=== PATIENT | female | born 1930 | race Caucasian/White ===

== ENCOUNTER 2017-02-12 07:19 | Inpatient (IN) ==
[2017-02-12] MEDS ORDERED: Pantoprazole 40 MG VIAL IVP ONE (07:25)
[2017-02-12] MEDS ORDERED: Ipratropium/Albuterol Neb 3 ML ONE (07:32)
[2017-02-12] MEDS ORDERED: Ipratropium/Albuterol Neb 3 ML IH ONE (07:37)
--- NOTE | 2017-02-12 07:39 | Emergency Department Note ---
Disposition Clinical Impression: Non-STEMI (non-ST elevated myocardial infarction) Pneumonia Qualifiers: Pneumonia type: due to unspecified organism Laterality: bilateral Lung location : lower lobe of lung Qualified Code(s): J18.9 - Pneumonia, unspecified organism Disposition: Admitted As Inpatient Condition: Fair Referrals: NO,PCP [Non-Partnered Physician] - Forms: ED Satisfaction Letter Time of Disposition: 09:08 GI Bleed HPI - General Chief complaint: ED GI Bleed Stated complaint: Vomiting Blood/EDNA Time Seen by Provider: 02/12/17 07:25 Source: patient, EMS Mode of arrival: EMS Limitations: no limitations Nursing Notes Reviewed: Yes Vital Signs Reviewed: Yes - History of Present Illness HPI Narrative: 86-year-old who lives in a [facility] very difficult historian who comes in as the care provider found some dark blood on the sheet next to her. The patient is awake and does answer questions. She denies pain at this time but states and asked she is nauseated and has some shortness of breath. 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 Severity: moderate Improves with: nothing Worsens with: nothing Context: other (Patient was found with dried blood on her sheet.) Associated symptoms: Reports: nausea - Related Data Home Medications Medication Instructions Recorded Confirmed Budesonide Neb [Pulmicort Neb] 0.5 mg IH BIDR 04/29/16 05/30/16 Calcium Carbonate/Vitamin D3 1 tab PO BID 04/29/16 05/30/16 [Oyster Shell 500-Vit D3 200 Tb] CarBAMazepine [Tegretol] 200 mg PO BID 04/29/16 04/29/16 CarBAMazepine [Tegretol] 400 mg PO HS 04/29/16 04/29/16 Famotidine [Pepcid] 20 mg PO HS 04/29/16 05/30/16 FentaNYL PATCH [Duragesic] 25 mcg TD Q72H 04/29/16 05/30/16 Ferrous Sulfate [Iron Supplement] 325 mg PO BID 04/29/16 05/30/16 HYDROcodone/Acet 5/325 mg [[place] 1 tab PO HS 04/29/16 05/30/16 5-325 mg] Multivit-Min/FA/Lycopen/Lutein 1 each PO DAILY 04/29/16 05/30/16 [Certavite Sr-Antioxidant Tab] OLANZapine [Zyprexa Zydis] 10 mg PO HS 04/29/16 05/30/16 Raloxifene [Evista] 60 mg PO DAILY 04/29/16 05/30/16 Eszopiclone [Lunesta] 3 mg PO HS 04/30/16 05/30/16 Previous Rx's Medication Instructions Recorded Albuterol Neb [Proventil Neb] 2.5 mg IH Q2H PRN #15 inhsol 04/30/16 Montelukast [Singulair] 10 mg PO DAILY 30 Days 04/30/16 PredniSONE 10 mg PO DAILY #50 tablet 04/30/16 Albuterol Neb [Proventil Neb] 2.5 mg IH Q4HR #30 vial.neb 07/03/16 Azithromycin [Zithromax] 250 mg PO DAILY #6 tablet 07/03/16 PredniSONE 10 mg PO DAILY #21 tablet 07/03/16 Allergies Allergy/AdvReac Type Severity Reaction Status Date / Time tb skin test Allergy See Uncoded 05/30/16 08:08 Comments All systems ED: reviewed and negative except as stated. Constitutional: Denies: fever, chills, weakness, weight change Eyes: Denies: eye pain, eye discharge, vision change ENT ED: Denies: ear pain, throat pain, dental pain, hearing loss, epistaxis, congestion, dysphagia Cardiovascular: Denies: chest pain, palpitations, dyspnea on exertion, edema, syncope Respiratory: Reports: cough, dyspnea. Denies: wheezes, hemoptysis, stridor Gastrointestinal: Reports: nausea, other (Dark blood on the sheet.). Denies: abdominal pain, vomiting, diarrhea, constipation, hematemesis, melena, hematochezia Genitourinary: Denies: dysuria, frequency, hematuria, discharge Musculoskeletal: Denies: back pain, neck pain, arthralgia, myalgia Integumentary: Denies: rash, abrasion, lesions Neurological: Denies: headache, weakness, numbness, paresthesias, confusion, abnormal gait, vertigo Psychiatric: Denies: anxiety, depression, suicidal thoughts, homicidal thoughts , auditory hallucinations, visual hallucinations Endocrine: Denies: fatigue Hematological/Lymphatic: Denies: easy bleeding, easy bruising Allergic/Immunologic: Denies: facial swelling, urticaria Past Medical History - Past Medical History Medical history: Reports: asthma, GERD, osteoporosis, other Psychiatric history: Reports: schizophrenia - Social History Smoking Status: Unknown if ever smoked Smokeless Tobacco Status: No Alcohol use: Reports: unknown Drug use: Reports: unknown Physical Exam - General Limitations: no limitations General appearance: alert - Head Head exam: atraumatic, normocephalic, normal inspection - Eye Eye exam: Present: normal appearance, PERRL, EOMI - ENT ENT exam: normal exam, normal oropharynx, mucous membranes moist - Neck Neck exam: Present: normal inspection, full ROM, trachea midline - Chest Chest inspection: Present: normal inspection, symmetric chest wall rise - Respiratory Respiratory exam: Present: wheezes - Cardiovascular Cardiovascular exam: Present: regular rate, normal rhythm, normal heart sounds - Abdominal Exam Abdominal exam: Present: soft, Non-Tender. Absent: tenderness, distention, guarding, rebound, rigidity - Extremities Exam Extremities exam: Present: normal inspection, full ROM. Absent: tenderness, pedal edema - Expanded Lower Extremity Exam Neurovascular/Tendon exam: Absent: motor deficit, sensory deficit, tendon deficit Gait: observed and normal - Back Exam Back exam: Present: normal inspection, full ROM. Absent: tenderness - Neurological Exam Neurological exam: Present: alert, oriented X3 - Psychiatric Psychiatric exam: Present: normal affect, normal mood - Skin Skin exam: Present: warm, dry, intact, normal color Course - Reevaluation(s) Reevaluation #1: Spoke to the patient's guardian Nirmal Keane ATILIO, the patient is a full code. Time: 08:05 Reevaluation #2: 86-year-old female who was found to have some dark material on her pillow beside her head this morning service GI bleed. Also set a cough and some shortness of breath. Workup included a chest x-ray that showed bilateral air space disease. CT of the abdomen shows a dilated colon was not significantly changed from previous. Patient's troponin is positive her EKG is unchanged. Patient will report was GI bleeding. We will not give heparin based on the fact that she had a large amount of brown material on her pillow that the home felt was blood. Time: 09:06 - Consultations Consultation #1: I discussed the case with malinda Gentile. Time: 09:03 Consultation #2: I discussed the CT scan results with the radiologist. He notes new airspace disease consistent with pneumonia which we are treating. 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 Patient's abdominal exam is negative she soft tissues nontender. Rectal exam was negative I didn't feel any masses. Time: 09:03 Vital Signs Temperature 98.2 F 02/12/17 07:30 Pulse Rate 91 02/12/17 07:30 Respiratory Rate 22 02/12/17 07:30 Blood Pressure 118/84 02/12/17 07:30 O2 Sat by Pulse Oximetry 86 02/12/17 07:30 Temperature 98.2 F 02/12/17 07:30 Pulse Rate 92 02/12/17 08:17 Respiratory Rate 18 02/12/17 08:17 Blood Pressure 105/55 02/12/17 08:17 O2 Sat by Pulse Oximetry 92 02/12/17 08:17 Oxygen Delivery Oxygen Delivery Nasal Cannula GI Bleed - Lab Data Lab results reviewed: Yes I reviewed the patient's lab results. Result diagrams: 02/12/17 07:53 02/12/17 07:53 Lab Results 02/12/17 02/12/17 02/12/17 Range/Units 07:50 07:51 07:53 WBC (4.3-11.1) K/mcL RBC (3.82-4.97) M/mcL Hgb (11.5-15.4) g/dL Hct (35.3-44.9) % MCV (83.0-100.0) fL MCH (28.0-33.3) pg MCHC (31.6-35.5) g/dL RDW (11.5-14.5) % Plt Count (140-400) K/mcL MPV (9.4-12.4) fL Seg Neutrophils % % Band Neutrophils % (0-4) % Lymphocytes % % Monocytes % % Neutrophils # (1.6-8.9) K/mcL Lymphocytes # (0.6-4.6) K/mcL Monocytes # (0.0-1.3) K/mcL Platelet Estimate (Normal) Immature Plt Fraction (1.1-6.1) % PT (9.4-12.1) Seconds INR APTT (26.0-36.0) Seconds ABG pH 7.42 (7.32-7.45) pH Units ABG pCO2 46 H (35-45) mmHg ABG pO2 48 L* (85-104) mmHg ABG HCO3 29.8 H (21-27) mEQ/L ABG Total CO2 31.2 H (20-26) mEq/L ABG O2 Saturation 84 L (95-98) % ABG Base Excess 4.7 H (-2.0 to 3.0) mEq/L Blood Gas Modality [place] Inspired O2 28 % Sodium (136-145) mEq/L Potassium (3.5-4.5) mEq/L Chloride (98-109) mEq/L Carbon Dioxide (19-29) mEq/L BUN (7-20) mg/dL Creatinine (0.57-1.11) mg/dL Est GFR ( Amer) (> 60) Est GFR (Non-Af Amer) (> 60) BUN/Creatinine Ratio (6-26) Glucose (70-99) mg/dL Calculated Osmolality (280-300) Lactic Acid 1.5 (0.5-2.2) mmol/L Calcium (8.6-10.8) mg/dL Troponin I (0-0.03) ng/mL Lipase (8-78) Units/L Stool Occult Blood Negative (Negative) Blood Type 02/12/17 02/12/17 02/12/17 Range/Units 07:53 07:53 07:53 WBC 13.3 H (4.3-11.1) K/mcL RBC 3.41 L (3.82-4.97) M/mcL Hgb 10.7 L (11.5-15.4) g/dL Hct 33.2 L (35.3-44.9) % MCV 97.4 (83.0-100.0) fL MCH 31.4 (28.0-33.3) pg MCHC 32.2 (31.6-35.5) g/dL RDW 12.6 (11.5-14.5) % Plt Count 265 (140-400) K/mcL MPV 10.3 (9.4-12.4) fL Seg Neutrophils % 70.0 % Band Neutrophils % 24.0 H (0-4) % Lymphocytes % 4.0 % Monocytes % 2.0 % Neutrophils # 12.5 H (1.6-8.9) K/mcL Lymphocytes # 0.5 L (0.6-4.6) K/mcL Monocytes # 0.3 (0.0-1.3) K/mcL Platelet Estimate Normal (Normal) Immature Plt Fraction 7.4 H (1.1-6.1) % PT 11.4 (9.4-12.1) Seconds INR 1.1 APTT 28.1 (26.0-36.0) Seconds ABG pH (7.32-7.45) pH Units ABG pCO2 (35-45) mmHg ABG pO2 (85-104) mmHg ABG HCO3 (21-27) mEQ/L ABG Total CO2 (20-26) mEq/L ABG O2 Saturation (95-98) % ABG Base Excess (-2.0 to 3.0) mEq/L Blood Gas Modality Inspired O2 % Sodium (136-145) mEq/L Potassium (3.5-4.5) mEq/L Chloride (98-109) mEq/L Carbon Dioxide (19-29) mEq/L BUN (7-20) mg/dL Creatinine (0.57-1.11) mg/dL Est GFR ( Amer) (> 60) Est GFR (Non-Af Amer) (> 60) BUN/Creatinine Ratio (6-26) Glucose (70-99) mg/dL Calculated Osmolality (280-300) Lactic Acid (0.5-2.2) mmol/L Calcium (8.6-10.8) mg/dL Troponin I 0.06 H* (0-0.03) ng/mL Lipase (8-78) Units/L Stool Occult Blood (Negative) Blood Type 02/12/17 02/12/17 Range/Units 07:53 07:53 WBC (4.3-11.1) K/mcL RBC (3.82-4.97) M/mcL Hgb (11.5-15.4) g/dL Hct (35.3-44.9) % MCV (83.0-100.0) fL MCH (28.0-33.3) pg MCHC (31.6-35.5) g/dL RDW (11.5-14.5) % Plt Count (140-400) K/mcL MPV (9.4-12.4) fL Seg Neutrophils % % Band Neutrophils % (0-4) % Lymphocytes % % Monocytes % % Neutrophils # (1.6-8.9) K/mcL Lymphocytes # (0.6-4.6) K/mcL Monocytes # (0.0-1.3) K/mcL Platelet Estimate (Normal) Immature Plt Fraction (1.1-6.1) % PT (9.4-12.1) Seconds INR APTT (26.0-36.0) Seconds ABG pH (7.32-7.45) pH Units ABG pCO2 (35-45) mmHg ABG pO2 (85-104) mmHg ABG HCO3 (21-27) mEQ/L ABG Total CO2 (20-26) mEq/L ABG O2 Saturation (95-98) % ABG Base Excess (-2.0 to 3.0) mEq/L Blood Gas Modality Inspired O2 % Sodium 139 (136-145) mEq/L Potassium 4.3 (3.5-4.5) mEq/L Chloride 103 (98-109) mEq/L Carbon Dioxide 30 H (19-29) mEq/L BUN 28 H (7-20) mg/dL Creatinine 0.79 (0.57-1.11) mg/dL Est GFR ( Amer) > 60 (> 60) Est GFR (Non-Af Amer) > 60 (> 60) BUN/Creatinine Ratio 35 H (6-26) Glucose 103 H (70-99) mg/dL Calculated Osmolality 294 (280-300) Lactic Acid (0.5-2.2) mmol/L Calcium 8.8 (8.6-10.8) mg/dL Troponin I (0-0.03) ng/mL Lipase < 4 L (8-78) Units/L Stool Occult Blood (Negative) Blood Type O POSITIVE - Radiology Data Radiology results reviewed: Yes I reviewed the patient's radiology results. Chest X-Ray 02/12/17 07:25 IMPRESSION: Low lung volumes. Asymmetric elevation of the right hemidiaphragm, stable. Airspace opacities in the right hemithorax, may be related to pulmonary edema versus pneumonia, new since the prior study. Trace right pleural effusion. D/ / Fredis Villareal MD / Fredis Villareal MD Interpreting Provider: Fredis Villareal MD Abdomen/Pelvis CT 02/12/17 07:29 IMPRESSION: Severe chronic colo rectal distention with large amount of stool and fluid throughout the colon increase in severity since prior examination. Findings suggest severe chronic colonic ileus. No definite evidence of a small bowel obstruction. Bibasilar airspace consolidation with bronchiectasis. Findings suggest acute on chronic aspiration pneumonia. Moderate size hiatal hernia not significantly changed since prior examination. Findings were discussed with Jarad Marc at 9:03 am on 02/12/2017. D/ / Nate Avendaño MD / Nate Avendaño MD Interpreting Provider: Nate Avendaño MD - EKG Data EKG attestation: Yes I reviewed and interpreted this EKG. 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 The aggregate critical care time was [30] minutes. This time is in addition to time spent performing reported procedures but includes the following: [x] Data Review and interpretation [x] Patient assessment and monitoring of vital signs [x] Documentation [x] Medication orders and management
[2017-02-12 07:58] LABS: ABG Base Excess 4.7 mEq/L (-2.0 to 3.0); ABG HCO3 29.8 mEQ/L (21-27); ABG Oxygen Saturation 84 % (95-98); ABG PCO2 46 mmHg (35-45); ABG PH 7.42 pH Units (7.32-7.45); ABG TCO2 31.2 mEq/L (20-26)
[2017-02-12 08:01] LABS: ABG PO2 48 mmHg (85-104); Blood Gas FiO2 28 %
[2017-02-12 08:09] LABS: Hematocrit 33.2 % (35.3-44.9); Hemoglobin 10.7 g/dL (11.5-15.4); Immature Platelets 7.4 % (1.1-6.1); Lymphocytes # 0.5 K/mcL (0.6-4.6); Mean Corpuscular HGB Conc 32.2 g/dL (31.6-35.5); Mean Corpuscular Hemoglobin 31.4 pg (28.0-33.3); Mean Corpuscular Volume 97.4 fL (83.0-100.0); Mean Platelet Volume 10.3 fL (9.4-12.4); Platelet Count 265 K/mcL (140-400); Red Blood Count 3.41 M/mcL (3.82-4.97); Red Cell Distribution Width 12.6 % (11.5-14.5)
[2017-02-12 08:13] LABS: INR 1.1; Prothrombin Time 11.4 Seconds (9.4-12.1)
[2017-02-12 08:16] LABS: Activated Partial Thrombo Time 28.1 Seconds (26.0-36.0)
[2017-02-12 08:20] LABS: BUN/Creatinine Ratio 35 (6-26); Calcium 8.8 mg/dL (8.6-10.8); Carbon Dioxide 30 mEq/L (19-29); Chloride 103 mEq/L (98-109); Glucose 103 mg/dL (70-99); Osmolality,Calculated 294 (280-300); Potassium 4.3 mEq/L (3.5-4.5); Sodium 139 mEq/L (136-145); eGFR For African Americans > 60 (> 60); eGFR For Non-African Americans > 60 (> 60)
[2017-02-12 08:21] LABS: Blood Urea Nitrogen 28 mg/dL (7-20)
[2017-02-12] MEDS ORDERED: Piperacillin/Tazobactam 3.375 GM in D5% in Water (Mini-Bag+) 100 ML IVPB ONE (08:33)
[2017-02-12 08:36] LABS: Lipase < 4 Units/L (8-78)
[2017-02-12 08:43] LABS: Monocytes # 0.3 K/mcL (0.0-1.3); Neutrophils # 12.5 K/mcL (1.6-8.9); Platelet Estimate Normal (Normal)
[2017-02-12] MEDS ORDERED: Acetaminophen 325 MG TABLET PO PRN (10:24)
[2017-02-12] MEDS ORDERED: Naloxone 0.4 MG/ML INJ IVP PRN (10:24)
[2017-02-12] MEDS ORDERED: Ondansetron 4 MG/2 ML VIAL IVP PRN (10:24)
--- NOTE | 2017-02-12 10:55 | Internal Med History&Physical ---
<Sergio Corbett - Last Filed: 02/12/17 15:58> Date of Encounter: 02/12/17 Internal Medicine - H&P: HPI History of present illness: Ms. Smith is a 86 year old female Internal Medicine - H&P: Meds Budesonide Neb [Pulmicort Neb] 0.5 mg IH BIDR 04/29/16 [History] Calcium Carbonate/Vitamin D3 [Oyster Shell 500-Vit D3 200 Tb] 1 tab PO BID 04/29 [History] CarBAMazepine [Tegretol] 200 mg PO BID 04/29/16 [History] CarBAMazepine [Tegretol] 400 mg PO HS 04/29/16 [History] Famotidine [Pepcid] 20 mg PO HS 04/29/16 [History] FentaNYL PATCH [Duragesic] 25 mcg TD Q72H 04/29/16 [History] Ferrous Sulfate [Iron Supplement] 325 mg PO BID 04/29/16 [History] Multivit-Min/FA/Lycopen/Lutein [Certavite Sr-Antioxidant Tab] 1 tab PO DAILY 01/10 [History] OLANZapine [Zyprexa Zydis] 10 mg PO HS 04/29/16 [History] Raloxifene [Evista] 60 mg PO DAILY 04/29/16 [History] HYDROcodone/Acet 10/325 mg [[place] 10-325 mg] 1 tab PO DAILY 02/12/17 [History] Mirtazapine [Remeron] 15 mg PO HS 02/12/17 [History] Allergies tb skin test Allergy (Uncoded 05/30/16 08:08) See Comments All Systems PM: A 10-system review of systems was performed and is negative for pertinent findings except as documented above in the HPI. - Constitutional Vitals: Temp Pulse Resp BP Pulse Ox 98.8 F 86 18 113/52 97 02/12/17 15:38 02/12/17 15:38 02/12/17 15:38 02/12/17 15:38 02/12/17 15:38 Internal Med - H&P Results - Labs CBC & Chem 7: 02/12/17 10:48 02/12/17 10:48 Labs: Short CBC 02/12/17 Range/Units 10:48 WBC 13.7 H (4.3-11.1) K/mcL Hgb 10.0 L (11.5-15.4) g/dL Hct 31.4 L (35.3-44.9) % Plt Count 241 (140-400) K/mcL Neutrophils # 8.0 (1.6-8.9) K/mcL BMP 02/12/17 10:48 Sodium 141 Potassium 4.0 Chloride 104 Carbon Dioxide 29 BUN 27 H Creatinine 0.82 Glucose 122 H Calcium 8.5 L Cardiac Enzymes 02/12/17 Range/Units 10:48 Troponin I 0.11 H* (0-0.03) ng/mL Liver Function 02/12/17 Range/Units 10:48 Total Bilirubin 0.6 (0.2-1.2) mg/dL AST 22 (5-34) Units/L ALT 17 (0-55) Units/L Alkaline Phosphatase 82 (38-126) Units/L Albumin 2.9 L (3.5-5.0) g/dL Urine 02/12/17 Range/Units 14:04 Urine Color Yellow (Yellow) Urine Clarity Cloudy A (Clear) Urine pH 6.5 (5.0-8.0) pH Units Ur Specific [place] 1.021 (1.010-1.025) Urine Protein Trace (Neg-Trace) mg/dL Urine Glucose (UA) Normal (Normal) mg/dL - Attending Attestation I examined this patient and my medical decision-making was reviewed with the [employer]/PA/Advanced Practice Nurse/Resident Physician. I agree with the documented findings, disposition and treatment plan as described except to the extent set forth below. I saw and examined this patient independently. Case D/W A AUXILIARY, I agree with his documentation. Patient admitted due to possible upper GI bleeding, radiological evidence of aspiration pneumonia with hypoxemia along with abdomen and CT findings concerning for ileus. We will continue with IV fluids, monitor hemoglobin, monitor troponins. We will avoid the use of medications with potential anticholinergic effect. Will not use heparin in light of possible GI bleeding. IV PPIs. Monitor cardiac biomarkers. Repeat electrolytes. NPO for now. GI eval. Patient is full code. Consider speech and swallow evaluation. <Pola Pennington - Last Filed: 02/12/17 18:25> Date of Encounter: 02/12/17 Time of Encounter: 10:00 Assessment and Plan (1) Sepsis Current visit: Yes Status: Acute Assess: Patient presents with infection related to possible aspiration pneumonia. Patient's white count 13.3 on admission. WBC is now 13.7 on latest blood draw. Patient presenting with bandemia with bands at 24.0 on admission. Plan: Continue Zosyn for infection coverage related to aspiration pneumonia Lactate level ordered Urinalysis ordered for possible UTI [place] catheter placement ordered Continue to monitor vitals Qualifiers: Sepsis type: sepsis due to unspecified organism Qualified Code(s): A41.9 - Sepsis, unspecified organism (2) GI bleed Current visit: Yes Status: Acute Assess: Patient presents to ED from [facility] due to bright blood in mouth and small amount found on sheets. Bleed is from unknown source. On examination, patient has area and roof of mouth which appears to be clotting. This could also be possible source of bleeding. Patient's caregivers report this area as new. Patient also presents as dehydrated. Plan: IV bolus ordered IV fluids ordered Nothing by mouth status Further assessment of area in mouth IV protonix ordered Zofran ordered PRN for nausea GI consult ordered Monitor hemoglobin/possible anemia Qualifiers: Gastritis type: unspecified gastritis Qualified Code(s): K29.71 - Gastritis , unspecified, with bleeding (3) Pneumonia Current visit: Yes Status: Acute Assess: Chest x-ray dated 02/12/17 shows asymmetric elevation of the right hemidiaphragm , stable. Airspace opacities in the right hemothorax. May be related to pulmonary edema versus pneumonia. Trace right pleural effusion. Aspiration pneumonia possible. Plan: Continuation of Zosyn Continuation of Pulmicort neb Continuation of order for O2 via nasal cannula to be titrated if SPO2 is less than 92% Continuous pulse ox monitoring Respiratory therapy consult ordered Qualifiers: Pneumonia type: aspiration pneumonia Aspiration pneumonia type: unspecified Laterality: unspecified laterality Lung location: unspecified part of lung Qualified Code(s): J69.0 - Pneumonitis due to inhalation of food and vomit (4) Ileus Current visit: Yes Status: Acute Assess: Patient presents with nausea and GI upset. Abdominal CT of 02/12/17 shows shows dilated loops of small bowel and fluid-filled small bowel which may be suggestive of ileus, colonic ileus, and a large amount of stool suggestive of fecal impaction. Plan: NPO status GI consult ordered Monitor I & O (5) Hypoxemia Current visit: Yes Status: Acute Assess: Patient's caregivers report periods of shortness of breath. Maybe due to possible aspiration pneumonia or pulmonary edema. Plan: Continuation of Zosyn for possible aspiration pneumonia Continuation of Pulmicort neb Continuation of O2 at 2 L via nasal cannula. O2 to be titrated if SpO2 less than 92% Continuous pulse ox (6) Non-STEMI (non-ST elevated myocardial infarction) Current visit: Yes Status: Acute Assess: Patient presents with history of abnormal EKGs. Plan: Continuous cardiac monitoring ordered Trend troponins 3 EV echocardiogram ordered (7) Abnormal EKG Current visit: Yes Status: Chronic Assess: Patient presents with history of abnormal EKGs. Plan: Continuous cardiac monitoring ordered Repeat EKG is necessary Trend troponins 3 EV echocardiogram ordered (8) Pain Current visit: Yes Status: Acute Assess: Patient's caregivers report history of chronic back pain related to osteoporosis diagnosis. Plan: Continuation of fentanyl patch Acetaminophen ordered for mild pain rated 1-3 Hydrocodone ordered for pain rated 4-6 Monitor patient's pain (9) DVT prophylaxis Current visit: Yes Status: Acute Assess: Patient to be placed on DVT prophylaxis due to bed rest status and history of abnormal EKGs. Plan: Compression hose ordered Patient should not be placed on blood thinners due to current bleeding status of unknown origin Internal Medicine - H&P: HPI Chief complaint: Sepsis, GI bleed, aspiration pneumonia Admitted From: Long-term Nursing Facility Plans for Post Hospital Care: Transfer Alf Care History of present illness: Ms. Smith is a 86 year old female who presents from the ED with chief complaint of possible GI bleed, aspiration pneumonia, and sepsis based on her presentation. Patient is unable to verbalize clearly due to her mental health status, so her two caregivers provided most of the information during assessment and exam. Patient has a history of abnormal EKGs as well. Patient was transported from a LTC facility when caregivers noticed bright blood in her mouth and a small amount on her sheets. Vital signs during exam were: HR - 88 bpm, O2 - 93% on 2L via nasal cannula, RR - 20, BP - 101/49. Patient's caregivers deny recent illness or fever. They also report the patient was not eating as usual yesterday (02/11/17) and only ate a small meal and snack. They report her last BM was yesterday and consisted of diarrhea which they report is her normal stool consistency. They deny fecal occult blood. Patient also presents as dehydrated on exam with dry mucous membranes and furrowed tongue. Upon exam, patient was found to have an area on the roof of her mouth with clotting present which may also account for the bright blood. Caregivers report this area in the mouth as new. CT scan of abdomen dated 02/12/17 shows dilated loops of small bowel and fluid-filled small bowel which may be suggestive of ileus, colonic ileus, and a large amount of stool suggestive of fecal impaction. GI consult was ordered. Caregivers also report periods of SOB. CXR dated 02/12/17 shows airspace opacities in the right hemithorax which may be indicative of pleural edema versus pneumonia. There is trace right pleural effusion. Patient's WBCs 13.3 on admission and 13.7 after second draw. Bands were 24.0 on admission. Troponins to be trended. Lactic acid ordered. U/A ordered. Patient to continue on Zosyn for possible infection coverage. GI consult ordered. EV Echo ordered due to patient's history of abnormal EKGs. Patient placed on NPO status and IV protonix ordered to address GI upset/ nausea. Patient is full code status and has a legal POA designated. Past Med Surg Social Fam HX - Past Medical History Medical history: GERD, osteoporosis, other Psychiatric history: schizophrenia - Past Surgical History Surgical History: colostomy (Ms. Smith's caregivers report she had a colostomy years ago for unknown reason and it was reversed. ) - Social History Smoking Status: Unknown if ever smoked Smokeless Tobacco Status: No Alcohol use: unknown Drug use: unknown - Family History Mother Race: Family Member Ethnicity: Non- Living Status: Age at : 80 Cause of : Unknown Hx Family Medical Disorders: No (No known health issues) Father Race: Family Member Ethnicity: Non- Living Status: Age at : 80 Cause of : Unknown Hx Family Medical Disorders: No (No known health issues) Brother Race: Family Member Ethnicity: Non- Living Status: Still Living Hx Family Medical Disorders: No (No known health issues) Sister Race: Family Member Ethnicity: Non- Living Status: Still Living Hx Family Medical Disorders: No (No known health issues) ROS unobtainable: other (Patient H&P obtained from two caregivers due to patient 's inability to verbalize clearly. Caregivers report this status as her normal baseline ability.) All Systems PM: A 10-system review of systems was performed and is negative for pertinent findings except as documented above in the HPI. - Constitutional Constitutional: as per HPI, anorexia Additional comments: Ms. Smith's caregivers report a loss of appetite yesterday (roughly 1 meal and 1 snack). Patient normally eats meals x3 and snacks throughout the day. - EENT Eyes: no change in vision, no discharge, no pain, no photophobia Ears: no ear discharge, no ear pain, no tinnitus Nose, mouth and throat: dry mouth, other, no dysphagia, no nasal discharge, no neck pain, no sore throat Additional comments: Patient currently presents as dehydrated with furrowing in tongue. Patient also has area on roof of mouth which appears to be clotting. Caregivers report this as new since they swab her mouth daily and have not seen this before. This could account for the small amount of bright blood found in mouth and on sheets. - Breasts Breasts: as per HPI - Cardiovascular Cardiovascular ROS IM: as per HPI, dyspnea Additional comments: Patient's caregivers report periodic SOB in patient. - Respiratory Respiratory: as per HPI, dyspnea Additional comments: Caregivers report occasional SOB in patient. - Gastrointestinal Gastrointestinal: diarrhea Additional comments: Patient's caregivers report she has 2 to 3 BMs per day consisting of diarrhea ( sometimes explosive). They report her last BM was diarrhea yesterday. - Genitourinary Genitourinary: urinary incontinence, no change in urinary stream, no dysuria, no flank pain, no hematuria Additional comments: Ms. Smith's caregivers report she sometimes has urinary incontinence (sporadic), but she will usually alert them when she needs to urinate. Menstruation: post menopausal - Musculoskeletal Musculoskeletal ROS IM: back pain, no numbness, no tingling Additional comments: Patient's caregivers report she has back pain related to osteoporosis which she takes hydrocodone/acetaminophen (5/325 mg 1x daily) and uses a fentanyl patch every 48 hours. - Integumentary Integumentary IM: no rash, no unusual bruising - Neurological Neurological ROS: abnormal speech, confusion, lack of coordination Additional comments: Patient's caregivers report her current status as her baseline (inability to verbalize, mild confusion, and a lack of coordination). - Psychiatric Psychiatric: as per HPI, change in appetite Additional comments: Ms. Smith's caregivers report patient's reduced appetite over the past 24 hours. - Endocrine Endocrine IM: as per HPI - Hematologic/Lymphatic Hematologic/Lymphatic: as per HPI Additional comments: Patient was found in bed at LTC facility with a small amount of bright blood in her mouth and drops of blood on her sheets from unknown source. - Allergic/Immunologic Allergic/Immunologic: as per HPI Additional comments: Patient's caregivers deny any allergies besides TB skin test. - Constitutional Vitals: Temp Pulse Resp BP Pulse Ox 98.2 F 85 18 101/49 94 02/12/17 07:30 02/12/17 09:08 02/12/17 09:55 02/12/17 09:55 02/12/17 10:27 General appearance: Present: A&O X 1, underweight Exam: Ms. Smith is unable to verbalize answers to questions, so her two caregivers provided information during assessment and examination. Ms. Smith is oriented to her name. Patient is underweight with a BMI of 16.3. - Head Head exam: Present: atraumatic, normocephalic - Eye Eye exam: Present: PERRL Pupils: Present: PERRL Additional comments: Patient partially opens her eyes when addressed or examined which her caregivers report as her normal. - ENT ENT exam: Present: mucous membranes dry Additional comments: Ms. Smith appears to be dehydrated. While patient cannot verbalize clearly, she can hear commands and simple explanations. - Neck Neck exam general surgery: Present: supple, trachea midline - Respiratory Respiratory exam: Absent: accessory muscle use, rales, rhonchi, wheezes Additional comments: Patient's RR = 20 with SpO2 = 93% on 2L of O2 via nasal cannula. Patient does not present as SOB or in respiratory distress. - Cardiovascular Cardiovascular exam: Present: RRR, +S1, +S2. Absent: diastolic murmur, gallop, rubs, systolic murmur - GI/Abdominal GI/Abdominal exam: Present: diminished bowel sounds, hypoactive bowel sounds, soft Additional comments: Patient's abdomen is soft and tender on palpation. hypoactive bowel sounds. Patient's last reported BM was yesterday consisting of diarrhea. - Rectal Rectal exam: Present: deferred - Additional comments: exam deferred. - Extremities Exam Extremities exam: Present: normal inspection, radial pulses palpable and symetrical - Back Exam Back exam: Present: normal inspection, vertebral tenderness Additional comments: Patient shows vertebral tenderness on examination, most likely due to osteoporosis. - Neurological Exam Neurological exam: Present: altered, speech deficit Additional comments: Ms. Smith presents with altered status, oriented to name, and inability to verbalize clearly. Her caregivers report this as her normal baseline. - Psychiatric Psychiatric exam: Present: agitated Additional comments: Patient presents with minor agitation during examination, but calms easily when spoken to. - Skin Skin exam: Present: dry, intact Internal Med - H&P Results - Labs CBC & Chem 7: 02/12/17 10:48 02/12/17 10:48 - EKG Data EKG shows normal: sinus rhythm - EKG Data Prior EKG available for review: yes Interpretation IM: other EKG comments: 02/12/17 11:36 EKG dated 02/12/17 shows sinus rhythm with marked left axis deviation and first degree AV block. EKG dated 08/02/16 shows sinus rhythm with marked left axis deviation. - Diagnostic Studies CT scan - pelvis Additional comments: CT Scan dated 02/12/17 shows: 1. Moderate-sized hiatal hernia relatively unchanged since prior examination. 2. Severe chronic colorectal distention with large amount of stool and fluid throughout the colon, suggestive of severe chronic colonic ileus. No definitive evidence of small bowel obstruction. 3. Bibasilar airspace consolidation with bronchiectasis. Findings suggest acute or chronic aspiration pneumonia. 4. Refer to CT results directly for other information. Chest x-ray Additional comments: Chest x-ray dated 02/12/17 shows asymmetric elevation of the right hemidiaphragm , stable. Airspace opacities in the right hemothorax. May be related to pulmonary edema versus pneumonia. Trace right pleural effusion.
[2017-02-12 10:59] LABS: Hematocrit 31.4 % (35.3-44.9); Mean Corpuscular HGB Conc 31.8 g/dL (31.6-35.5); Mean Corpuscular Volume 97.2 fL (83.0-100.0); Mean Platelet Volume 10.1 fL (9.4-12.4); Platelet Count 241 K/mcL (140-400); Red Blood Count 3.23 M/mcL (3.82-4.97); Red Cell Distribution Width 12.6 % (11.5-14.5)
[2017-02-12] MEDS: 0.9 % Sodium Chloride 1,000 ML IVC SCH ×2 (11:02→17:52)
[2017-02-12 11:11] LABS: Alanine Aminotransferase 17 Units/L (0-55); Albumin 2.9 g/dL (3.5-5.0); Albumin/Globulin Ratio 0.9 (1.1-2.2); Alkaline Phosphatase 82 Units/L (38-126); Aspartate Amino Transferase 22 Units/L (5-34); BUN/Creatinine Ratio 33 (6-26); Bilirubin,Total 0.6 mg/dL (0.2-1.2); Blood Urea Nitrogen 27 mg/dL (7-20); Calcium 8.5 mg/dL (8.6-10.8); Carbon Dioxide 29 mEq/L (19-29); Chloride 104 mEq/L (98-109); Globulin 3.2 g/dL (2.4-3.5); Glucose 122 mg/dL (70-99); Osmolality,Calculated 298 (280-300); Sodium 141 mEq/L (136-145); Total Protein 6.1 g/dL (6.0-8.3); eGFR For African Americans > 60 (> 60); eGFR For Non-African Americans > 60 (> 60)
[2017-02-12 11:23] LABS: Platelet Estimate Normal (Normal)
[2017-02-12 12:05] LABS: Lymphocytes # 1.4 K/mcL (0.6-4.6); Monocytes # 0.6 K/mcL (0.0-1.3)
[2017-02-12] MEDS ORDERED: 0.9 % Sodium Chloride 500 ML IVC ONE (13:02)
[2017-02-12 14:11] LABS: Bilirubin,Urine Negative (Negative); Blood,Urine Negative (Negative); Clarity,Urine Cloudy (Clear); Color,Urine Yellow (Yellow); Glucose,Urine (UA) Normal (Normal); Ketones,Urine Negative (Negative); Leukocyte Esterase,Urine Moderate (Negative); Nitrite,Urine Positive (Negative); PH,Urine 6.5 pH Units (5.0-8.0); Protein,Urine Trace mg/dL (Neg-Trace); Specific Gravity,Urine 1.021 (1.010-1.025); Urobilinogen,Urine Normal (Normal)
[2017-02-12 14:16] LABS: Bacteria,Urine Many per hpf (None-Few); Hyaline Casts,Urine None Seen per lpf (None-Few); Squamous Epithelial Cell,Urine Many per lpf (None-Few); WBC,Urine 15-30 per hpf (0-3)
[2017-02-12] MEDS: *HR* HYDROcodone/Acet 5/325 mg TABLET PO PRN (15:10)
[2017-02-12] MEDS: carBAMazepine 200 MG TABLET PO SCH ×2 (15:10→21:17)
[2017-02-12] MEDS ORDERED: 0.9 % Sodium Chloride 1,000 ML IVC ONE (16:07)
[2017-02-12] MEDS: Piperacillin/Tazobactam 3.375 GM in D5% in Water (Mini-Bag+) 100 ML IVPB SCH (16:22)
--- NOTE | 2017-02-12 16:48 | Electrocardiograph Report ---
[address] [address] Test Date: 2017-02-12 Pat Name: Cheyenne Smith Department: 104 Room: 2A37 Gender: F Transmission Tester: MSC : 1930 Requested By: Jarad Marc Order Number: [id number] Reading MD: Bailey Arvizu Measurements Intervals [place] Rate: 90 P: 51 NE: 224 QRS: -35 QRSD: 94 T: 0 QT: 335 QTc: 383 Interpretive Statements SINUS RHYTHM WITH FIRST DEGREE AV BLOCK MARKED LEFT AXIS DEVIATION INCOMPLETE RIGHT BUNDLE BRANCH BLOCK Electronically Signed On 02-12-2017 16:47:04 EDT by Bailey Arvizu
[2017-02-12] MEDS: Pantoprazole 40 MG VIAL IVP SCH (17:58)
[2017-02-12] MEDS ORDERED: Furosemide 20 MG/2 ML VIAL IVP ONE (19:04)
[2017-02-12] MEDS: OLANZapine 10 MG TAB.RAPDIS PO SCH (21:18)
[2017-02-12] MEDS: Budesonide Neb 0.5 MG/2 ML IH SCH (23:00)
[2017-02-13] MEDS: Piperacillin/Tazobactam 3.375 GM in D5% in Water (Mini-Bag+) 100 ML IVPB SCH ×3 (02:02→17:00)
[2017-02-13] MEDS: *HR* HYDROcodone/Acet 5/325 mg TABLET PO PRN ×2 (03:16→09:03)
[2017-02-13] MEDS: Pantoprazole 40 MG VIAL IVP SCH ×2 (05:45→16:59)
[2017-02-13] MEDS: 0.9 % Sodium Chloride 1,000 ML IVC SCH ×2 (06:01→22:47)
[2017-02-13 07:39] LABS: Hematocrit 30.2 % (35.3-44.9); Hemoglobin 9.7 g/dL (11.5-15.4); Mean Corpuscular HGB Conc 32.1 g/dL (31.6-35.5); Mean Corpuscular Hemoglobin 31.8 pg (28.0-33.3); Mean Platelet Volume 11.5 fL (9.4-12.4); Monocytes # 0.8 K/mcL (0.0-1.3); Platelet Count 224 K/mcL (140-400); Red Blood Count 3.05 M/mcL (3.82-4.97); Red Cell Distribution Width 13.2 % (11.5-14.5)
[2017-02-13 08:00] LABS: Lymphocytes # 1.3 K/mcL (0.6-4.6); Neutrophils # 14.4 K/mcL (1.6-8.9); Platelet Estimate Normal (Normal)
[2017-02-13 08:40] LABS: Hemoglobin 10.7 g/dL (11.5-15.4)
[2017-02-13 08:55] LABS: Alanine Aminotransferase 18 Units/L (0-55); Albumin 2.8 g/dL (3.5-5.0); Albumin/Globulin Ratio 0.8 (1.1-2.2); Alkaline Phosphatase 78 Units/L (38-126); Aspartate Amino Transferase 21 Units/L (5-34); BUN/Creatinine Ratio 29 (6-26); Bilirubin,Direct 0.2 mg/dL (0.0-0.5); Bilirubin,Indirect 0.3 mg/dL (0.0-1.2); Bilirubin,Total 0.5 mg/dL (0.2-1.2); Blood Urea Nitrogen 23 mg/dL (7-20); Calcium 8.2 mg/dL (8.6-10.8); Carbon Dioxide 28 mEq/L (19-29); Chloride 109 mEq/L (98-109); Globulin 3.3 g/dL (2.4-3.5); Glucose 80 mg/dL (70-99); Magnesium 1.7 mg/dL (1.6-2.6); Osmolality,Calculated 301 (280-300); Potassium 3.4 mEq/L (3.5-4.5); Sodium 144 mEq/L (136-145); Total Protein 6.1 g/dL (6.0-8.3); eGFR For African Americans > 60 (> 60); eGFR For Non-African Americans > 60 (> 60)
[2017-02-13] MEDS: carBAMazepine 200 MG TABLET PO SCH ×3 (09:03→21:39)
[2017-02-13] MEDS ORDERED: Potassium Chloride 40 MEQ, Lidocaine 1% 2 ML in D5% in Water 500 ML IVPB ONE (09:08)
[2017-02-13] MEDS ORDERED: Magnesium Sulfate 2 GM in D5% in Water 100 ML IVPB ONE (09:08)
[2017-02-13] MEDS: Budesonide Neb 0.5 MG/2 ML IH SCH ×2 (10:17→20:33)
--- NOTE | 2017-02-13 10:34 | ECHO - Doppler Report ---
Echocardiogram Name: Cheyenne Smith Date of Study: 02/12/2017 Date: 1930 Ht: 62.0 in Medical Record#: [id number] Age: 86 Wt: 89.0 lb Gender: Female BSA: 1.35 Order #: [id number] Location: [facility] Room #: 2A37 Reading Physician: Michele Perez DO, FACSharlene, ALIYAH Facetor: Liliana Coffey Ordering Physician: Pola Pennington CNP Primary Physician: Dawit Baez MD Indications: Abnormal EKG Impressions: LVEF 60-65%. Normal LV chamber size, wall thickness and function. Mild left ventricular diastolic dysfunction. Normal right ventricular structure and function. Mild aortic stenosis. Mean gradient 11 mmHg. Mild tricuspid regurgitation. Mild pulmonary hypertension. Estimated RVSP is 43 mmHg. Left Ventricular Wall Motion: Rest Echo Findings All wall segments showed normal motion. Findings: Study Quality * Technically adequate exam. ECG Findings * Normal sinus rhythm. Left Ventricle * LVEF 60-65%. * Normal LV chamber size, wall thickness and function. * Mild left ventricular diastolic dysfunction. Right Ventricle * Normal right ventricular structure and function. Left Atrium * Mildly dilated left atrium. Right Atrium * Normal right atrial size. Interatrial Septum * Interatrial septum not well evaluated. Aortic Valve * Trileaflet aortic valve. * Mildly calcified aortic valve leaflets. * Mild aortic stenosis. * No aortic regurgitation. Mitral Valve * Mild mitral annular calcification * Mildly thickened mitral valve leaflets. * Trace mitral regurgitation. * No mitral stenosis. Tricuspid Valve * Normal tricuspid valve structure. * Mild tricuspid regurgitation. * Mild pulmonary hypertension. * Estimated RVSP is 43 mmHg. * Estimated RA pressure is 5 mmHg. Pulmonic Valve * Normal pulmonic valve structure and function. * No pulmonic regurgitation. Aorta * Normally sized aortic root. Pericardium * The pericardium appears normal. IVC * Normal IVC dimensions and inspiratory collapse. Pulmonary Artery * Normal visualized portions of the main pulmonary artery. History 07/17/2012 a Previous Echo was performed. Measurements: BP: 113/ 52 2D Normal Values RVIDd: 4.00 cm <2.7 cm IVSd: .60 cm 0.6 - 1.0 cm LVIDd: 3.90 cm 3.7 - 5.6 cm LVPWd: .80 cm 0.6 - 1.1 cm LVIDs: 2.70 cm 1.5 - 3.6 cm AO: 2.20 cm < 4.0 cm LA: 3.90 cm 2.0 - 4.0cm %FS: 30.80 cm >25 % LVOT Diam: 1.60 cm LA volume: 35 Mitral Valve Peak E:1.26 m/sec Peak A:1.24 m/sec E/A Ratio:1 LVOT Peak Cecilio:1.27 m/sec Mean Cecilio:.76 m/sec Peak Grad:6.00 mmHg Mean Grad:3.00 mmHg Aortic Valve Peak Cecilio:2.37 m/sec Mean Cecilio:1.57 m/sec Peak Grad:22.00 mmHg Mean Grad:11.00 mmHg Valve Area:1.09 cm2 Tricuspid Valve TV Regurg Peak Grad: 38.00mmHg TV Regurg Peak Cecilio: 3.09m/sec Updated by Michele Perez DO, XAVIER, PITO LY on 02/13/2017 10:25:29 AM electronically signed on 02/13/2017 10:28:08 AM with status of Final Wall Motion Nunez: 1=Normal, 2=Hypokinesis, 3=Akinesis, 4=Dyskinesis, 5=Aneurysmal, 6=Hyperkinetic, X=Not Visualized (Blank)=Missing
--- NOTE | 2017-02-13 11:17 | Gastroenterology Consult Note ---
<NewellNirmal Sharlene - Last Filed: 02/13/17 11:15> Date of Encounter: 02/13/17 Time of Encounter: 10:00 - Assessment and plan (1) GI bleed Current Visit: Yes Status: Acute Assessment and plan: No active bleeding noted. Hgb stable. Continue to monitor for active GI bleeding. Monitor CBC and transfuse PRBC as needed. Qualifiers: Gastritis type: unspecified gastritis Qualified Code(s): K29.71 - Gastritis , unspecified, with bleeding (2) Constipation Current Visit: Yes Status: Acute Assessment and plan: CT A/P dated 02/12/17 shows dilated loops of small bowel and fluid-filled small bowel which may be suggestive of ileus, colonic ileus, and a large amount of stool suggestive of fecal impaction. Start Nulytely 500 ml every 8 hours and 2 tap water enemas. Qualifiers: Constipation type: unspecified constipation type Qualified Code(s): K59.00 - Constipation, unspecified (3) Ileus Current Visit: Yes Status: Acute (4) Pneumonia Current Visit: Yes Status: Acute Assessment and plan: Management per primary team. Qualifiers: Pneumonia type: aspiration pneumonia Aspiration pneumonia type: unspecified Laterality: unspecified laterality Lung location: unspecified part of lung Qualified Code(s): J69.0 - Pneumonitis due to inhalation of food and vomit - Time Spent With Patient Total time spent is greater than 50% in coordination of care (as documented) at patient's floor/unit and/or counseling patient: GI History of Present Illness - Data of Consult Patient: new to practice Consult date: 02/13/17 Requesting Physician: Sergio Corbett - Consult Narrative Reason for consult: Possible fecal impaction History of present illness: Ms. Smith is a 86 year old female with PMHx of GERD who presented with possible GI bleed, aspiration pneumonia, dementia, and sepsis. Patient was transported from a LTC facility when caregivers noticed bright blood in her mouth and a small amount on her sheets. Patient's caregivers deny recent illness or fever. They report her last BM was yesterday and consisted of diarrhea which they report is her normal stool consistency. They deny fecal occult blood. CT A/P dated 02/12/17 shows dilated loops of small bowel and fluid-filled small bowel which may be suggestive of ileus, colonic ileus, and a large amount of stool suggestive of fecal impaction. Hgb on admission 10.7 and this AM Hgb 10.7. Procedures: Colonoscopy 10/16/2012 with colonic foreign body. NSAIDs: None Anticoagulation: None Past Med Surg Social Fam HX - Past Medical History Medical history: GERD, osteoporosis, other Psychiatric history: schizophrenia - Past Surgical History Surgical History: colostomy (Ms. Smith's caregivers report she had a colostomy years ago for unknown reason and it was reversed. ) - Social History Smoking Status: Unknown if ever smoked Smokeless Tobacco Status: No Alcohol use: unknown Drug use: unknown - Family History Mother Race: Family Member Ethnicity: Non- Living Status: Age at : 80 Cause of : Unknown Hx Family Medical Disorders: No (No known health issues) Father Race: Family Member Ethnicity: Non- Living Status: Age at : 80 Cause of : Unknown Hx Family Medical Disorders: No (No known health issues) Brother Race: Family Member Ethnicity: Non- Living Status: Still Living Hx Family Medical Disorders: No (No known health issues) Sister Race: Family Member Ethnicity: Non- Living Status: Still Living Hx Family Medical Disorders: No (No known health issues) ROS unobtainable: due to mental status - Constitutional Vitals: Temp Pulse Resp BP Pulse Ox 98.4 F 82 18 124/60 92 02/13/17 07:37 02/13/17 07:37 02/13/17 10:17 02/13/17 07:37 02/13/17 10:17 General appearance: Present: A&O X 0, cooperative, no acute distress - Head Head exam: Present: atraumatic, normocephalic - Eye Eye exam: Present: normal appearance, sclera anicteric - ENT ENT exam: Present: mucous membranes dry - Neck Neck exam general surgery: Present: normal inspection, trachea midline - Respiratory Respiratory exam: Present: decreased breath sounds, CTAB - Cardiovascular Cardiovascular exam: Present: RRR, +S1, +S2 - GI/Abdominal GI/Abdominal exam: Present: soft, no peritoneal signs. Absent: distended, firm , guarding, tenderness - Rectal Rectal exam: Present: deferred - Extremities Exam Extremities exam: Present: warm - Neurological Exam Neurological exam: Present: no focal deficits - Psychiatric Psychiatric exam: Present: normal affect, normal mood - Skin Skin exam: Present: dry, intact, normal color, warm Results - Labs CBC & Chem 7: 02/13/17 08:00 02/13/17 08:00 Labs: Last Result Calcium 8.2 mg/dL (8.6-10.8) L 02/13/17 08:00 Troponin I 0.13 ng/mL (0-0.03) H* 02/13/17 00:55 Stool Occult Blood Negative (Negative) 02/12/17 07:51 Entire Visit Hgb 10.7 g/dL (11.5-15.4) L 02/13/17 08:00 Hct 33.0 % (35.3-44.9) L 02/13/17 08:00 PT 11.4 Seconds (9.4-12.1) 02/12/17 07:53 Total Bilirubin 0.5 mg/dL (0.2-1.2) 02/13/17 08:00 AST 21 Units/L (5-34) 02/13/17 08:00 ALT 18 Units/L (0-55) 02/13/17 08:00 Lipase < 4 Units/L (8-78) L 02/12/17 07:53 - ABG ABG results: ABG ABG pH 7.42 pH Units (7.32-7.45) 02/12/17 07:50 ABG pCO2 46 mmHg (35-45) H 02/12/17 07:50 ABG pO2 48 mmHg (85-104) L* 02/12/17 07:50 ABG O2 Saturation 84 % (95-98) L 02/12/17 07:50 PT/INR, D-dimer PT 11.4 Seconds (9.4-12.1) 02/12/17 07:53 Consult Discharge Plan - Plan Referrals: Dawit Baez MD [Primary Care Provider] - 02/21/17 1:20 pm (Please follow up as schedule...) <Jabier John - Last Filed: 02/13/17 17:27> Date of Encounter: 02/13/17 Time of Encounter: 14:00 - Time Spent With Patient Total time spent is greater than 50% in coordination of care (as documented) at patient's floor/unit and/or counseling patient: GI History of Present Illness - Data of Consult Requesting Physician: Sergio Corbett - Consult Narrative History of present illness: Ms. Smith is a 86 year old female - Constitutional Vitals: Temp Pulse Resp BP Pulse Ox 98.8 F 80 22 142/70 91 02/13/17 16:24 02/13/17 16:24 02/13/17 16:24 02/13/17 16:24 02/13/17 16:24 Results - Labs CBC & Chem 7: 02/13/17 08:00 02/13/17 08:00 Labs: Last Result Calcium 8.2 mg/dL (8.6-10.8) L 02/13/17 08:00 Troponin I 0.13 ng/mL (0-0.03) H* 02/13/17 00:55 Stool Occult Blood Negative (Negative) 02/12/17 07:51 Entire Visit Hgb 10.7 g/dL (11.5-15.4) L 02/13/17 08:00 Hct 33.0 % (35.3-44.9) L 02/13/17 08:00 PT 11.4 Seconds (9.4-12.1) 02/12/17 07:53 Total Bilirubin 0.5 mg/dL (0.2-1.2) 02/13/17 08:00 AST 21 Units/L (5-34) 02/13/17 08:00 ALT 18 Units/L (0-55) 02/13/17 08:00 Lipase < 4 Units/L (8-78) L 02/12/17 07:53 - ABG ABG results: ABG ABG pH 7.42 pH Units (7.32-7.45) 02/12/17 07:50 ABG pCO2 46 mmHg (35-45) H 02/12/17 07:50 ABG pO2 48 mmHg (85-104) L* 02/12/17 07:50 ABG O2 Saturation 84 % (95-98) L 02/12/17 07:50 PT/INR, D-dimer PT 11.4 Seconds (9.4-12.1) 02/12/17 07:53 - Attending Attestation I examined this patient and my medical decision-making was reviewed with the PILLOWCASE SEWER/PA/Advanced Practice Nurse/Resident Physician. I agree with the documented findings, disposition and treatment plan as described except to the extent set forth below. Abdomen not distended patient with chronic constipation, will treat conservatively and no need for any endoscopy procedure
--- NOTE | 2017-02-13 15:20 | Internal Med Progress Note ---
Date of Encounter: 02/13/17 Time of Encounter: 15:18 - Assessment and plan (1) Sepsis Current Visit: Yes Status: Acute Assessment and plan: Gram negative rods in the urine culture, pneumonia in the CT, leukocytosis, will continue with zosyn for now and adjust based on final results of cultures. Lactic acid WNL upon normal limits. Continue monitoring. Qualifiers: Sepsis type: sepsis due to unspecified organism Qualified Code(s): A41.9 - Sepsis, unspecified organism (2) UTI (urinary tract infection) Current Visit: Yes Status: Acute Assessment and plan: Gram negative rods in urine. Continue iv antibiotics. Qualifiers: Urinary tract infection type: site unspecified Hematuria presence: without hematuria Qualified Code(s): N39.0 - Urinary tract infection, site not specified (3) Pneumonia Current Visit: Yes Status: Acute Assessment and plan: Continue antibiotics, follow cultures. NPO for now except meds. Speech and swallow eval requested. Qualifiers: Pneumonia type: aspiration pneumonia Aspiration pneumonia type: unspecified Laterality: unspecified laterality Lung location: unspecified part of lung Qualified Code(s): J69.0 - Pneumonitis due to inhalation of food and vomit (4) Non-STEMI (non-ST elevated myocardial infarction) Current Visit: Yes Status: Acute Assessment and plan: No heparin. No EKG changes continue, conservative management. (5) GI bleed Current Visit: Yes Status: Acute Assessment and plan: Hb stable. GI input noted. Qualifiers: Gastritis type: unspecified gastritis Qualified Code(s): K29.71 - Gastritis , unspecified, with bleeding (6) DVT prophylaxis Current Visit: Yes Status: Acute - Subjective Interval history: patient seen and examined. Afebrile.Good urine output yesterday. Caregiver from the half-way present during this encounter. Patient denies pain. Responds to verbal stmuli. - Constitutional Vitals: Temp Pulse Resp BP Pulse Ox 98.3 F 72 20 109/49 92 02/13/17 11:28 02/13/17 11:28 02/13/17 11:28 02/13/17 11:28 02/13/17 11:28 General appearance: Present: A&O X 1, underweight - Head Head exam: Present: atraumatic, normocephalic - Eye Eye exam: Present: PERRL, conjuntiva pink, sclera anicteric Pupils: Present: PERRL - Neck Neck exam general surgery: Present: supple, trachea midline. Absent: lymphadenopathy - Respiratory Respiratory exam: Present: decreased breath sounds. Absent: accessory muscle use, rales, rhonchi, wheezes - Cardiovascular Cardiovascular exam: Present: RRR, +S1, +S2. Absent: diastolic murmur, gallop, rubs, systolic murmur - GI/Abdominal GI/Abdominal exam: Present: normal bowel sounds, soft, no peritoneal signs. Absent: distended, tenderness - Extremities Exam Extremities exam: Present: warm, radial pulses palpable and symetrical. Absent : calf tenderness, cyanotic, pedal edema - Neurological Exam Neurological exam: Present: CN II-XII intact, no focal deficits. Absent: pronater drift, facial droop, speech deficit - Skin Skin exam: Present: dry, intact Internal Medicine: Result - Labs CBC & Chem 7: 02/13/17 08:00 02/13/17 08:00 Labs: Short CBC 02/13/17 02/13/17 Range/Units 00:53 08:00 WBC 16.6 H (4.3-11.1) K/mcL Hgb 9.7 L 10.7 L (11.5-15.4) g/dL Hct 30.2 L 33.0 L (35.3-44.9) % Plt Count 224 (140-400) K/mcL Neutrophils # 14.4 H (1.6-8.9) K/mcL BMP 02/13/17 08:00 Sodium 144 Potassium 3.4 L Chloride 109 Carbon Dioxide 28 BUN 23 H Creatinine 0.79 Glucose 80 Calcium 8.2 L Cardiac Enzymes 02/12/17 02/13/17 Range/Units 17:24 00:55 Troponin I 0.14 H* 0.13 H* (0-0.03) ng/mL Liver Function 02/13/17 Range/Units 08:00 Total Bilirubin 0.5 (0.2-1.2) mg/dL Direct Bilirubin 0.2 (0.0-0.5) mg/dL AST 21 (5-34) Units/L ALT 18 (0-55) Units/L Alkaline Phosphatase 78 (38-126) Units/L Albumin 2.8 L (3.5-5.0) g/dL - ABG Interpretation ABG results: ABG ABG pH 7.42 pH Units (7.32-7.45) 02/12/17 07:50 ABG pCO2 46 mmHg (35-45) H 02/12/17 07:50 ABG pO2 48 mmHg (85-104) L* 02/12/17 07:50 ABG O2 Saturation 84 % (95-98) L 02/12/17 07:50 PT/INR, D-dimer PT 11.4 Seconds (9.4-12.1) 02/12/17 07:53 - VTE Documentation of Mechanical Device: Graduated compression elastic hosiery Consult Discharge Plan - Plan Referrals: Dawit Baez MD [Primary Care Provider] - 02/21/17 1:20 pm (Please follow up as schedule...)
[2017-02-13] MEDS: *HR* FentaNYL PATCH 25 MCG PATCH TD SCH (16:59)
[2017-02-13] MEDS ORDERED: SODIUM CHLORIDE/NAHCO3/KCL/PEG 4,000 ML SOLN.RECON PO ONE (17:00)
[2017-02-13] MEDS: *HR* Morphine 2 MG/ML SYRINGE IVP PRN (17:44)
[2017-02-13] MEDS: OLANZapine 10 MG TAB.RAPDIS PO SCH (22:40)
[2017-02-13] MEDS ORDERED: *HR* LORazepam 2 MG/ML VIAL IVP ONE (23:36)
[2017-02-14] MEDS: Piperacillin/Tazobactam 3.375 GM in D5% in Water (Mini-Bag+) 100 ML IVPB SCH (00:29)
[2017-02-14] MEDS: *HR* Morphine 2 MG/ML SYRINGE IVP PRN ×3 (02:41→23:36)
[2017-02-14 05:32] LABS: Basophils % 0.3 %; Eosinophils # 0.1 K/mcL (0.0-0.6); Eosinophils % 0.8 %; Hematocrit 29.2 % (35.3-44.9); Hemoglobin 9.3 g/dL (11.5-15.4); Immature Granulocytes % 0.4 % (0-4); Lymphocytes # 1.5 K/mcL (0.6-4.6); Lymphocytes % 14.6 %; Mean Corpuscular HGB Conc 31.8 g/dL (31.6-35.5); Mean Corpuscular Hemoglobin 31.2 pg (28.0-33.3); Mean Platelet Volume 11.3 fL (9.4-12.4); Monocytes # 0.9 K/mcL (0.0-1.3); Monocytes % 8.3 %; Neutrophils # 7.8 K/mcL (1.6-8.9); Platelet Count 189 K/mcL (140-400); Red Blood Count 2.98 M/mcL (3.82-4.97); Red Cell Distribution Width 13.1 % (11.5-14.5); Segmented Neutrophils % 75.6 %
[2017-02-14 05:54] LABS: BUN/Creatinine Ratio 25 (6-26); Blood Urea Nitrogen 19 mg/dL (7-20); Calcium 7.7 mg/dL (8.6-10.8); Carbon Dioxide 23 mEq/L (19-29); Chloride 111 mEq/L (98-109); Glucose 75 mg/dL (70-99); Osmolality,Calculated 293 (280-300); Potassium 3.7 mEq/L (3.5-4.5); Sodium 141 mEq/L (136-145); eGFR For African Americans > 60 (> 60); eGFR For Non-African Americans > 60 (> 60)
[2017-02-14] MEDS: Pantoprazole 40 MG VIAL IVP SCH ×2 (05:58→17:43)
[2017-02-14] MEDS: carBAMazepine 200 MG TABLET PO SCH ×3 (09:20→21:00)
[2017-02-14] MEDS: D5% in 0.45% NACL 1,000 ML IVC SCH ×2 (09:20→20:58)
[2017-02-14] MEDS: Ampicillin/Sulbactam 3,000 MG in 0.9 % Sodium Chloride Mini Bag 100 ML IVPB SCH ×2 (09:22→21:00)
[2017-02-14] MEDS: Budesonide Neb 0.5 MG/2 ML IH SCH ×2 (10:44→22:29)
--- NOTE | 2017-02-14 16:25 | Internal Med Progress Note ---
Date of Encounter: 02/14/17 Time of Encounter: 16:23 - Assessment and plan (1) Sepsis Current Visit: Yes Status: Acute Assessment and plan: pansensitive e coli isolated in the urine culture, pneumonia in the CT, leukocytosis resolved, will deescalte from zosyn and switch to unasyn for now since is sensitive as per the urine culture and is an option which covers for aspiration pneumonia as well. lactic acid WNL. blood culture shows no growth so far. continue iv fluids, potassium corrected, bun improved, bicarbonate improved. continue monitoring. Qualifiers: Sepsis type: sepsis due to unspecified organism Qualified Code(s): A41.9 - Sepsis, unspecified organism (2) UTI (urinary tract infection) Current Visit: Yes Status: Acute Assessment and plan: e coli in urine. continue iv antibiotics: unasyn as per sensitivity. Qualifiers: Urinary tract infection type: site unspecified Hematuria presence: without hematuria Qualified Code(s): N39.0 - Urinary tract infection, site not specified (3) Pneumonia Current Visit: Yes Status: Acute Assessment and plan: likely aspiration pna, continue antibiotics, follow cultures. speech and swallow eval requested,, diet modified as per recommendations, switched from npo. . Qualifiers: Pneumonia type: aspiration pneumonia Aspiration pneumonia type: unspecified Laterality: unspecified laterality Lung location: unspecified part of lung Qualified Code(s): J69.0 - Pneumonitis due to inhalation of food and vomit (4) Non-STEMI (non-ST elevated myocardial infarction) Current Visit: Yes Status: Acute Assessment and plan: no heparin. no EKG changes continue, conservative management. (5) GI bleed Current Visit: Yes Status: Acute Assessment and plan: Hb stable. GI input noted. no endoscopic studies. Qualifiers: Gastritis type: unspecified gastritis Qualified Code(s): K29.71 - Gastritis , unspecified, with bleeding (6) DVT prophylaxis Current Visit: Yes Status: Acute - Subjective Interval history: patient seen and examined. Afebrile. Good urine output. Patient denies pain. Responds to verbal stmuli. - Constitutional Vitals: Temp Pulse Resp BP Pulse Ox 98.1 F 80 16 127/55 97 02/14/17 15:30 02/14/17 15:30 02/14/17 15:30 02/14/17 15:30 02/14/17 15:30 General appearance: Present: A&O X 1, underweight - Head Head exam: Present: atraumatic, normocephalic - Eye Eye exam: Present: PERRL, conjuntiva pink, sclera anicteric Pupils: Present: PERRL - Neck Neck exam general surgery: Present: supple, trachea midline. Absent: lymphadenopathy - Respiratory Respiratory exam: Present: CTAB. Absent: accessory muscle use, rales, rhonchi, wheezes - Cardiovascular Cardiovascular exam: Present: RRR, +S1, +S2. Absent: diastolic murmur, gallop, rubs, systolic murmur - GI/Abdominal GI/Abdominal exam: Present: normal bowel sounds, soft, no peritoneal signs. Absent: distended, tenderness - Extremities Exam Extremities exam: Present: warm, radial pulses palpable and symetrical. Absent : calf tenderness, cyanotic, pedal edema - Neurological Exam Neurological exam: Present: CN II-XII intact. Absent: pronater drift, facial droop, speech deficit - Skin Skin exam: Present: dry, intact Internal Medicine: Result - Labs CBC & Chem 7: 02/14/17 04:35 02/14/17 04:35 Labs: Short CBC 02/14/17 Range/Units 04:35 WBC 10.3 (4.3-11.1) K/mcL Hgb 9.3 L (11.5-15.4) g/dL Hct 29.2 L (35.3-44.9) % Plt Count 189 (140-400) K/mcL Neutrophils # 7.8 (1.6-8.9) K/mcL BMP 02/14/17 04:35 Sodium 141 Potassium 3.7 Chloride 111 H Carbon Dioxide 23 BUN 19 Creatinine 0.75 Glucose 75 Calcium 7.7 L - ABG Interpretation ABG results: ABG ABG pH 7.42 pH Units (7.32-7.45) 02/12/17 07:50 ABG pCO2 46 mmHg (35-45) H 02/12/17 07:50 ABG pO2 48 mmHg (85-104) L* 02/12/17 07:50 ABG O2 Saturation 84 % (95-98) L 02/12/17 07:50 PT/INR, D-dimer PT 11.4 Seconds (9.4-12.1) 02/12/17 07:53 - Impressions Impressions Videofluoroscopic Swallow 02/14/17 00:01 IMPRESSION: No evidence of laryngeal penetration or golden aspiration. Please see separate speech pathology report for full discussion of findings and recommendations. D/ / Fredis Villareal MD / Fredis Villareal MD Interpreting Provider: Fredis Villareal MD - VTE Documentation of Mechanical Device: Graduated compression elastic hosiery Consult Discharge Plan - Plan Referrals: Dawit Baez MD [Primary Care Provider] - 02/21/17 1:20 pm (Please follow up as schedule...)
[2017-02-14] MEDS: *HR* HYDROcodone/Acet 5/325 mg TABLET PO PRN (17:43)
[2017-02-14] MEDS: OLANZapine 10 MG TAB.RAPDIS PO SCH (21:00)
[2017-02-15] MEDS: Pantoprazole 40 MG VIAL IVP SCH (05:44)
[2017-02-15 05:50] LABS: Basophils % 0.3 %; Eosinophils # 0.3 K/mcL (0.0-0.6); Eosinophils % 2.9 %; Hematocrit 29.9 % (35.3-44.9); Hemoglobin 9.6 g/dL (11.5-15.4); Immature Granulocytes % 0.6 % (0-4); Lymphocytes # 1.3 K/mcL (0.6-4.6); Lymphocytes % 14.2 %; Mean Corpuscular HGB Conc 32.1 g/dL (31.6-35.5); Mean Corpuscular Volume 96.5 fL (83.0-100.0); Mean Platelet Volume 10.8 fL (9.4-12.4); Monocytes # 0.7 K/mcL (0.0-1.3); Monocytes % 7.2 %; Neutrophils # 6.7 K/mcL (1.6-8.9); Platelet Count 204 K/mcL (140-400); Red Cell Distribution Width 12.8 % (11.5-14.5); Segmented Neutrophils % 74.8 %
[2017-02-15 06:09] LABS: BUN/Creatinine Ratio 25 (6-26); Blood Urea Nitrogen 16 mg/dL (7-20); Calcium 7.7 mg/dL (8.6-10.8); Carbon Dioxide 25 mEq/L (19-29); Chloride 109 mEq/L (98-109); Glucose 133 mg/dL (70-99); Magnesium 1.7 mg/dL (1.6-2.6); Osmolality,Calculated 289 (280-300); Potassium 3.7 mEq/L (3.5-4.5); Sodium 138 mEq/L (136-145); eGFR For African Americans > 60 (> 60); eGFR For Non-African Americans > 60 (> 60)
[2017-02-15] MEDS: carBAMazepine 200 MG TABLET PO SCH ×3 (07:56→21:12)
[2017-02-15] MEDS: *HR* Morphine 2 MG/ML SYRINGE IVP PRN ×2 (07:59→21:13)
[2017-02-15] MEDS: Ampicillin/Sulbactam 3,000 MG in 0.9 % Sodium Chloride Mini Bag 100 ML IVPB SCH ×2 (08:26→21:12)
[2017-02-15] MEDS: Budesonide Neb 0.5 MG/2 ML IH SCH ×2 (10:38→22:19)
[2017-02-15] MEDS: D5% in 0.45% NACL 1,000 ML IVC SCH (11:17)
[2017-02-15] MEDS ORDERED: Magnesium Sulfate 2 GM in D5% in Water 100 ML IVPB ONE (15:22)
--- NOTE | 2017-02-15 15:26 | Internal Med Progress Note ---
Date of Encounter: 02/15/17 Time of Encounter: 15:23 - Assessment and plan (1) Sepsis Current Visit: Yes Status: Acute Assessment and plan: pansensitive e coli isolated in the urine culture, pneumonia in the CT, leukocytosis resolved, will continue with unasyn for now since is sensitive as per the urine culture and is an option which covers for aspiration pneumonia as well. lactic acid WNL. blood culture shows no growth so far. continue iv fluids, potassium corrected, bun improved, bicarbonate improved. continue monitoring. patient is very debilitated, however stable, plan is t discharge her back to longterm. for now still on iv fluids, might d/c fluids tomorrow, she is able to swallow and need assistance with feeding, will start d/c planning, if orl intake improves might discharge her back to longterm on po augmentin to cover both uti and pna. Qualifiers: Sepsis type: sepsis due to unspecified organism Qualified Code(s): A41.9 - Sepsis, unspecified organism (2) UTI (urinary tract infection) Current Visit: Yes Status: Acute Qualifiers: Urinary tract infection type: site unspecified Hematuria presence: without hematuria Qualified Code(s): N39.0 - Urinary tract infection, site not specified (3) Pneumonia Current Visit: Yes Status: Acute Qualifiers: Pneumonia type: aspiration pneumonia Aspiration pneumonia type: unspecified Laterality: unspecified laterality Lung location: unspecified part of lung Qualified Code(s): J69.0 - Pneumonitis due to inhalation of food and vomit (4) Non-STEMI (non-ST elevated myocardial infarction) Current Visit: Yes Status: Acute (5) GI bleed Current Visit: Yes Status: Acute Qualifiers: Gastritis type: unspecified gastritis Qualified Code(s): K29.71 - Gastritis , unspecified, with bleeding (6) DVT prophylaxis Current Visit: Yes Status: Acute - Subjective Interval history: patient seen and examined. Afebrile. Good urine output. Patient denies pain. Responds to verbal stmuli. No visitors seen today. - Constitutional Vitals: Temp Pulse Resp BP Pulse Ox 97.2 F L 69 20 128/69 93 02/15/17 08:00 02/15/17 08:00 02/15/17 10:38 02/15/17 08:00 02/15/17 10:38 General appearance: Present: A&O X 1, underweight - Head Head exam: Present: atraumatic, normocephalic - Eye Eye exam: Present: PERRL, conjuntiva pink, sclera anicteric Pupils: Present: PERRL - Neck Neck exam general surgery: Present: supple, trachea midline. Absent: lymphadenopathy - Respiratory Respiratory exam: Present: CTAB. Absent: accessory muscle use, rales, rhonchi, wheezes - Cardiovascular Cardiovascular exam: Present: RRR, +S1, +S2. Absent: diastolic murmur, gallop, rubs, systolic murmur - GI/Abdominal GI/Abdominal exam: Present: normal bowel sounds, soft, no peritoneal signs. Absent: distended, tenderness - Extremities Exam Extremities exam: Present: warm, radial pulses palpable and symetrical. Absent : calf tenderness, cyanotic, pedal edema - Neurological Exam Neurological exam: Present: CN II-XII intact, oriented X3, no focal deficits. Absent: pronater drift, facial droop, speech deficit - Skin Skin exam: Present: dry, intact Internal Medicine: Result - Labs CBC & Chem 7: 02/15/17 04:48 02/15/17 04:48 Labs: Short CBC 02/15/17 Range/Units 04:48 WBC 9.0 (4.3-11.1) K/mcL Hgb 9.6 L (11.5-15.4) g/dL Hct 29.9 L (35.3-44.9) % Plt Count 204 (140-400) K/mcL Neutrophils # 6.7 (1.6-8.9) K/mcL BMP 02/15/17 04:48 Sodium 138 Potassium 3.7 Chloride 109 Carbon Dioxide 25 BUN 16 Creatinine 0.64 Glucose 133 H Calcium 7.7 L - ABG Interpretation ABG results: ABG ABG pH 7.42 pH Units (7.32-7.45) 02/12/17 07:50 ABG pCO2 46 mmHg (35-45) H 02/12/17 07:50 ABG pO2 48 mmHg (85-104) L* 02/12/17 07:50 ABG O2 Saturation 84 % (95-98) L 02/12/17 07:50 PT/INR, D-dimer PT 11.4 Seconds (9.4-12.1) 02/12/17 07:53 - VTE Documentation of Mechanical Device: Graduated compression elastic hosiery Consult Discharge Plan - Plan Referrals: Dawit Baez MD [Primary Care Provider] - 02/21/17 1:20 pm (Please follow up as schedule...)
[2017-02-15] MEDS: OLANZapine 10 MG TAB.RAPDIS PO SCH (21:12)
[2017-02-16] MEDS: D5% in 0.45% NACL 1,000 ML IVC SCH ×2 (00:19→19:41)
[2017-02-16 04:54] LABS: Basophils % 0.3 %; Eosinophils # 0.2 K/mcL (0.0-0.6); Eosinophils % 2.6 %; Hematocrit 31.3 % (35.3-44.9); Hemoglobin 10.1 g/dL (11.5-15.4); Immature Granulocytes % 0.6 % (0-4); Lymphocytes # 1.5 K/mcL (0.6-4.6); Lymphocytes % 20.3 %; Mean Corpuscular HGB Conc 32.3 g/dL (31.6-35.5); Mean Corpuscular Hemoglobin 31.2 pg (28.0-33.3); Mean Corpuscular Volume 96.6 fL (83.0-100.0); Mean Platelet Volume 11.1 fL (9.4-12.4); Monocytes # 0.8 K/mcL (0.0-1.3); Monocytes % 10.6 %; Neutrophils # 4.7 K/mcL (1.6-8.9); Platelet Count 217 K/mcL (140-400); Red Blood Count 3.24 M/mcL (3.82-4.97); Red Cell Distribution Width 12.7 % (11.5-14.5); Segmented Neutrophils % 65.6 %
[2017-02-16] MEDS: *HR* Morphine 2 MG/ML SYRINGE IVP PRN ×2 (05:00→19:38)
[2017-02-16 05:08] LABS: BUN/Creatinine Ratio 17 (6-26); Blood Urea Nitrogen 11 mg/dL (7-20); Calcium 7.8 mg/dL (8.6-10.8); Carbon Dioxide 25 mEq/L (19-29); Chloride 110 mEq/L (98-109); Glucose 122 mg/dL (70-99); Osmolality,Calculated 295 (280-300); Potassium 3.7 mEq/L (3.5-4.5); Sodium 142 mEq/L (136-145); eGFR For African Americans > 60 (> 60); eGFR For Non-African Americans > 60 (> 60)
[2017-02-16] MEDS: carBAMazepine 200 MG TABLET PO SCH ×3 (09:55→20:36)
[2017-02-16] MEDS: Ampicillin/Sulbactam 3,000 MG in 0.9 % Sodium Chloride Mini Bag 100 ML IVPB SCH ×2 (09:55→20:36)
[2017-02-16] MEDS: Budesonide Neb 0.5 MG/2 ML IH SCH ×2 (10:17→21:34)
--- NOTE | 2017-02-16 14:39 | Internal Med Progress Note ---
Date of Encounter: 02/16/17 Time of Encounter: 14:39 - Assessment and plan (1) Pneumonia Current Visit: Yes Status: Acute Assessment and plan: likely aspiration pna, continue antibiotics, follow cultures. speech and swallow eval requested,, diet modified as per recommendations . Qualifiers: Pneumonia type: aspiration pneumonia Aspiration pneumonia type: unspecified Laterality: unspecified laterality Lung location: unspecified part of lung Qualified Code(s): J69.0 - Pneumonitis due to inhalation of food and vomit (2) Non-STEMI (non-ST elevated myocardial infarction) Current Visit: Yes Status: Acute Assessment and plan: no heparin. no EKG changes continue, conservative management. (3) GI bleed Current Visit: Yes Status: Acute Assessment and plan: Hb stable. GI input noted. no endoscopic studies. Qualifiers: Gastritis type: unspecified gastritis Qualified Code(s): K29.71 - Gastritis , unspecified, with bleeding (4) Sepsis Current Visit: Yes Status: Acute Assessment and plan: pansensitive e coli isolated in the urine culture, pneumonia in the CT, leukocytosis resolved, will continue with unasyn for now since is sensitive as per the urine culture and is an option which covers for aspiration pneumonia as well. lactic acid WNL. blood culture shows no growth so far. continue iv fluids, potassium corrected, bun improved, bicarbonate improved. continue monitoring. patient is very debilitated, however stable, plan is t discharge her back to halfway. for now still on iv fluids, might d/c fluids tomorrow, she is able to swallow and need assistance with feeding, will start d/c planning, if orl intake improves might discharge her back to halfway on po augmentin to cover both uti and pna. Qualifiers: Sepsis type: sepsis due to unspecified organism Qualified Code(s): A41.9 - Sepsis, unspecified organism (5) UTI (urinary tract infection) Current Visit: Yes Status: Acute Assessment and plan: e coli in urine. continue iv antibiotics: unasyn as per sensitivity. Qualifiers: Urinary tract infection type: site unspecified Hematuria presence: without hematuria Qualified Code(s): N39.0 - Urinary tract infection, site not specified - Subjective Interval history: Seen at bedside Being fed screaming occasionally patient is stable for discharge Per RN, she has fecal impaction and has not had a BM for days Plan is to dismpact and discharge when she starts to have BM - Constitutional Vitals: Temp Pulse Resp BP Pulse Ox 97.9 F 76 18 138/54 99 02/16/17 11:21 02/16/17 11:21 02/16/17 11:21 02/16/17 11:21 02/16/17 11:21 General appearance: Present: A&O X 1, underweight - Head Head exam: Present: atraumatic, normocephalic - Eye Eye exam: Present: PERRL, conjuntiva pink, sclera anicteric Pupils: Present: PERRL - Neck Neck exam general surgery: Present: supple, trachea midline. Absent: lymphadenopathy - Respiratory Respiratory exam: Present: CTAB. Absent: accessory muscle use, rales, rhonchi, wheezes - Cardiovascular Cardiovascular exam: Present: RRR, +S1, +S2. Absent: diastolic murmur, gallop, rubs, systolic murmur - GI/Abdominal GI/Abdominal exam: Present: normal bowel sounds, soft, no peritoneal signs. Absent: distended, tenderness - Extremities Exam Extremities exam: Present: warm, radial pulses palpable and symetrical. Absent : calf tenderness, cyanotic, pedal edema - Neurological Exam Neurological exam: Present: alert, CN II-XII intact, no focal deficits. Absent : pronater drift, facial droop, speech deficit - Skin Skin exam: Present: dry, intact Internal Medicine: Result - Labs CBC & Chem 7: 02/16/17 03:26 02/16/17 03:26 Labs: Short CBC 02/16/17 Range/Units 03:26 WBC 7.2 (4.3-11.1) K/mcL Hgb 10.1 L (11.5-15.4) g/dL Hct 31.3 L (35.3-44.9) % Plt Count 217 (140-400) K/mcL Neutrophils # 4.7 (1.6-8.9) K/mcL BMP 02/16/17 03:26 Sodium 142 Potassium 3.7 Chloride 110 H Carbon Dioxide 25 BUN 11 Creatinine 0.63 Glucose 122 H Calcium 7.8 L - ABG Interpretation ABG results: ABG ABG pH 7.42 pH Units (7.32-7.45) 02/12/17 07:50 ABG pCO2 46 mmHg (35-45) H 02/12/17 07:50 ABG pO2 48 mmHg (85-104) L* 02/12/17 07:50 ABG O2 Saturation 84 % (95-98) L 02/12/17 07:50 PT/INR, D-dimer PT 11.4 Seconds (9.4-12.1) 02/12/17 07:53 - VTE Documentation of Mechanical Device: Graduated compression elastic hosiery Consult Discharge Plan - Plan Referrals: Dawit Baez MD [Primary Care Provider] - 02/21/17 1:20 pm (Please follow up as schedule...)
[2017-02-16] MEDS: *HR* FentaNYL PATCH 25 MCG PATCH TD SCH (16:12)
[2017-02-16] MEDS: OLANZapine 10 MG TAB.RAPDIS PO SCH (20:36)
[2017-02-16] MEDS ORDERED: Bisacodyl 10 MG RECTAL SUPPOSITORY RC SCH (21:00)
[2017-02-17 04:53] LABS: Basophils % 0.3 %; Eosinophils # 0.3 K/mcL (0.0-0.6); Eosinophils % 3.5 %; Hematocrit 32.1 % (35.3-44.9); Hemoglobin 10.3 g/dL (11.5-15.4); Immature Granulocytes % 0.4 % (0-4); Lymphocytes % 25.2 %; Mean Corpuscular HGB Conc 32.1 g/dL (31.6-35.5); Mean Corpuscular Hemoglobin 30.7 pg (28.0-33.3); Mean Corpuscular Volume 95.8 fL (83.0-100.0); Mean Platelet Volume 10.6 fL (9.4-12.4); Monocytes # 0.9 K/mcL (0.0-1.3); Monocytes % 11.8 %; Neutrophils # 4.7 K/mcL (1.6-8.9); Platelet Count 263 K/mcL (140-400); Red Blood Count 3.35 M/mcL (3.82-4.97); Red Cell Distribution Width 12.6 % (11.5-14.5); Segmented Neutrophils % 58.8 %
[2017-02-17 05:04] LABS: BUN/Creatinine Ratio 18 (6-26); Blood Urea Nitrogen 10 mg/dL (7-20); Calcium 8.1 mg/dL (8.6-10.8); Carbon Dioxide 25 mEq/L (19-29); Chloride 107 mEq/L (98-109); Glucose 100 mg/dL (70-99); Osmolality,Calculated 291 (280-300); Potassium 3.2 mEq/L (3.5-4.5); Sodium 141 mEq/L (136-145); eGFR For African Americans > 60 (> 60); eGFR For Non-African Americans > 60 (> 60)
[2017-02-17] MEDS: D5% in 0.45% NACL 1,000 ML IVC SCH (06:58)
[2017-02-17] MEDS ORDERED: Potassium Chloride Elixir 20 MEQ/15 ML UDC PO ONE (09:44)
[2017-02-17] MEDS: Budesonide Neb 0.5 MG/2 ML IH SCH ×2 (10:26→21:00)
[2017-02-17] MEDS: Ampicillin/Sulbactam 3,000 MG in 0.9 % Sodium Chloride Mini Bag 100 ML IVPB SCH ×3 (10:41→23:33)
[2017-02-17] MEDS: carBAMazepine 200 MG TABLET PO SCH ×3 (10:41→21:09)
--- NOTE | 2017-02-17 10:52 | Physician Discharge Referral ---
ExtendedCare Referral Info Transfer To: SNF/detention Provider in Charge: Dr. Mckeon Provider in Charge after Transfer: PCP Institutional Level of Care: Skilled - Diagnosis (1) Pneumonia Priority: Primary Status: Acute (2) Non-STEMI (non-ST elevated myocardial infarction) Priority: Primary Status: Ruled-out (3) GI bleed Priority: Primary Status: Ruled-out (4) Sepsis Priority: Primary Status: Acute (5) UTI (urinary tract infection) Priority: Primary Status: Acute Prognosis: Fair Aware of Diagnosis: Family Aware of Prognosis: Family - Transfer Medications Prescriptions: Amoxicillin/Clavulanate [Augmentin] 875 mg PO BIDWM #10 tablet FentaNYL PATCH [Duragesic] 25 mcg TD Q72H #5 patch.td72 HYDROcodone/Acet 10/325 mg [[place] 10-325 mg] 1 tab PO DAILY #10 tablet Home Medications: Budesonide Neb [Pulmicort Neb] 0.5 mg IH BIDR 04/29/16 [History] Calcium Carbonate/Vitamin D3 [[place] 500-Vit D3 200 Tb] 1 tab PO BID 04/29 [History] CarBAMazepine [Tegretol] 200 mg PO BID 04/29/16 [History] CarBAMazepine [Tegretol] 400 mg PO HS 04/29/16 [History] Famotidine [Pepcid] 20 mg PO HS 04/29/16 [History] Ferrous Sulfate [Iron Supplement] 325 mg PO BID 04/29/16 [History] Multivit-Min/FA/Lycopen/Lutein [Certavite Sr-Antioxidant Tab] 1 tab PO DAILY 01/10 [History] OLANZapine [Zyprexa Zydis] 10 mg PO HS 04/29/16 [History] Raloxifene [Evista] 60 mg PO DAILY 04/29/16 [History] Mirtazapine [Remeron] 15 mg PO HS 02/12/17 [History] Amoxicillin/Clavulanate [Augmentin] 875 mg PO BIDWM #10 tablet 02/17/17 [Rx] FentaNYL PATCH [Duragesic] 25 mcg TD Q72H #5 patch.td72 02/17/17 [Rx] HYDROcodone/Acet 10/325 mg [[place] 10-325 mg] 1 tab PO DAILY #10 tablet 02/17/17 [Rx] Allergies/Adverse Reactions: Allergies tb skin test Allergy (Uncoded 05/30/16 08:08) See Comments - Respiratory Orders Oxygen / L per min (2-3 L to achieve O2 sat of at least 92%) Smoking Cessation: Smoking cessation has been advised. For more information, call the [place] Tobacco Quit Line at 1-288-INHZ-NOW. - Advance Directives Code Status: Full Code - Mobility Orders Bedrest - Rehabiliation Orders Rehab Potential: Poor - Diet Orders Pureed (Meds crushed in puree, assisted feeds all the time. Ensure plus tid) CERTIFICATION: I certify that the transfer of the above named patient to an Extended Care Facility is necessary for the continuing treatment of the diagnosis listed. The above information is true and accurate reflection of patient's current condition. Confidential - Redisclosure prohibited without a patient's written consent.
--- NOTE | 2017-02-17 11:08 | Discharge Summary ---
Date of Encounter: 02/17/17 Time of Encounter: 10:53 - Discharge Diagnosis (1) Pneumonia Priority: Primary Status: Acute Qualifiers: Pneumonia type: aspiration pneumonia Aspiration pneumonia type: unspecified Laterality: unspecified laterality Lung location: unspecified part of lung Qualified Code(s): J69.0 - Pneumonitis due to inhalation of food and vomit (2) Non-STEMI (non-ST elevated myocardial infarction) Priority: Primary Status: Ruled-out (3) GI bleed Priority: Secondary Status: Ruled-out Qualifiers: Gastritis type: unspecified gastritis Qualified Code(s): K29.71 - Gastritis , unspecified, with bleeding (4) Sepsis Priority: Primary Status: Acute Qualifiers: Sepsis type: sepsis due to unspecified organism Qualified Code(s): A41.9 - Sepsis, unspecified organism (5) UTI (urinary tract infection) Priority: Primary Status: Acute Qualifiers: Urinary tract infection type: site unspecified Hematuria presence: without hematuria Qualified Code(s): N39.0 - Urinary tract infection, site not specified (6) Ileus Priority: Primary Status: Resolved - Discharge Medications Prescriptions: Amoxicillin/Clavulanate [Augmentin] 875 mg PO BIDWM #10 tablet FentaNYL PATCH [Duragesic] 25 mcg TD Q72H #5 patch.td72 HYDROcodone/Acet 10/325 mg [[place] 10-325 mg] 1 tab PO DAILY #10 tablet Home Medications: Budesonide Neb [Pulmicort Neb] 0.5 mg IH BIDR 04/29/16 [History] Calcium Carbonate/Vitamin D3 [[place] 500-Vit D3 200 Tb] 1 tab PO BID 04/29 [History] CarBAMazepine [Tegretol] 200 mg PO BID 04/29/16 [History] CarBAMazepine [Tegretol] 400 mg PO HS 04/29/16 [History] Famotidine [Pepcid] 20 mg PO HS 04/29/16 [History] Ferrous Sulfate [Iron Supplement] 325 mg PO BID 04/29/16 [History] Multivit-Min/FA/Lycopen/Lutein [Certavite Sr-Antioxidant Tab] 1 tab PO DAILY 01/10 [History] OLANZapine [Zyprexa Zydis] 10 mg PO HS 04/29/16 [History] Raloxifene [Evista] 60 mg PO DAILY 04/29/16 [History] Mirtazapine [Remeron] 15 mg PO HS 02/12/17 [History] Amoxicillin/Clavulanate [Augmentin] 875 mg PO BIDWM #10 tablet 02/17/17 [Rx] FentaNYL PATCH [Duragesic] 25 mcg TD Q72H #5 patch.td72 02/17/17 [Rx] HYDROcodone/Acet 10/325 mg [[place] 10-325 mg] 1 tab PO DAILY #10 tablet 02/17/17 [Rx] Allergies/Adverse Reactions: Allergies tb skin test Allergy (Uncoded 05/30/16 08:08) See Comments Date of admission: 02/12/17 10:24 Primary care physician: Dawit Baez MD Consults: 02/12/17 12:34 Consult to Gastroenterology [CONS] Routine Consulting Provider: Gastroenterology Jackie Reason for Consult: Possible GI bleed, possible fecal impaction/small bowel ileus/colonic ileus based on CT of abdomen of 02/12/17 Call Completed: Yes 02/13/17 11:41 Consult to Speech Therapy [CONS] Routine Comment: Evaluate, develop and implement POC Reason for Consult: Swallow Call Completed: No Discharging clinician: Isaak Mckeon Anticipated date of discharge: 02/17/17 - Patient Status Disposition: Transfer SNF Condition: Fair Functional capacity at discharge: bed bound Overall status at discharge: patient is progressing back to baseline - Discharge Instructions Follow Up With: Dawit Baez MD [Primary Care Provider] - 02/21/17 1:20 pm (Please follow up as schedule...) - Diet and Activity Activity: resume usual activities as tolerated Diet: other (Pureed diet, assisted feeds, crush medications in puree) Interval History: See below Hospital course: Ms. Smith is a 86 year old female with MH of Schizophrenia, MRDD, resident of correction, GERD, Chronic constipation, Chronic pain syndrome Patient presented with nausea and GI upset. Was said to have been found with golden red blood in her mouth hence she was transferred for evaluation for GI bleed. She was found with bright red bleed in her mouth as per ER chart on admission Work up on admission revealed Patient's white count 13.3 on admission with bandemia with bands at 24.0 on admission, Her hb was stable at 10.7 and remained atable at ~10 throughout admission UA showed UTI, Urine culture showed davies-sensitive UTI Imaging revealed Abdominal CT of 02/12/17 shows shows dilated loops of small bowel and fluid-filled small bowel which may be suggestive of ileus, colonic ileus, and a large amount of stool suggestive of fecal impaction. Chest x-ray dated 02/12/17 shows asymmetric elevation of the right hemidiaphragm , stable. Airspace opacities in the right hemothorax. May be related to pulmonary edema versus pneumonia. Trace right pleural effusion. Aspiration pneumonia possible EKG was also abnormal with LAD, IRBB, First degree A-V block She was admitted for management of Severe ileus with fecal impaction, Sepsis seconday to UTI and Aspiration pneumonia, Suspected UGIB, Abnormal EKG Patient was managed with IV antibiotics, GI was cnsulted and UGIB was ruled out without plan for intervention. ECHO showed no wall motion abnormalities and an MD was ruled out She received multiple enemas and laxatives with manual fecal dis-impaction and is now having regular BM She also received Unasyn for 4 days IV for UTI and pneumonia She was evaluated and speech and swallow for aspiration and diet has been changed to pureed diet with feeding assistance recommended. Videofluoroscopy was normal Patient's chronic medical conditions are otherwise stable She is seen at bedside this morning, at her baseline mental status and is stable to be discharged back to her correction Medications have been reconciled to include po antibiotics She will benefit from a daily stool softener and laxative due to her chronic opiate use, this has not been included in her med rec because she is now having loose stools as a result of the enema, encourage to restart at correction Follow up with correction PCP - Time Spent with Patient Total time spent providing and/or coordinating discharge services: Greater than 30 minutes (40 minutes spent on chart review, patient encounter, medication reconciliation and prescrption and documentation) - Constitutional Vitals: Temp Pulse Resp BP Pulse Ox 98.5 F 83 18 159/74 99 02/17/17 07:24 02/17/17 07:24 02/17/17 10:26 02/17/17 07:24 02/17/17 10:26 General appearance: Present: A&O X 1, underweight - Head Head exam: Present: atraumatic, normocephalic - Eye Eye exam: Present: PERRL, conjuntiva pink, sclera anicteric Pupils: Present: PERRL - Neck Neck exam general surgery: Present: supple, trachea midline. Absent: lymphadenopathy - Respiratory Respiratory exam: Present: CTAB. Absent: accessory muscle use, rales, rhonchi, wheezes - Cardiovascular Cardiovascular exam: Present: RRR, +S1, +S2. Absent: diastolic murmur, gallop, rubs, systolic murmur - GI/Abdominal GI/Abdominal exam: Present: normal bowel sounds, soft, no peritoneal signs. Absent: distended, tenderness - Extremities Exam Extremities exam: Present: warm, radial pulses palpable and symetrical. Absent : calf tenderness, cyanotic, pedal edema Additional comments: Contracted - Neurological Exam Neurological exam: Present: alert, CN II-XII intact, no focal deficits. Absent : oriented X3, pronater drift, facial droop, speech deficit - Skin Skin exam: Present: dry - VTE Documentation of Mechanical Device: Graduated compression elastic hosiery
[2017-02-17] MEDS: OLANZapine 10 MG TAB.RAPDIS PO SCH (21:07)
[2017-02-18] MEDS: Ampicillin/Sulbactam 3,000 MG in 0.9 % Sodium Chloride Mini Bag 100 ML IVPB SCH (06:26)
[2017-02-18] MEDS: carBAMazepine 200 MG TABLET PO SCH (08:38)
[2017-02-18] MEDS: Budesonide Neb 0.5 MG/2 ML IH SCH (09:04)
[2017-02-18 11:49] VITALS: BP 129/47
--- NOTE | 2017-02-18 14:55 | Event Note ---
Date of Encounter: 02/18/17 Time of Encounter: 14:50 Evaluated at bedside 86 F with MRDD, resident of SNF admitted for management of sepsis secondary to aspiration PNA, UTI, Paralytic ileus with colonic distension, Hypoxic respiratory failure secondary to pneumonia patient is stable for discharge once home O2 has been set up She is at her baseline mental status, chest is clear, HS S1, S2 only, extremities no edema, with contractures Vitals are stable Cleared for discharge when O2 is set up Rest of details as in d/c summary done 02/17
== END 2017-02-18 15:28 | DRG 871 ==
LOC: EMEROO 07:19 → 2ANU 07:19 → SUATTDRO 10:24
PROVIDERS: ADMIT Internal Medicine; ATTEND Internal Medicine

== ENCOUNTER 2017-03-16 11:19 | Inpatient (IN) ==
--- NOTE | 2017-03-16 11:28 | Emergency Department Note ---
Disposition Clinical Impression: Generalized weakness, Ileus Failure to thrive Qualifiers: Failure to thrive age range: in adult Qualified Code(s): R62.7 - Adult failure to thrive Disposition: Admitted As Inpatient Condition: Fair Referrals: NO,PCP [Primary Care Provider] - Forms: ED Satisfaction Letter Time of Disposition: 16:52 Weakness HPI - General Chief complaint: ED Weakness Stated complaint: weakness Time Seen by Provider: 03/16/17 11:25 Source: EMS Mode of arrival: EMS Limitations: no limitations Nursing Notes Reviewed: Yes Vital Signs Reviewed: Yes - History of Present Illness HPI Narrative: The squad indicates patient has generalized weakness. Patient is nonverbal. She apparently was seen here for similar complaints a couple days ago. Pt Subjective Complaint: generalized weakness/fatigue Onset (ago): day(s) Pain Scale: 0 - Related Data Home Medications Medication Instructions Recorded Confirmed Budesonide Neb [Pulmicort Neb] 0.5 mg IH BIDR 04/29/16 02/12/17 Calcium Carbonate/Vitamin D3 1 tab PO BID 04/29/16 02/12/17 [[place] 500-Vit D3 200 Tb] Famotidine [Pepcid] 20 mg PO HS 04/29/16 02/12/17 Ferrous Sulfate [Iron Supplement] 325 mg PO BID 04/29/16 02/12/17 Multivit-Min/FA/Lycopen/Lutein 1 tab PO DAILY 04/29/16 02/12/17 [Certavite Sr-Antioxidant Tab] OLANZapine [Zyprexa Zydis] 10 mg PO HS 04/29/16 02/12/17 Raloxifene [Evista] 60 mg PO DAILY 04/29/16 02/12/17 carBAMazepine [Tegretol] 200 mg PO BID 04/29/16 02/12/17 carBAMazepine [Tegretol] 400 mg PO HS 04/29/16 02/12/17 Mirtazapine [Remeron] 15 mg PO HS 02/12/17 02/12/17 Previous Rx's Medication Instructions Recorded Amoxicillin/Clavulanate [Augmentin] 875 mg PO BIDWM #10 tablet 02/17/17 FentaNYL PATCH [Duragesic] 25 mcg TD Q72H #5 patch.td72 02/17/17 HYDROcodone/Acet 10/325 mg [[place] 1 tab PO DAILY #10 tablet 02/17/17 10-325 mg] Allergies Allergy/AdvReac Type Severity Reaction Status Date / Time tb skin test Allergy See Uncoded 05/30/16 08:08 Comments Limitations: ROS unobtainable due to patients medical condition Past Medical History - Past Medical History Medical history: Reports: GERD, osteoporosis, other Surgical history: Reports: colostomy (Ms. Smith's caregivers report she had a colostomy years ago for unknown reason and it was reversed. ) Psychiatric history: Reports: schizophrenia - Social History Smoking Status: Unknown if ever smoked Smokeless Tobacco Status: No Alcohol use: Reports: unknown Drug use: Reports: unknown Physical Exam - General Limitations: no limitations General appearance: other - Head Head exam: atraumatic, normocephalic, normal inspection - Eye Eye exam: Present: normal appearance, PERRL, EOMI - ENT ENT exam: normal exam, normal oropharynx, mucous membranes moist - Neck Neck exam: Present: normal inspection, full ROM, trachea midline - Chest Chest inspection: Present: normal inspection, symmetric chest wall rise - Respiratory Respiratory exam: Present: normal lung sounds bilaterally - Cardiovascular Cardiovascular exam: Present: regular rate, normal rhythm, normal heart sounds - Abdominal Exam Abdominal exam: Present: soft, Non-Tender. Absent: tenderness, distention, guarding, rebound, rigidity - Extremities Exam Extremities exam: Present: normal inspection, full ROM. Absent: tenderness, pedal edema - Expanded Lower Extremity Exam Neurovascular/Tendon exam: Absent: motor deficit, sensory deficit, tendon deficit Gait: not tested/not observed - Back Exam Back exam: Present: normal inspection, full ROM. Absent: tenderness - Neurological Exam Neurological exam: Present: alert - Psychiatric Psychiatric exam: Present: normal affect - Skin Skin exam: Present: warm, dry, intact, normal color Course - Reevaluation(s) Reevaluation #1: A worker from the longterm came in and informed us that the reason the patient was sent and was she's not able to swallow was able swallow yesterday we 'll take her pills. Time: 13:47 Reevaluation #2: Additional information was obtained from the caregivers the patient's not eating or drinking. Patient not able to eat or drink. We will admit patient for further evaluation may need ECF placement Time: 16:53 - Consultations Consultation #1: Discussed with , admit. Time: 16:51 Vital Signs Temperature 97.7 F 05/20/17 11:21 Pulse Rate 82 03/16/17 11:21 Respiratory Rate 18 03/16/17 11:21 Blood Pressure 124/93 03/16/17 11:21 O2 Sat by Pulse Oximetry 97 03/16/17 11:21 Temperature 97.7 F 03/16/17 11:21 Pulse Rate 83 03/16/17 13:21 Respiratory Rate 18 03/16/17 13:21 Blood Pressure 131/72 03/16/17 13:21 O2 Sat by Pulse Oximetry 97 03/16/17 13:21 Oxygen Delivery Oxygen Delivery Room Air Weakness - Lab Data Lab results reviewed: Yes I reviewed the patient's lab results. Result diagrams: 03/16/17 11:51 03/16/17 11:51 Lab Results 03/16/17 03/16/17 03/16/17 Range/Units 11:51 11:51 11:51 WBC 6.5 (4.3-11.1) K/mcL RBC 3.79 L (3.82-4.97) M/mcL Hgb 11.6 (11.5-15.4) g/dL Hct 37.1 (35.3-44.9) % MCV 97.9 (83.0-100.0) fL MCH 30.6 (28.0-33.3) pg MCHC 31.3 L (31.6-35.5) g/dL RDW 12.5 (11.5-14.5) % Plt Count 218 (140-400) K/mcL MPV 10.2 (9.4-12.4) fL Immature Gran % 0.2 (0-4) % Seg Neutrophils % 60.5 % Lymphocytes % 25.7 % Monocytes % 9.3 % Eosinophils % 3.7 % Basophils % 0.6 % Neutrophils # 3.9 (1.6-8.9) K/mcL Lymphocytes # 1.7 (0.6-4.6) K/mcL Monocytes # 0.6 (0.0-1.3) K/mcL Eosinophils # 0.2 (0.0-0.6) K/mcL Basophils # 0.0 (0.0-0.2) K/mcL Sodium 147 H (136-145) mEq/L Potassium 4.3 (3.5-4.5) mEq/L Chloride 113 H (98-109) mEq/L Carbon Dioxide 25 (19-29) mEq/L BUN 58 H (7-20) mg/dL Creatinine 0.78 (0.57-1.11) mg/dL Est GFR ( Amer) > 60 (> 60) Est GFR (Non-Af Amer) > 60 (> 60) BUN/Creatinine Ratio 74 H (6-26) Glucose 96 (70-99) mg/dL Calculated Osmolality 320 H (280-300) Calcium 8.1 L (8.6-10.8) mg/dL Troponin I 0.02 (0-0.03) ng/mL Urine Color (Yellow) Urine Clarity (Clear) Urine pH (5.0-8.0) pH Units Ur Specific [place] (1.010-1.025) Urine Protein (Neg-Trace) mg/dL Urine Glucose (UA) (Normal) mg/dL Urine Ketones (Negative) mg/dL Urine Blood (Negative) Urine Nitrite (Negative) Urine Bilirubin (Negative) Urine Urobilinogen (Normal) mg/dL Ur Leukocyte Esterase (Negative) Urine Microscopic RBC (0-3) per hpf Urine Microscopic WBC (0-3) per hpf Ur Squamous Epith Cells (None-Few) per lpf Urine Bacteria (None-Few) per hpf Hyaline Casts (None-Few) per lpf Ur Culture Indicated? (NO) 03/16/17 Range/Units 13:06 WBC (4.3-11.1) K/mcL RBC (3.82-4.97) M/mcL Hgb (11.5-15.4) g/dL Hct (35.3-44.9) % MCV (83.0-100.0) fL MCH (28.0-33.3) pg MCHC (31.6-35.5) g/dL RDW (11.5-14.5) % Plt Count (140-400) K/mcL MPV (9.4-12.4) fL Immature Gran % (0-4) % Seg Neutrophils % % Lymphocytes % % Monocytes % % Eosinophils % % Basophils % % Neutrophils # (1.6-8.9) K/mcL Lymphocytes # (0.6-4.6) K/mcL Monocytes # (0.0-1.3) K/mcL Eosinophils # (0.0-0.6) K/mcL Basophils # (0.0-0.2) K/mcL Sodium (136-145) mEq/L Potassium (3.5-4.5) mEq/L Chloride (98-109) mEq/L Carbon Dioxide (19-29) mEq/L BUN (7-20) mg/dL Creatinine (0.57-1.11) mg/dL Est GFR ( Amer) (> 60) Est GFR (Non-Af Amer) (> 60) BUN/Creatinine Ratio (6-26) Glucose (70-99) mg/dL Calculated Osmolality (280-300) Calcium (8.6-10.8) mg/dL Troponin I (0-0.03) ng/mL Urine Color Yellow (Yellow) Urine Clarity Clear (Clear) Urine pH 6.0 (5.0-8.0) pH Units Ur Specific [place] 1.022 (1.010-1.025) Urine Protein Negative (Neg-Trace) mg/dL Urine Glucose (UA) Normal (Normal) mg/dL Urine Ketones Negative (Negative) mg/dL Urine Blood Negative (Negative) Urine Nitrite Positive A (Negative) Urine Bilirubin Negative (Negative) Urine Urobilinogen Normal (Normal) mg/dL Ur Leukocyte Esterase Small H (Negative) Urine Microscopic RBC 0-3 (0-3) per hpf Urine Microscopic WBC 3-5 H (0-3) per hpf Ur Squamous Epith Cells Many H (None-Few) per lpf Urine Bacteria Many H (None-Few) per hpf Hyaline Casts None Seen (None-Few) per lpf Ur Culture Indicated? YES A (NO) - Radiology Data Radiology results reviewed: Yes I reviewed the patient's radiology results. Chest X-Ray 03/16/17 11:26 IMPRESSION: Stable portable study. D/ / Geetha Cervantes Cha, MD / Geetha Cervantes Cha, MD Interpreting Provider: Geetha Cervantes Cha, MD Head CT 03/16/17 13:50 IMPRESSION: No acute intracranial abnormality. If acute cerebral infarct is a clinical concern, an MRI is a more sensitive study. D/ / Geetha Cervantes Cha, MD / Geetha Cervantes Cha, MD Interpreting Provider: Geetha Cervantes Cha, MD Abdomen/Pelvis CT 03/16/17 14:54 IMPRESSION: Persistent severe chronic colorectal distension with significant stool load, similar in appearance to the prior examination. Findings again favor chronic colon ileus. Fecal impaction at the rectum. Bibasilar atelectasis or pneumonitis. D/ / Kurtis Sanchez MD / Kurtis Sanchez MD Interpreting Provider: Kurtis Sanchez MD - EKG Data EKG attestation: Yes I reviewed and interpreted this EKG. EKG shows normal: sinus rhythm Rate: normal Rhythm: NSR Interpretation: no acute changes
[2017-03-16 11:58] LABS: Basophils % 0.6 %; Eosinophils # 0.2 K/mcL (0.0-0.6); Eosinophils % 3.7 %; Hematocrit 37.1 % (35.3-44.9); Hemoglobin 11.6 g/dL (11.5-15.4); Immature Granulocytes % 0.2 % (0-4); Lymphocytes # 1.7 K/mcL (0.6-4.6); Lymphocytes % 25.7 %; Mean Corpuscular HGB Conc 31.3 g/dL (31.6-35.5); Mean Corpuscular Hemoglobin 30.6 pg (28.0-33.3); Mean Corpuscular Volume 97.9 fL (83.0-100.0); Mean Platelet Volume 10.2 fL (9.4-12.4); Monocytes # 0.6 K/mcL (0.0-1.3); Monocytes % 9.3 %; Neutrophils # 3.9 K/mcL (1.6-8.9); Platelet Count 218 K/mcL (140-400); Red Blood Count 3.79 M/mcL (3.82-4.97); Red Cell Distribution Width 12.5 % (11.5-14.5); Segmented Neutrophils % 60.5 %
[2017-03-16 12:10] LABS: BUN/Creatinine Ratio 74 (6-26); Blood Urea Nitrogen 58 mg/dL (7-20); Calcium 8.1 mg/dL (8.6-10.8); Carbon Dioxide 25 mEq/L (19-29); Chloride 113 mEq/L (98-109); Glucose 96 mg/dL (70-99); Osmolality,Calculated 320 (280-300); Potassium 4.3 mEq/L (3.5-4.5); Sodium 147 mEq/L (136-145); eGFR For African Americans > 60 (> 60); eGFR For Non-African Americans > 60 (> 60)
[2017-03-16 13:14] LABS: Bilirubin,Urine Negative (Negative); Blood,Urine Negative (Negative); Clarity,Urine Clear (Clear); Color,Urine Yellow (Yellow); Glucose,Urine (UA) Normal (Normal); Ketones,Urine Negative (Negative); Leukocyte Esterase,Urine Small (Negative); Nitrite,Urine Positive (Negative); Protein,Urine Negative (Neg-Trace); Specific Gravity,Urine 1.022 (1.010-1.025); Urobilinogen,Urine Normal (Normal)
[2017-03-16 13:15] LABS: Bacteria,Urine Many per hpf (None-Few); Hyaline Casts,Urine None Seen per lpf (None-Few); RBC,Urine 0-3 per hpf (0-3); Squamous Epithelial Cell,Urine Many per lpf (None-Few)
[2017-03-16] MEDS ORDERED: Naloxone 0.4 MG/ML INJ IVP PRN (16:50)
[2017-03-16] MEDS ORDERED: Ondansetron 4 MG/2 ML VIAL IVP PRN (16:50)
[2017-03-16] MEDS ORDERED: Lactulose 200 GM, Sodium Chloride IRRigation 700 ML RC ONE (16:52)
[2017-03-16] MEDS ORDERED: 0.9 % Sodium Chloride 1,000 ML IVC SCH (17:30)
--- NOTE | 2017-03-16 20:02 | Internal Med History&Physical ---
Date of Encounter: 03/16/17 Time of Encounter: 18:30 Assessment and Plan (1) Constipation Current visit: No Status: Acute Assess: Patient presents with chronic history of constipation and ileus. CT of the abdomen/pelvis done today (03/16/17), shows persistent severe chronic colorectal distention with significant stool load, similar in appearance to the prior examination. Findings again favor chronic colon ileus. Fecal impaction at the rectum. Plan: NPO diet ordered NOW Lactulose 200 gm ONCE ordered Enema administration to follow lactulose in the evening U/A ordered Monitor patient's I&O Qualifiers: Constipation type: unspecified constipation type Qualified Code(s): K59.00 - Constipation, unspecified (2) Ileus Current visit: Yes Status: Acute Assess: Patient presents with chronic history of constipation and ileus. CT of the abdomen/pelvis done today (03/16/17), shows persistent severe chronic colorectal distention with significant stool load, similar in appearance to the prior examination. Findings again favor chronic colon ileus. Fecal impaction at the rectum. Plan: NPO diet ordered NOW Lactulose 200 gm ONCE ordered Enema administration to follow lactulose in the evening U/A ordered Monitor patient's I&O (3) Dehydration Current visit: Yes Status: Acute Assess: Patient presents with chronic history of dehydration similar to previous admission of 02/12/17. Plan: D5 0.45% NaCl 100 mls/hr ordered due to patient's current hypernatremia status Follow-up labs ordered to monitor patient's electrolyte levels Monitor patient's I&O (4) Hypernatremia Current visit: Yes Status: Acute Assess: Patient present with acute hypernatremia. Plan: Administer D5 0.45% NaCl 100 mls/hr ordered due to patient's current hypernatremia status Monitor patient's follow-up sodium levels on 03/17/17 (5) DVT prophylaxis Current visit: Yes Status: Acute Assess: Patient to be placed on DVT prophylaxis due to bed rest status and history of abnormal EKGs. Plan: Heparin 5,000 units SQ Q8 ordered Internal Medicine - H&P: HPI Chief complaint: Anorexia/Inability to swallow Admitted From: Emergency Dept Plans for Post Hospital Care: Transfer Other ([facility]) History of present illness: Ms. Smith is a 87 year old female who presents from the ED with the chief complaint of not eating or drinking as well as an inability to swallow. Patient was seen one month ago on 02/12/17 for similar complaints of anoerxia and ileus. [facility]givers [facility] report that Ms. Smith is not eating or drinking and is unable to swallow over the past 24 hours. These caregivers also report that the patient was able to take her oral medications 24 hours ago but is now unable to. CT of the abdomen and pelvis performed today (03/16/17) shows persistent severe chronic colorectal distension with significant stool load, similar in appearance to the prior examination. Findings again favor chronic colon ileus. Fecal impaction at the rectum. Bibasilar atelectasis or pneumonitis. Patient is to be placed as inpatient status. Patient is also to be placed NPO status until an ordered bedside swallow evaluation can be completed. Patient's home medications have been reconciled but administration will be contingent upon the results of the ordered bedside swallow evaluation. Patient received lactulose which resulted in a watery bowel movement. This will be followed by a rectal enema later this evening. Patient currently appears dehydrated and will receive D5 0.45 NS via IV due to her current hypernatremia status (Sodium = 147). Patient will also be placed on cardiac telemetry. Patient's I&O to be monitored. Past Med Surg Social Fam HX - Past Medical History Medical history: COPD, GERD, osteoporosis, other Psychiatric history: schizophrenia - Past Surgical History Surgical History: colostomy - Social History Smoking Status: Unknown if ever smoked Smokeless Tobacco Status: No Alcohol use: unknown Drug use: unknown Current living situation: [facility] Activity Level: Wheelchair bound Recent Out of Country Travel Within the Last 8 Weeks: No Exposure or Possible Exposure to Illness During Travel: No - Family History Mother Family Member Ethnicity: Non- Living Status: Father Family Member Ethnicity: Non- Living Status: Brother Family Member Ethnicity: Non- Living Status: Still Living Sister Family Member Ethnicity: Non- Living Status: Still Living Internal Medicine - H&P: Meds Budesonide Neb [Pulmicort Neb] 0.5 mg IH BIDR 04/29/16 [History] Calcium Carbonate/Vitamin D3 [Oyster Shell 500-Vit D3 200 Tb] 1 tab PO BID 04/29 [History] Famotidine [Pepcid] 20 mg PO HS 04/29/16 [History] Ferrous Sulfate [Iron Supplement] 325 mg PO BID 04/29/16 [History] Multivit-Min/FA/Lycopen/Lutein [Certavite Sr-Antioxidant Tab] 1 tab PO DAILY 01/10 [History] OLANZapine [Zyprexa Zydis] 10 mg PO HS 04/29/16 [History] Raloxifene [Evista] 60 mg PO DAILY 04/29/16 [History] carBAMazepine [Tegretol] 200 mg PO BID 04/29/16 [History] carBAMazepine [Tegretol] 400 mg PO HS 04/29/16 [History] Mirtazapine [Remeron] 22.5 mg PO HS 02/12/17 [History] FentaNYL PATCH [Duragesic] 25 mcg TD Q72H #5 patch.td72 02/17/17 [Rx] HYDROcodone/Acet 10/325 mg [[place] 10-325 mg] 1 tab PO DAILY #10 tablet 02/17/17 [Rx] Eszopiclone [Lunesta] 3 mg PO HS 03/16/17 [History] Ipratropium/Albuterol Neb [Duoneb] 3 ml IH Q6HR 03/16/17 [History] Allergies tb skin test Allergy (Uncoded 05/30/16 08:08) See Comments ROS unobtainable: due to mental status (Patient's H&P was obtained from earlier H&P records due to patient being unable to verbalize or communicate clearly and as there were no caregivers present during examination. Patient was seen by me one month earlier on 02/12/17 with the same baseline dysphagia.) All Systems PM: A 10-system review of systems was performed and is negative for pertinent findings except as documented above in the HPI. - Constitutional Vitals: Temp Pulse Resp BP Pulse Ox 97.6 F 75 14 120/80 98 03/16/17 18:28 03/16/17 18:28 03/16/17 18:28 03/16/17 18:28 03/16/17 18:28 General appearance: Present: A&O X 0, no acute distress - Head Head exam: Present: atraumatic, normocephalic - Eye Eye exam: Present: normal appearance - ENT ENT exam: Present: mucous membranes dry (Patient appears to be dehydrated and has furrowing of the tongue as well as dry mucous membranes similar to previous visit on 02/12/17.), normal exam, normal external ear exam - Neck Neck exam general surgery: Present: supple, trachea midline - Respiratory Respiratory exam: Present: CTAB. Absent: accessory muscle use, rales, rhonchi, wheezes - Cardiovascular Cardiovascular exam: Present: RRR, +S1, +S2. Absent: diastolic murmur, gallop, rubs, systolic murmur - GI/Abdominal GI/Abdominal exam: Present: hypoactive bowel sounds (Patient has hypoactive bowel sounds on examination.) - Rectal Rectal exam: Present: deferred - Additional comments: exam deferred. - Extremities Exam Extremities exam: Present: normal capillary refill, radial pulses palpable and symetrical - Back Exam Back exam: Present: normal inspection - Neurological Exam Neurological exam: Present: altered, speech deficit - Skin Skin exam: Present: dry, excoriation (Several excoriations noted on patient's arms upon examination.) Internal Med - H&P Results - Labs CBC & Chem 7: 03/16/17 11:51 03/16/17 11:51 - EKG Data EKG shows normal: sinus rhythm - EKG Data Prior EKG available for review: yes When compared to previous EKG: there is no significant change EKG comments: 03/16/17 20:11 EKG dated 02/12/17 shows sinus rhythm with first degree AV block, marked left axis deviation, and incomplete right bundle branch block. EKG dated 03/16/17 shows sinus rhythm with minimal ST depression [0.025+ mV ST depression] - Diagnostic Studies Chest x-ray Additional comments: 1-View CXR dated 03/16/17 shows there is a stable elevation of the right hemidiaphragm. No acute bony prominences of the glenohumeral joints. The heart size and mediastinal contours are stable. The lungs are clear. There is mild gaseous distention of the visualized colon. CT scan - abdomen Additional comments: CT of the abdomen/pelvis without contrast dated 03/16/17 shows persistent severe chronic colorectal distension with significant stool load, similar in appearance to the prior examination. Findings again favor chronic colon ileus. Fecal impaction at the rectum. Bibasilar atelectasis or pneumonitis. CT scan - head Additional comments: CT of the head without contrast dated 03/16/17 shows there is no acute intracranial hemorrhage, mass effect of midline shift. No abnormal extra-axial fluid collection. The moser-white differentiation is maintained without evidence of an acute infarct. There is no evidence of hydrocephalus. There is prominence of the extra-axial spaces compatible as central atrophy. Chronic white matter disease is suspected. The visualized portion of the orbits demonstrate no acute abnormality. The visualized paranasal sinuses and mastoid air cells demonstrate no acute abnormality. Overall impression: No acute intracranial abnormality.
[2017-03-16] MEDS: Ipratropium/Albuterol Neb 3 ML IH SCH (21:00)
[2017-03-16] MEDS: Budesonide Neb 0.5 MG/2 ML IH SCH (21:00)
[2017-03-16] MEDS: D5% in 0.45% NACL 1,000 ML IVC SCH (21:08)
[2017-03-16] MEDS: Mirtazapine 15 MG TABLET PO SCH (21:11)
[2017-03-16] MEDS: Famotidine 20 MG TABLET PO SCH (21:11)
[2017-03-16] MEDS: OLANZapine 10 MG TAB.RAPDIS PO SCH (21:12)
[2017-03-16] MEDS: carBAMazepine 200 MG TABLET PO SCH ×2 (21:12)
[2017-03-16] MEDS: *HR* LORazepam 2 MG/ML VIAL IVP PRN (22:10)
--- NOTE | 2017-03-16 22:27 | Event Note ---
Date of Encounter: 03/16/17 Time of Encounter: 21:45 Patient seen and evaluated along with nurse practitioner. Agree with nurse practitioner's detailed H&P except to the extreme set forth below. 87-year-old female with history of MRDD, schizophrenia, chronic constipation and ileus, was brought in by detention with complaints of poor oral intake for the last 2 days associated with constipation and dysphagia. Patient is unable to provide any history due to underlying MRDD. History is obtained from review of previous medical records and emergency room notes. Patient seen and examined. Thin built and cachectic, lying in bed, bilateral lower extremity atrophy. Chest-S1, S2 heard. Lungs are clear to auscultation. Abdomen is soft and nontender. Labs reviewed-elevated serum sodium at 147, chloride 113. CT abdomen/pelvis shows significant stool load with colonic distention and fecal impaction in the rectum. No obstruction. Acute on chronic constipation, fecal impaction, ileus-patient received a dose of lactulose and lactulose enema, currently noted to have loose bowel movements. Continue to monitor. Patient will need to be on high fiber diet along with daily scheduled laxatives and stool softeners at home. Hypernatremia due to dehydration and poor oral intake-freewater deficit noted to be 0.8 L. Start D5 half normal saline and continue to monitor serum sodium. Dysphagia-noted to have failed bedside swallow evaluation today. Patient did present with similar complaints during recent admission when she underwent modified barium swallow study, which was noted to be normal and she was cleared by speech therapy for pureed diet with assisted feeds. I doubt anatomic abnormality/obstruction. Patient may have been refusing feeds due to constipation and abdominal discomfort. Hold oral medications until speech therapy evaluation in a.m.
[2017-03-16] MEDS: *HR* Heparin 5,000 UNIT/ML VIAL SQ SCH (23:49)
[2017-03-17] MEDS: Ipratropium/Albuterol Neb 3 ML IH SCH ×4 (04:47→21:22)
[2017-03-17 05:07] LABS: Alanine Aminotransferase 15 Units/L (0-55); Albumin 2.3 g/dL (3.5-5.0); Albumin/Globulin Ratio 0.8 (1.1-2.2); Alkaline Phosphatase 80 Units/L (38-126); Aspartate Amino Transferase 18 Units/L (5-34); BUN/Creatinine Ratio 52 (6-26); Bilirubin,Total 0.3 mg/dL (0.2-1.2); Calcium 7.6 mg/dL (8.6-10.8); Carbon Dioxide 25 mEq/L (19-29); Chloride 115 mEq/L (98-109); Glucose 95 mg/dL (70-99); Osmolality,Calculated 311 (280-300); Potassium 3.5 mEq/L (3.5-4.5); Sodium 147 mEq/L (136-145); Total Protein 5.3 g/dL (6.0-8.3); eGFR For African Americans > 60 (> 60); eGFR For Non-African Americans > 60 (> 60)
[2017-03-17 05:09] LABS: Blood Urea Nitrogen 34 mg/dL (7-20)
[2017-03-17] MEDS: D5% in 0.45% NACL 1,000 ML IVC SCH ×2 (07:00→17:32)
[2017-03-17] MEDS: Cholecalciferol (D-3) 1,000 UNIT TABLET PO SCH (07:22)
[2017-03-17] MEDS: carBAMazepine 200 MG TABLET PO SCH ×3 (07:22→21:09)
[2017-03-17] MEDS: Multivit/Ca/Min/Fe/FA 1 TAB TABLET PO SCH (07:22)
[2017-03-17] MEDS: *HR* Heparin 5,000 UNIT/ML VIAL SQ SCH ×3 (07:57→23:00)
[2017-03-17] MEDS: Budesonide Neb 0.5 MG/2 ML IH SCH ×2 (10:51→21:22)
--- NOTE | 2017-03-17 10:56 | Internal Med Progress Note ---
Date of Encounter: 03/17/17 Time of Encounter: 10:54 - Assessment and plan (1) DVT prophylaxis Current Visit: Yes Status: Acute Assessment and plan: We will use subcutaneous heparin. (2) Ileus Current Visit: Yes Status: Acute Assessment and plan: Avoid opiates medication. (3) Constipation Current Visit: No Status: Acute Assessment and plan: Patient had a good-sized bowel movement today. Continue with lactulose enema as needed. Start stool softener. Speech and swallow evaluation tomorrow prior to resuming oral intake. Continue with IV fluids for hydration. 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 Continue with Depakote per her home dose for seizure prophylaxis. - Subjective Interval history: 03/17/2017:he patient cannot provide any istory due to severe developmental delay , nonverbal state. She was admitted yesterday due to constipation and abdominal Pain. - Constitutional Vitals: Temp Pulse Resp BP Pulse Ox 99.5 F 71 12 133/65 93 03/17/17 07:19 03/17/17 07:19 03/17/17 07:19 03/17/17 07:19 03/17/17 07:19 General appearance: Present: A&O X 0, no acute distress - Respiratory Respiratory exam: Present: CTAB. Absent: accessory muscle use, rales, rhonchi, wheezes - Cardiovascular Cardiovascular exam: Present: RRR, +S1, +S2. Absent: diastolic murmur, gallop, rubs, systolic murmur - GI/Abdominal GI/Abdominal exam: Present: normal bowel sounds, soft, no peritoneal signs. Absent: distended, tenderness Additional comments: here is a large amount of dark brown stool in the diaper - Extremities Exam Extremities exam: Present: warm, radial pulses palpable and symetrical. Absent : calf tenderness, cyanotic, pedal edema - Skin Skin exam: Present: dry, intact Internal Medicine: Result - Labs CBC & Chem 7: 03/16/17 11:51 03/17/17 04:05 Labs: BMP 03/17/17 04:05 Sodium 147 H Potassium 3.5 Chloride 115 H Carbon Dioxide 25 BUN 34 H D Creatinine 0.66 Glucose 95 Calcium 7.6 L Liver Function 03/17/17 Range/Units 04:05 Total Bilirubin 0.3 (0.2-1.2) mg/dL AST 18 (5-34) Units/L ALT 15 (0-55) Units/L Alkaline Phosphatase 80 (38-126) Units/L Albumin 2.3 L (3.5-5.0) g/dL Consult Discharge Plan - Plan Referrals: Dawit Baez MD [Primary Care Provider] -
[2017-03-17] MEDS: *HR* LORazepam 2 MG/ML VIAL IVP PRN ×2 (12:08→22:57)
--- NOTE | 2017-03-17 20:16 | Electrocardiograph Report ---
[address] [address] Test Date: 2017-03-16 Pat Name: Cheyenne Smith Department: 102 Room: 3A Gender: F Hospital Insurance Representative: : [id number] Requested By: Jarad Marc Order Number: [id number] Reading MD: Yony Headley MD Measurements Intervals [place] Rate: 75 P: 67 GA: 207 QRS: -5 QRSD: 97 T: 31 QT: 377 QTc: 406 Interpretive Statements SINUS RHYTHM Electronically Signed On 03-17-2017 20:14:21 EDT by Yony Headley MD
[2017-03-17] MEDS: Mirtazapine 15 MG TABLET PO SCH (21:08)
[2017-03-17] MEDS: Famotidine 20 MG TABLET PO SCH (21:08)
[2017-03-17] MEDS: OLANZapine 10 MG TAB.RAPDIS PO SCH (21:09)
[2017-03-18] MEDS: D5% in 0.45% NACL 1,000 ML IVC SCH (03:11)
[2017-03-18] MEDS: Ipratropium/Albuterol Neb 3 ML IH SCH ×4 (03:53→21:09)
[2017-03-18] MEDS: *HR* LORazepam 2 MG/ML VIAL IVP PRN (04:46)
[2017-03-18 06:07] LABS: Basophils % 0.3 %; Eosinophils # 0.1 K/mcL (0.0-0.6); Eosinophils % 1.7 %; Hematocrit 33.9 % (35.3-44.9); Hemoglobin 10.9 g/dL (11.5-15.4); Immature Granulocytes % 0.2 % (0-4); Lymphocytes # 2.1 K/mcL (0.6-4.6); Lymphocytes % 35.9 %; Mean Corpuscular HGB Conc 32.2 g/dL (31.6-35.5); Mean Corpuscular Hemoglobin 30.3 pg (28.0-33.3); Mean Corpuscular Volume 94.2 fL (83.0-100.0); Mean Platelet Volume 10.8 fL (9.4-12.4); Monocytes # 0.4 K/mcL (0.0-1.3); Monocytes % 6.7 %; Neutrophils # 3.2 K/mcL (1.6-8.9); Platelet Count 226 K/mcL (140-400); Red Cell Distribution Width 12.2 % (11.5-14.5); Segmented Neutrophils % 55.2 %
[2017-03-18 06:20] LABS: BUN/Creatinine Ratio 21 (6-26); Blood Urea Nitrogen 12 mg/dL (7-20); Calcium 7.6 mg/dL (8.6-10.8); Carbon Dioxide 23 mEq/L (19-29); Chloride 115 mEq/L (98-109); Glucose 104 mg/dL (70-99); Osmolality,Calculated 298 (280-300); Potassium 3.1 mEq/L (3.5-4.5); Sodium 144 mEq/L (136-145); eGFR For African Americans > 60 (> 60); eGFR For Non-African Americans > 60 (> 60)
[2017-03-18] MEDS ORDERED: *HR* LORazepam 2 MG/ML VIAL IVP ONE (07:04)
[2017-03-18] MEDS: Multivit/Ca/Min/Fe/FA 1 TAB TABLET PO SCH ×2 (07:41→10:38)
[2017-03-18] MEDS: Cholecalciferol (D-3) 1,000 UNIT TABLET PO SCH ×2 (07:41→10:39)
[2017-03-18] MEDS: carBAMazepine 200 MG TABLET PO SCH ×4 (07:41→20:35)
[2017-03-18] MEDS ORDERED: Potassium Chloride Elixir 20 MEQ/15 ML UDC PO ONE (08:32)
--- NOTE | 2017-03-18 08:34 | Internal Med Progress Note ---
Date of Encounter: 03/18/17 Time of Encounter: 08:33 - Assessment and plan (1) DVT prophylaxis Current Visit: Yes Status: Acute Assessment and plan: We will use subcutaneous heparin. (2) Ileus Current Visit: Yes Status: Acute Assessment and plan: Avoid opiate medication. (3) Constipation Current Visit: No Status: Acute Assessment and plan: 03/18/2017: Per medical record there are multiple bowel movements documented. Her belly is soft and nontender. We will start diet and monitor input and output. We will obtain a repeat KUB tomorrow. 03/17/2017: Patient had a good-sized bowel movement today. Continue with lactulose enema as needed. Start stool softener. Speech and swallow evaluation tomorrow prior to resuming oral intake. Continue with IV fluids for hydration. 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 Continue with Depakote per her home dose for seizure prophylaxis. (5) Hypokalemia Current Visit: Yes Status: Acute Assessment and plan: We will replete with oral potassium. Check potassium and magnesium in the morning. (6) Dehydration Current Visit: Yes Status: Acute Assessment and plan: She received IV fluids for hydration. We will start oral intake. Discontinue IV fluids and encourage oral hydration. (7) UTI (urinary tract infection) Current Visit: No Status: Acute Assessment and plan: This is a new problem for today. UTI present on admission since initial UA was positive. Urinalysis positive for leukocyte esterase and nitrate. Urine culture positive for Escherichia coli. We will treat this with ceftriaxone. Qualifiers: Urinary tract infection type: site unspecified Hematuria presence: without hematuria Qualified Code(s): N39.0 - Urinary tract infection, site not specified - Subjective Interval history: 03/18/2017: Patient cannot provide history due to nonverbal state secondary to developmental delay. Per nursing notes patient had multiple bowel movements and the diaper over the last 24 hours. Per nursing notes patient was agitated earlier this morning then she calmed down without medical intervention. Patient passed swallow evaluation today and will be started on a diet. 03/17/2017:he patient cannot provide any istory due to severe developmental delay , nonverbal state. She was admitted yesterday due to constipation and abdominal Pain. - Constitutional Vitals: Temp Pulse Resp BP Pulse Ox 97.7 F 69 18 161/55 95 03/18/17 06:39 03/18/17 06:39 03/18/17 06:39 03/18/17 06:39 03/18/17 06:39 General appearance: Present: A&O X 0, no acute distress - Head Head exam: Present: atraumatic, normocephalic - Respiratory Respiratory exam: Present: decreased breath sounds (Shallow breathing), CTAB. Absent: accessory muscle use, rales, rhonchi, wheezes - Cardiovascular Cardiovascular exam: Present: RRR, +S1, +S2. Absent: diastolic murmur, gallop, rubs, systolic murmur - GI/Abdominal GI/Abdominal exam: Present: normal bowel sounds, soft, no peritoneal signs. Absent: distended, tenderness - Extremities Exam Extremities exam: Present: warm, radial pulses palpable and symetrical. Absent : calf tenderness, cyanotic, pedal edema Additional comments: Lower extremity muscle atrophy - Skin Skin exam: Present: dry, intact Internal Medicine: Result - Labs CBC & Chem 7: 03/18/17 05:05 03/18/17 05:05 Labs: Short CBC 03/18/17 Range/Units 05:05 WBC 5.8 (4.3-11.1) K/mcL Hgb 10.9 L (11.5-15.4) g/dL Hct 33.9 L (35.3-44.9) % Plt Count 226 (140-400) K/mcL Neutrophils # 3.2 (1.6-8.9) K/mcL BMP 03/18/17 05:05 Sodium 144 Potassium 3.1 L Chloride 115 H Carbon Dioxide 23 BUN 12 D Creatinine 0.56 L Glucose 104 H Calcium 7.6 L Consult Discharge Plan - Plan Referrals: Dawit Baez MD [Primary Care Provider] -
[2017-03-18] MEDS: Budesonide Neb 0.5 MG/2 ML IH SCH ×2 (10:36→21:09)
[2017-03-18] MEDS: *HR* Heparin 5,000 UNIT/ML VIAL SQ SCH (10:38)
[2017-03-18] MEDS ORDERED: Ferrous Sulfate Oral Soln 300 MG/5 ML UDC PO SCH (17:00)
[2017-03-18] MEDS: Famotidine 20 MG TABLET PO SCH (20:36)
[2017-03-18] MEDS: Mirtazapine 15 MG TABLET PO SCH (20:37)
[2017-03-19] MEDS: *HR* Heparin 5,000 UNIT/ML VIAL SQ SCH ×2 (00:52→08:30)
[2017-03-19] MEDS: OLANZapine 10 MG TAB.RAPDIS PO SCH (00:53)
[2017-03-19] MEDS: *HR* LORazepam 2 MG/ML VIAL IVP PRN (00:53)
[2017-03-19] MEDS: Acetaminophen 325 MG TABLET PO PRN ×2 (01:05→13:39)
[2017-03-19] MEDS: Ipratropium/Albuterol Neb 3 ML IH SCH ×2 (04:13→10:57)
[2017-03-19 06:06] LABS: Basophils % 0.3 %; Eosinophils # 0.1 K/mcL (0.0-0.6); Eosinophils % 1.1 %; Hematocrit 37.5 % (35.3-44.9); Hemoglobin 12.1 g/dL (11.5-15.4); Immature Granulocytes % 0.3 % (0-4); Lymphocytes # 1.8 K/mcL (0.6-4.6); Mean Corpuscular HGB Conc 32.3 g/dL (31.6-35.5); Mean Corpuscular Hemoglobin 30.8 pg (28.0-33.3); Mean Corpuscular Volume 95.4 fL (83.0-100.0); Mean Platelet Volume 10.3 fL (9.4-12.4); Monocytes # 0.7 K/mcL (0.0-1.3); Monocytes % 7.2 %; Platelet Count 264 K/mcL (140-400); Red Blood Count 3.93 M/mcL (3.82-4.97); Red Cell Distribution Width 12.4 % (11.5-14.5); Segmented Neutrophils % 72.1 %
[2017-03-19 06:15] LABS: BUN/Creatinine Ratio 25 (6-26); Blood Urea Nitrogen 17 mg/dL (7-20); Calcium 7.8 mg/dL (8.6-10.8); Carbon Dioxide 25 mEq/L (19-29); Chloride 114 mEq/L (98-109); Glucose 99 mg/dL (70-99); Magnesium 2.2 mg/dL (1.6-2.6); Osmolality,Calculated 300 (280-300); Potassium 3.7 mEq/L (3.5-4.5); Sodium 144 mEq/L (136-145); eGFR For African Americans > 60 (> 60); eGFR For Non-African Americans > 60 (> 60)
[2017-03-19] MEDS: Cholecalciferol (D-3) 1,000 UNIT TABLET PO SCH (08:29)
[2017-03-19] MEDS: Multivit/Ca/Min/Fe/FA 1 TAB TABLET PO SCH (08:29)
[2017-03-19] MEDS: carBAMazepine 200 MG TABLET PO SCH (08:29)
[2017-03-19 09:00] VITALS: BP 153/76
[2017-03-19] MEDS: Budesonide Neb 0.5 MG/2 ML IH SCH (10:57)
--- NOTE | 2017-03-19 11:46 | Discharge Summary ---
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 (4) Hypokalemia Priority: Secondary Status: Acute (5) Dehydration Priority: Secondary Status: Acute (6) UTI (urinary tract infection) Priority: Secondary Status: Acute Qualifiers: Urinary tract infection type: site unspecified Hematuria presence: without hematuria Qualified Code(s): N39.0 - Urinary tract infection, site not specified - Discharge Medications Prescriptions: Cefuroxime PO [Ceftin] 250 mg PO Q12HR #10 tablet FentaNYL PATCH [Duragesic] 12 mcg TD Q72H #7 patch.td72 Lactulose 200 gm .ROUTE DAILY PRN #600 g PRN Reason: Constipation Oxycodone HCl/Acetaminophen [Percocet 5-325 mg Tablet] 1 each PO BID #30 tablet Sennosides/Docusate Sodium [Senna Plus] 1 each PO DAILY #30 tablet Home Medications: Budesonide Neb [Pulmicort Neb] 0.5 mg IH BIDR 04/29/16 [History] Calcium Carbonate/Vitamin D3 [Oyster Shell 500-Vit D3 200 Tb] 1 tab PO BID 04/29 [History] Famotidine [Pepcid] 20 mg PO HS 04/29/16 [History] Ferrous Sulfate [Iron Supplement] 325 mg PO BID 04/29/16 [History] Multivit-Min/FA/Lycopen/Lutein [Certavite Sr-Antioxidant Tab] 1 tab PO DAILY 01/10 [History] OLANZapine [Zyprexa Zydis] 10 mg PO HS 04/29/16 [History] Raloxifene [Evista] 60 mg PO DAILY 04/29/16 [History] carBAMazepine [Tegretol] 200 mg PO BID 04/29/16 [History] carBAMazepine [Tegretol] 400 mg PO HS 04/29/16 [History] Mirtazapine [Remeron] 22.5 mg PO HS 02/12/17 [History] Eszopiclone [Lunesta] 3 mg PO HS 03/16/17 [History] Ipratropium/Albuterol Neb [Duoneb] 3 ml IH Q6HR 03/16/17 [History] Cefuroxime PO [Ceftin] 250 mg PO Q12HR #10 tablet 03/19/17 [Rx] FentaNYL PATCH [Duragesic] 12 mcg TD Q72H #7 patch.td72 03/19/17 [Rx] Lactulose 200 gm .ROUTE DAILY PRN #600 g 03/19/17 [Rx] Oxycodone HCl/Acetaminophen [Percocet 5-325 mg Tablet] 1 each PO BID #30 tablet 03/19/17 [Rx] Sennosides/Docusate Sodium [Senna Plus] 1 each PO DAILY #30 tablet 03/19/17 [Rx] Allergies/Adverse Reactions: Allergies tb skin test Allergy (Uncoded 05/30/16 08:08) See Comments Date of admission: 03/16/17 17:17 Primary care physician: Dawit Baez MD Consults: 03/16/17 20:12 Consult to Speech Therapy [CONS] Routine Comment: Evaluate, develop and implement POC Reason for Consult: pt failed swallow evalualtion Call Completed: No 03/16/17 21:55 Consult to Musical Therapist [CONS] Routine Reason for SW Consult: discharge planning 03/18/17 10:07 Consult to Physical Therapy [CONS] Routine Comment: Evaluate, develop and implement POC Reason for Consult: eval and treatment OT [Consult to Occupational Therapy] [CONS] Routine Comment: Evaluate, develop and implement POC Reason for Consult: eval and treatment - Patient Status Disposition: Transfer SNF Condition: Fair Functional capacity at discharge: bed bound Overall status at discharge: patient is progressing back to baseline - Discharge Instructions Follow Up With: Dawit Baez MD [Primary Care Provider] - - Diet and Activity Activity: as per physical therapy, increase activity as tolerated Diet: advance to your usual diet (Pureed diet with thin liquids) Hospital course: Ms. Smith is a 87 year old female with past medical history significant for intellectual disability, developmental delay, chronic [facility] resident who was brought to the hospital for evaluation of decreased oral intake. The caregivers at the [facility] reporting that the patient was not eating and drinking and not able to swallow for 1 day. Upon evaluation in the emergency department a CT of the abdomen and pelvis showed persistent severe chronic colorectal distinction with significant stool load similar in appearance to prior examination. There was fecal impaction at the rectum. The patient was admitted to the medical service. Her urinalysis was positive for leukocytes and white blood cells. Urine culture grew Escherichia coli. She was treated for UTI with ceftriaxone and will be transitioned to oral antibiotics. She received a lactulose enema with good results. Her rectal impaction had resolved. She had multiple bowel movements. It was noted that the patient had a fentanyl patch and received treatment with oxycodone at the [facility] which could have contributed to opiate-induced constipation. These have been discontinued and the patient moved her bowels multiple times during her hospitalization. On discharge I will resume fentanyl at half dose and we will prescribe a lower dose of Percocet only as needed for severe pain. I would advise to use of acetaminophen for mild to moderate pain. The patient was evaluated by speech and swallow therapist and the recommendation was for a pureed diet with thin liquids. The patient is progressing back to her baseline and is medically stable for discharge back to [facility]. She should follow-up with her primary care physician N1 to 2 weeks. - Time Spent with Patient Total time spent providing and/or coordinating discharge services: - Constitutional Vitals: Temp Pulse Resp BP Pulse Ox 98.2 F 76 14 153/76 95 03/19/17 08:59 03/19/17 08:59 03/19/17 11:00 03/19/17 08:59 03/19/17 11:00 General appearance: Present: A&O X 0, no acute distress - Respiratory Respiratory exam: Present: decreased breath sounds. Absent: accessory muscle use, rales, rhonchi, wheezes - Cardiovascular Cardiovascular exam: Present: RRR, +S1, +S2. Absent: diastolic murmur, gallop, rubs, systolic murmur - Extremities Exam Extremities exam: Present: warm, radial pulses palpable and symetrical. Absent : calf tenderness (Lower extremity muscle atrophy), cyanotic, pedal edema
--- NOTE | 2017-03-19 12:11 | Physician Discharge Referral ---
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 (4) Hypokalemia Priority: Secondary Status: Acute (5) Dehydration Priority: Secondary Status: Acute (6) UTI (urinary tract infection) Priority: Secondary Status: Acute - Transfer Medications Prescriptions: Cefuroxime PO [Ceftin] 250 mg PO Q12HR #10 tablet FentaNYL PATCH [Duragesic] 12 mcg TD Q72H #7 patch.td72 Lactulose 200 gm .ROUTE DAILY PRN #600 g PRN Reason: Constipation Oxycodone HCl/Acetaminophen [Percocet 5-325 mg Tablet] 1 each PO BID #30 tablet Sennosides/Docusate Sodium [Senna Plus] 1 each PO DAILY #30 tablet Home Medications: Budesonide Neb [Pulmicort Neb] 0.5 mg IH BIDR 04/29/16 [History] Calcium Carbonate/Vitamin D3 [Oyster Shell 500-Vit D3 200 Tb] 1 tab PO BID 04/29 [History] Famotidine [Pepcid] 20 mg PO HS 04/29/16 [History] Ferrous Sulfate [Iron Supplement] 325 mg PO BID 04/29/16 [History] Multivit-Min/FA/Lycopen/Lutein [Certavite Sr-Antioxidant Tab] 1 tab PO DAILY 01/10 [History] OLANZapine [Zyprexa Zydis] 10 mg PO HS 04/29/16 [History] Raloxifene [Evista] 60 mg PO DAILY 04/29/16 [History] carBAMazepine [Tegretol] 200 mg PO BID 04/29/16 [History] carBAMazepine [Tegretol] 400 mg PO HS 04/29/16 [History] Mirtazapine [Remeron] 22.5 mg PO HS 02/12/17 [History] Eszopiclone [Lunesta] 3 mg PO HS 03/16/17 [History] Ipratropium/Albuterol Neb [Duoneb] 3 ml IH Q6HR 03/16/17 [History] Cefuroxime PO [Ceftin] 250 mg PO Q12HR #10 tablet 03/19/17 [Rx] FentaNYL PATCH [Duragesic] 12 mcg TD Q72H #7 patch.td72 03/19/17 [Rx] Lactulose 200 gm .ROUTE DAILY PRN #600 g 03/19/17 [Rx] Oxycodone HCl/Acetaminophen [Percocet 5-325 mg Tablet] 1 each PO BID #30 tablet 03/19/17 [Rx] Sennosides/Docusate Sodium [Senna Plus] 1 each PO DAILY #30 tablet 03/19/17 [Rx] Allergies/Adverse Reactions: Allergies tb skin test Allergy (Uncoded 05/30/16 08:08) See Comments - Respiratory Orders Smoking Cessation: Smoking cessation has been advised. For more information, call the [place] Tobacco Quit Line at 6-092-GRUU-NOW. - Ancillary Orders May use pressure relief devices daily prn - Advance Directives Living Will: Yes Power of Ore Crusher: Yes Code Status: Full Code - Mobility Orders Bedrest - Rehabiliation Orders Rehab Potential: Poor Rehab Orders: Evaluation for Physical Therapy, Evaluation for Occupational Therapy - Treatments Skin tear care topically daily PRN per policy, May check for fecal impaction rectally daily PRN, Fleet enema rectally every other day PRN cleansing purposes - Diet Orders Pureed CERTIFICATION: I certify that the transfer of the above named patient to an Extended Care Facility is necessary for the continuing treatment of the diagnosis listed. The above information is true and accurate reflection of patient's current condition. Confidential - Redisclosure prohibited without a patient's written consent.
--- NOTE | 2017-03-19 16:46 | Physician Discharge Referral ---
Home Health/Hosp Referral Info Transfer to: Home Health Provider in Charge Post Discharge: PCP - Diagnosis (1) Ileus Status: Acute (2) Constipation Status: Acute (3) Cognitive and neurobehavioral dysfunction Status: Chronic (4) Hypokalemia Status: Acute (5) Dehydration Status: Acute (6) UTI (urinary tract infection) Status: Acute - Respiratory Orders Smoking Cessation: Smoking cessation has been advised. For more information, call the [place] Tobacco Quit Line at 6-384-XAUD-NOW. - Diet/Nutrition Diet/Nutrition Orders: Pureed - Activity Activity Orders: Bedrest - Services Needed Following services are medically necessary services: Nursing ([place] palliative care nurse), Home Health Aide - Transfer Medications Prescriptions: Cefuroxime PO [Ceftin] 250 mg PO Q12HR #10 tablet FentaNYL PATCH [Duragesic] 12 mcg TD Q72H #7 patch.td72 Lactulose 200 gm .ROUTE DAILY PRN #600 g PRN Reason: Constipation Oxycodone HCl/Acetaminophen [Percocet 5-325 mg Tablet] 1 each PO BID #30 tablet Sennosides/Docusate Sodium [Senna Plus] 1 each PO DAILY #30 tablet Home Medications: Budesonide Neb [Pulmicort Neb] 0.5 mg IH BIDR 04/29/16 [History] Calcium Carbonate/Vitamin D3 [Oyster Shell 500-Vit D3 200 Tb] 1 tab PO BID 04/29 [History] Famotidine [Pepcid] 20 mg PO HS 04/29/16 [History] Ferrous Sulfate [Iron Supplement] 325 mg PO BID 04/29/16 [History] Multivit-Min/FA/Lycopen/Lutein [Certavite Sr-Antioxidant Tab] 1 tab PO DAILY 01/10 [History] OLANZapine [Zyprexa Zydis] 10 mg PO HS 04/29/16 [History] Raloxifene [Evista] 60 mg PO DAILY 04/29/16 [History] carBAMazepine [Tegretol] 200 mg PO BID 04/29/16 [History] carBAMazepine [Tegretol] 400 mg PO HS 04/29/16 [History] Mirtazapine [Remeron] 22.5 mg PO HS 02/12/17 [History] Eszopiclone [Lunesta] 3 mg PO HS 03/16/17 [History] Ipratropium/Albuterol Neb [Duoneb] 3 ml IH Q6HR 03/16/17 [History] Cefuroxime PO [Ceftin] 250 mg PO Q12HR #10 tablet 03/19/17 [Rx] FentaNYL PATCH [Duragesic] 12 mcg TD Q72H #7 patch.td72 03/19/17 [Rx] Lactulose 200 gm .ROUTE DAILY PRN #600 g 03/19/17 [Rx] Oxycodone HCl/Acetaminophen [Percocet 5-325 mg Tablet] 1 each PO BID #30 tablet 03/19/17 [Rx] Sennosides/Docusate Sodium [Senna Plus] 1 each PO DAILY #30 tablet 03/19/17 [Rx] Allergies/Adverse Reactions: Allergies tb skin test Allergy (Uncoded 05/30/16 08:08) See Comments Certification: Further, I certify that my clinical findings support that this patient is homebound (i.e. absences from home require considerable and taxing effort and are for medical reasons or sikhism services or infrequently or short duration when for other reasons) because: Homebound Reason: Patient requires assistance of a person or device to safely leave home, Absences from home are contraindicated except to recieve medical care, Leaving home requires considerable and taxing effort due to condition, Altered mental status requiring supervision when leaving home Attestation: My signature below is to certify that this patient is under my care and that I, or nurse practitioner, or a physician's primary teaching assistant working with me, has a face-to -face encounter with this patient.
== END 2017-03-19 16:35 | disposition home health service (06) | DRG 389 ==
LOC: 3ANU 11:19 → EMEROO 11:19 → SUATTDRO 17:17 → 3ANU 18:12
PROVIDERS: ADMIT Internal Medicine Sleep Medicine; ATTEND Internal Medicine

== ENCOUNTER 2017-04-01 08:51 | Inpatient (IN) ==
[2017-04-01] MEDS ORDERED: 0.9 % Sodium Chloride 1,000 ML IVC ONE (08:55)
--- NOTE | 2017-04-01 08:57 | Emergency Department Note ---
Disposition Clinical Impression: Hypernatremia, Dehydration, Pneumonia, Conjunctivitis Disposition: Admitted As Inpatient Condition: Good Referrals: Dawit Baez MD [Primary Care Provider] - General Adult HPI - General Stated complaint: AMS Time Seen by Provider: 04/01/17 08:54 Nursing Notes Reviewed: Yes Vital Signs Reviewed: Yes - Related Data Home Medications Medication Instructions Recorded Confirmed Budesonide Neb [Pulmicort Neb] 0.5 mg IH BIDR 04/29/16 03/16/17 Calcium Carbonate/Vitamin D3 1 tab PO BID 04/29/16 03/16/17 [Oyster Shell 500-Vit D3 200 Tb] Famotidine [Pepcid] 20 mg PO HS 04/29/16 03/16/17 Ferrous Sulfate [Iron Supplement] 325 mg PO BID 04/29/16 03/16/17 Multivit-Min/FA/Lycopen/Lutein 1 tab PO DAILY 04/29/16 03/16/17 [Certavite Sr-Antioxidant Tab] OLANZapine [Zyprexa Zydis] 10 mg PO HS 04/29/16 03/16/17 Raloxifene [Evista] 60 mg PO DAILY 04/29/16 03/16/17 carBAMazepine [Tegretol] 200 mg PO BID 04/29/16 03/16/17 carBAMazepine [Tegretol] 400 mg PO HS 04/29/16 03/16/17 Mirtazapine [Remeron] 22.5 mg PO HS 02/12/17 03/16/17 Eszopiclone [Lunesta] 3 mg PO HS 03/16/17 03/16/17 Ipratropium/Albuterol Neb [Duoneb] 3 ml IH Q6HR 03/16/17 03/16/17 Previous Rx's Medication Instructions Recorded Cefuroxime PO [Ceftin] 250 mg PO Q12HR #10 tablet 03/19/17 FentaNYL PATCH [Duragesic] 12 mcg TD Q72H #7 patch.td72 03/19/17 Lactulose 200 gm .ROUTE DAILY PRN #600 g 03/19/17 Oxycodone HCl/Acetaminophen 1 each PO BID #30 tablet 03/19/17 [Percocet 5-325 mg Tablet] Sennosides/Docusate Sodium [Senna 1 each PO DAILY #30 tablet 03/19/17 Plus] Allergies Allergy/AdvReac Type Severity Reaction Status Date / Time tb skin test Allergy See Uncoded 05/30/16 08:08 Comments Past Medical History - Past Medical History Medical history: Reports: COPD, GERD, osteoporosis, other Surgical history: Reports: colostomy Psychiatric history: Reports: schizophrenia - Social History Smoking Status: Unknown if ever smoked Smokeless Tobacco Status: No Alcohol use: Reports: unknown Drug use: Reports: unknown Course Vital Signs Temperature 99.8 F H 04/01/17 08:53 Pulse Rate 106 04/01/17 08:53 Respiratory Rate 20 04/01/17 08:53 Blood Pressure 115/74 04/01/17 08:53 O2 Sat by Pulse Oximetry 93 04/01/17 08:53 Temperature 98.4 F 04/01/17 10:05 Pulse Rate 103 04/01/17 10:05 Respiratory Rate 20 04/01/17 10:05 Blood Pressure 112/71 04/01/17 10:05 O2 Sat by Pulse Oximetry 95 04/01/17 10:05 Oxygen Delivery Oxygen Delivery Room Air Medical Decision Making - MDM Narrative Medical decision making narrative: I examined this patient and my medical decision-making was reviewed with the MEDICAL LEADER/PA/Advanced Practice Nurse/Resident Physician. I agree with the documented findings, disposition and treatment plan as described except to the extent set forth below. Patient was seen on arrival with Dr. Thompson and myself , she was transported by EMS from [facility]. They did stated that she had an alteration in mental status. 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 Waiting on caregivers to come in for more history as patient is not able to give history due to mental status and is not normally vocal to be able to give history. She has no focal deficits on exam she does have conjunctivitis on the left eye she is awake I do not think should she need sentinel patch removed at this time her vitals are stable. We will go in order labs her fingerstick blood sugar showed euglycemia per squad and was awaiting labs and caregiver for more history. Chest X-Ray 04/01/17 08:55 IMPRESSION: 1. Opacities in the left mid to upper lung are suspicious for pneumonia. 2. Diffuse osteopenia. 3. Colonic dilation and distention similar to prior exam. D/ / 04/01/2017 10:12:21 Fabiola Goldberg MD / abraham Interpreting Provider: Fabiola Goldberg MD 1040 hrs.: Patient's white count 26,000 she does have a pneumonia rest her on Levaquin. [place] fluids on the sepsis protocol abdominal lactate and blood cultures and bring her in for admission. 1112 hrs.: Spoke with the hospitalist agreed to admission. Because of her hypernatremia we discussed changing fluids and he said to keep her on the normal saline. He agreed with antibiotics and admission at this time. Updating her caregiver. Patient's critical care time excluding any seperately billable procedures is 40 minutes. - Lab Data Result diagrams: 04/01/17 09:19 04/01/17 09:19 Lab Results 04/01/17 04/01/17 04/01/17 Range/Units 09:19 09:19 09:19 WBC 26.2 H (4.3-11.1) K/mcL RBC 4.30 (3.82-4.97) M/mcL Hgb 12.9 (11.5-15.4) g/dL Hct 41.7 (35.3-44.9) % MCV 97.0 (83.0-100.0) fL MCH 30.0 (28.0-33.3) pg MCHC 30.9 L (31.6-35.5) g/dL RDW 13.1 (11.5-14.5) % Plt Count 318 (140-400) K/mcL MPV 11.0 (9.4-12.4) fL Immature Gran % 0.6 (0-4) % Seg Neutrophils % 90.8 % Lymphocytes % 4.8 % Monocytes % 3.6 % Eosinophils % 0.0 % Basophils % 0.2 % Neutrophils # 23.8 H (1.6-8.9) K/mcL Lymphocytes # 1.3 (0.6-4.6) K/mcL Monocytes # 0.9 (0.0-1.3) K/mcL Eosinophils # 0.0 (0.0-0.6) K/mcL Basophils # 0.1 (0.0-0.2) K/mcL Platelet Estimate Normal (Normal) Sodium 153 H (136-145) mEq/L Potassium 3.8 (3.5-4.5) mEq/L Chloride 112 H (98-109) mEq/L Carbon Dioxide 31 H (19-29) mEq/L BUN 84 H (7-20) mg/dL Creatinine 1.01 (0.57-1.11) mg/dL Est GFR ( Amer) > 60 (> 60) Est GFR (Non-Af Amer) 52 L (> 60) BUN/Creatinine Ratio 83 H (6-26) Glucose 133 H (70-99) mg/dL Calculated Osmolality 343 H (280-300) Calcium 10.0 (8.6-10.8) mg/dL Total Bilirubin 0.7 (0.2-1.2) mg/dL Direct Bilirubin 0.3 (0.0-0.5) mg/dL Indirect Bilirubin 0.4 (0.0-1.2) mg/dL AST 23 (5-34) Units/L ALT 24 (0-55) Units/L Alkaline Phosphatase 115 (38-126) Units/L Troponin I 0.03 (0-0.03) ng/mL Serum Total Protein 6.8 (6.0-8.3) g/dL Albumin 2.6 L (3.5-5.0) g/dL Globulin 4.2 H (2.4-3.5) g/dL Albumin/Globulin Ratio 0.6 L (1.1-2.2) Urine Color (Yellow) Urine Clarity (Clear) Urine pH (5.0-8.0) pH Units Ur Specific Dra[place] (1.010-1.025) Urine Protein (Neg-Trace) mg/dL Urine Glucose (UA) (Normal) mg/dL Urine Ketones (Negative) mg/dL Urine Blood (Negative) Urine Nitrite (Negative) Urine Bilirubin (Negative) Urine Urobilinogen (Normal) mg/dL Ur Leukocyte Esterase (Negative) Urine Microscopic RBC (0-3) per hpf Urine Microscopic WBC (0-3) per hpf Ur Squamous Epith Cells (None-Few) per lpf Urine Bacteria (None-Few) per hpf Hyaline Casts (None-Few) per lpf Ur Culture Indicated? (NO) Urine Opiates Screen (Hquneu=139) ng/mL Ur Barbiturates Screen (Jcjyli=095) ng/mL Carbamazepine (4.0-12.0) mcg/mL Ur Phencyclidine Scrn (Cutoff=25) ng/mL Ur Amphetamines Screen (Ldbevo=2939) ng/mL U Benzodiazepines Scrn (Znpyst=269) ng/mL Urine Cocaine Screen (Cutoff= 300) ng/mL U Marijuana (THC) Screen (Cutoff = 50) ng/mL 04/01/17 04/01/17 04/01/17 Range/Units 09:19 09:42 09:42 WBC (4.3-11.1) K/mcL RBC (3.82-4.97) M/mcL Hgb (11.5-15.4) g/dL Hct (35.3-44.9) % MCV (83.0-100.0) fL MCH (28.0-33.3) pg MCHC (31.6-35.5) g/dL RDW (11.5-14.5) % Plt Count (140-400) K/mcL MPV (9.4-12.4) fL Immature Gran % (0-4) % Seg Neutrophils % % Lymphocytes % % Monocytes % % Eosinophils % % Basophils % % Neutrophils # (1.6-8.9) K/mcL Lymphocytes # (0.6-4.6) K/mcL Monocytes # (0.0-1.3) K/mcL Eosinophils # (0.0-0.6) K/mcL Basophils # (0.0-0.2) K/mcL Platelet Estimate (Normal) Sodium (136-145) mEq/L Potassium (3.5-4.5) mEq/L Chloride (98-109) mEq/L Carbon Dioxide (19-29) mEq/L BUN (7-20) mg/dL Creatinine (0.57-1.11) mg/dL Est GFR ( Amer) (> 60) Est GFR (Non-Af Amer) (> 60) BUN/Creatinine Ratio (6-26) Glucose (70-99) mg/dL Calculated Osmolality (280-300) Calcium (8.6-10.8) mg/dL Total Bilirubin (0.2-1.2) mg/dL Direct Bilirubin (0.0-0.5) mg/dL Indirect Bilirubin (0.0-1.2) mg/dL AST (5-34) Units/L ALT (0-55) Units/L Alkaline Phosphatase (38-126) Units/L Troponin I (0-0.03) ng/mL Serum Total Protein (6.0-8.3) g/dL Albumin (3.5-5.0) g/dL Globulin (2.4-3.5) g/dL Albumin/Globulin Ratio (1.1-2.2) Urine Color Dark Yellow (Yellow) Urine Clarity Cloudy A (Clear) Urine pH 5.5 (5.0-8.0) pH Units Ur Specific [place] 1.026 H (1.010-1.025) Urine Protein Trace (Neg-Trace) mg/dL Urine Glucose (UA) Normal (Normal) mg/dL Urine Ketones 15 H (Negative) mg/dL Urine Blood Negative (Negative) Urine Nitrite Negative (Negative) Urine Bilirubin Small H (Negative) Urine Urobilinogen Normal (Normal) mg/dL Ur Leukocyte Esterase Trace H (Negative) Urine Microscopic RBC 0-3 (0-3) per hpf Urine Microscopic WBC 0-3 (0-3) per hpf Ur Squamous Epith Cells Many H (None-Few) per lpf Urine Bacteria None Seen (None-Few) per hpf Hyaline Casts None Seen (None-Few) per lpf Ur Culture Indicated? YES A (NO) Urine Opiates Screen Negative (Dpoenl=556) ng/mL Ur Barbiturates Screen Negative (Dskgrg=765) ng/mL Carbamazepine 8.1 (4.0-12.0) mcg/mL Ur Phencyclidine Scrn Negative (Cutoff=25) ng/mL Ur Amphetamines Screen Negative (Xewkad=0008) ng/mL U Benzodiazepines Scrn Negative (Wwvdrd=626) ng/mL Urine Cocaine Screen Negative (Cutoff= 300) ng/mL U Marijuana (THC) Screen Negative (Cutoff = 50) ng/mL
--- NOTE | 2017-04-01 08:58 | Emergency Department Note ---
Disposition Clinical Impression: Hypernatremia, Dehydration Pneumonia Qualifiers: Pneumonia type: due to unspecified organism Laterality: left Lung location: upper lobe of lung Qualified Code(s): J18.1 - Lobar pneumonia, unspecified organism Conjunctivitis Qualifiers: Conjunctivitis type: acute Acute conjunctivitis type: bacterial Laterality: left Qualified Code(s): H10.32 - Unspecified acute conjunctivitis, left eye Disposition: Admitted As Inpatient Condition: Good Referrals: Dawit Baez MD [Primary Care Provider] - Time of Disposition: 10:44 General Adult HPI - General Stated complaint: AMS Time Seen by Provider: 04/01/17 08:54 Nursing Notes Reviewed: Yes Vital Signs Reviewed: Yes - History of Present Illness HPI Narrative: In by EMS for altered mental status. 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 Staff states that Saturday she was normal however over the weekend she started hitting herself in started acting inappropriate. This morning they had a hard time arousing her. They say she normally looks magazines but is not doing that at this time. That she did not have the conjunctivitis on the left eye on Saturday. - Related Data Home Medications Medication Instructions Recorded Confirmed Budesonide Neb [Pulmicort Neb] 0.5 mg IH BIDR 04/29/16 04/01/17 Calcium Carbonate/Vitamin D3 1 tab PO BID 04/29/16 04/01/17 [[place] 500-Vit D3 200 Tb] Famotidine [Pepcid] 20 mg PO HS 04/29/16 04/01/17 Ferrous Sulfate [Iron Supplement] 325 mg PO BID 04/29/16 04/01/17 Multivit-Min/FA/Lycopen/Lutein 1 tab PO DAILY 04/29/16 04/01/17 [Certavite Sr-Antioxidant Tab] OLANZapine [Zyprexa Zydis] 10 mg PO HS 04/29/16 04/01/17 Raloxifene [Evista] 60 mg PO DAILY 04/29/16 04/01/17 carBAMazepine [Tegretol] 200 mg PO BID 04/29/16 04/01/17 carBAMazepine [Tegretol] 400 mg PO HS 04/29/16 04/01/17 Mirtazapine [Remeron] 22.5 mg PO HS 02/12/17 04/01/17 Ipratropium/Albuterol Neb [Duoneb] 3 ml IH Q6HR 03/16/17 04/01/17 Albuterol Neb [Proventil Neb] 2.5 mg IH Q6H PRN 04/01/17 04/01/17 Bismuth Subsalicylate 30 ml PO Q4H PRN 04/01/17 04/01/17 [Pepto-Bismol] GuaiFENesin/Dextromethorphan 10 ml PO Q4H PRN 04/01/17 04/01/17 [Robitussin/DM] HYDROcodone/Acet 5/325 mg [[place] 1 tab PO Q4H PRN 04/01/17 04/01/17 5-325 mg] Mag Hydrox/Al Hydrox/Simeth 15 ml PO DAILY PRN 04/01/17 04/01/17 [[place] Liquid] Magnesium Hydroxide [Milk of 30 ml PO DAILY PRN 04/01/17 04/01/17 Magnesia] Phenol/Glycerin [Chloraseptic Max 1 spray MM Q2H PRN 04/01/17 04/01/17 [place]] Pseudoephedrine [Sudafed] 30 mg PO Q12H PRN 04/01/17 04/01/17 Vits A and D/White Pet/Lanolin [A 1 appl TP DAILY PRN 04/01/17 04/01/17 and D Ointment] fentaNYL [Fentanyl] 25 mcg TP Q48H 04/01/17 04/01/17 Previous Rx's Medication Instructions Recorded Oxycodone HCl/Acetaminophen 1 each PO BID #30 tablet 03/19/17 [Percocet 5-325 mg Tablet] Allergies Allergy/AdvReac Type Severity Reaction Status Date / Time tb skin test Allergy See Uncoded 05/30/16 08:08 Comments Limitations: ROS unobtainable due to patients medical condition Past Medical History - Past Medical History Medical history: Reports: COPD, GERD, osteoporosis, other Surgical history: Reports: colostomy Psychiatric history: Reports: schizophrenia - Social History Smoking Status: Unknown if ever smoked Smokeless Tobacco Status: No Alcohol use: Reports: unknown Drug use: Reports: unknown Physical Exam - General Limitations: altered mental status (MRDD. Patient arouses to touch.) General appearance: other (Arouses to touch.) - Head Head exam: atraumatic, normocephalic, normal inspection - Eye Eye exam: Present: PERRL, EOMI, other (Left eye conjunctivitis.). Absent: scleral icterus - ENT ENT exam: normal exam, normal oropharynx, mucous membranes moist - Neck Neck exam: Present: normal inspection, full ROM, trachea midline. Absent: tenderness, meningismus, lymphadenopathy - Chest Chest inspection: Present: normal inspection, symmetric chest wall rise. Absent : tenderness, rash - Respiratory Respiratory exam: Present: normal lung sounds bilaterally. Absent: respiratory distress - Cardiovascular Cardiovascular exam: Present: regular rate, normal rhythm, normal heart sounds - Abdominal Exam Abdominal exam: Present: soft, Non-Tender, normal bowel sounds. Absent: tenderness, distention, organomegaly - Extremities Exam Extremities exam: Present: normal inspection, full ROM, normal capillary refill. Absent: tenderness, pedal edema - Back Exam Back exam: Present: normal inspection - Skin Skin exam: Present: warm, dry, intact, normal color. Absent: cyanosis Course Course Narrative: Female patient with a history of MRDD presenting to the emergency department by EMS. They were called out for and understands a female. She is responsive to the touch. She screams out. Benign sure how far this is from her baseline. She does not appear to be in any distress. She keeps her eyes closed very tightly. Tenting to open them she squints them very hard. She does have a left -sided conjunctivitis. She does not appear to be in any distress. Lung sounds are clear heart tones are normal abdomen is soft and non-tender. She does appear emaciated. Patient is unable to provide any history. We are waiting for caregivers to arrive to obtain this. We will get a basic lab workup as well as a chest x-ray and a Tegretol level. - Reevaluation(s) Reevaluation #1: Patient has a left upper lobe pneumonia. We will begin patient on Levaquin. She also has a left eye conjunctivitis. She also appears dehydrated. We will admit patient to hospital. Time: 10:42 Vital Signs Temperature 99.8 F H 04/01/17 08:53 Pulse Rate 106 04/01/17 08:53 Respiratory Rate 20 04/01/17 08:53 Blood Pressure 115/74 04/01/17 08:53 O2 Sat by Pulse Oximetry 93 04/01/17 08:53 Temperature 98.4 F 06/05/17 10:05 Pulse Rate 99 04/01/17 12:04 Respiratory Rate 18 04/01/17 12:04 Blood Pressure 132/63 04/01/17 12:04 O2 Sat by Pulse Oximetry 100 04/01/17 12:04 Oxygen Delivery Oxygen Delivery Room Air Medical Decision Making - Medical Records Medical records reviewed: Yes I reviewed the patient's medical records. - Lab Data Lab results reviewed: Yes I reviewed the patient's lab results. Result diagrams: 04/01/17 09:19 04/01/17 09:19 Lab Results 04/01/17 04/01/17 04/01/17 Range/Units 09:19 09:19 09:19 WBC 26.2 H (4.3-11.1) K/mcL RBC 4.30 (3.82-4.97) M/mcL Hgb 12.9 (11.5-15.4) g/dL Hct 41.7 (35.3-44.9) % MCV 97.0 (83.0-100.0) fL MCH 30.0 (28.0-33.3) pg MCHC 30.9 L (31.6-35.5) g/dL RDW 13.1 (11.5-14.5) % Plt Count 318 (140-400) K/mcL MPV 11.0 (9.4-12.4) fL Immature Gran % 0.6 (0-4) % Seg Neutrophils % 90.8 % Lymphocytes % 4.8 % Monocytes % 3.6 % Eosinophils % 0.0 % Basophils % 0.2 % Neutrophils # 23.8 H (1.6-8.9) K/mcL Lymphocytes # 1.3 (0.6-4.6) K/mcL Monocytes # 0.9 (0.0-1.3) K/mcL Eosinophils # 0.0 (0.0-0.6) K/mcL Basophils # 0.1 (0.0-0.2) K/mcL Platelet Estimate Normal (Normal) Sodium 153 H (136-145) mEq/L Potassium 3.8 (3.5-4.5) mEq/L Chloride 112 H (98-109) mEq/L Carbon Dioxide 31 H (19-29) mEq/L BUN 84 H (7-20) mg/dL Creatinine 1.01 (0.57-1.11) mg/dL Est GFR ( Amer) > 60 (> 60) Est GFR (Non-Af Amer) 52 L (> 60) BUN/Creatinine Ratio 83 H (6-26) Glucose 133 H (70-99) mg/dL Calculated Osmolality 343 H (280-300) Lactic Acid (0.5-2.2) mmol/L Calcium 10.0 (8.6-10.8) mg/dL Phosphorus (2.3-4.7) mg/dL Magnesium (1.6-2.6) mg/dL Total Bilirubin 0.7 (0.2-1.2) mg/dL Direct Bilirubin 0.3 (0.0-0.5) mg/dL Indirect Bilirubin 0.4 (0.0-1.2) mg/dL AST 23 (5-34) Units/L ALT 24 (0-55) Units/L Alkaline Phosphatase 115 (38-126) Units/L Troponin I 0.03 (0-0.03) ng/mL Serum Total Protein 6.8 (6.0-8.3) g/dL Albumin 2.6 L (3.5-5.0) g/dL Globulin 4.2 H (2.4-3.5) g/dL Albumin/Globulin Ratio 0.6 L (1.1-2.2) Urine Color (Yellow) Urine Clarity (Clear) Urine pH (5.0-8.0) pH Units Ur Specific [place] (1.010-1.025) Urine Protein (Neg-Trace) mg/dL Urine Glucose (UA) (Normal) mg/dL Urine Ketones (Negative) mg/dL Urine Blood (Negative) Urine Nitrite (Negative) Urine Bilirubin (Negative) Urine Urobilinogen (Normal) mg/dL Ur Leukocyte Esterase (Negative) Urine Microscopic RBC (0-3) per hpf Urine Microscopic WBC (0-3) per hpf Ur Squamous Epith Cells (None-Few) per lpf Urine Bacteria (None-Few) per hpf Hyaline Casts (None-Few) per lpf Ur Culture Indicated? (NO) Urine Opiates Screen (Bxmvax=582) ng/mL Ur Barbiturates Screen (Rbyrti=750) ng/mL Carbamazepine (4.0-12.0) mcg/mL Ur Phencyclidine Scrn (Cutoff=25) ng/mL Ur Amphetamines Screen (Kptibg=7478) ng/mL U Benzodiazepines Scrn (Alamty=391) ng/mL Urine Cocaine Screen (Cutoff= 300) ng/mL U Marijuana (THC) Screen (Cutoff = 50) ng/mL 04/01/17 04/01/17 04/01/17 Range/Units 09:19 09:42 09:42 WBC (4.3-11.1) K/mcL RBC (3.82-4.97) M/mcL Hgb (11.5-15.4) g/dL Hct (35.3-44.9) % MCV (83.0-100.0) fL MCH (28.0-33.3) pg MCHC (31.6-35.5) g/dL RDW (11.5-14.5) % Plt Count (140-400) K/mcL MPV (9.4-12.4) fL Immature Gran % (0-4) % Seg Neutrophils % % Lymphocytes % % Monocytes % % Eosinophils % % Basophils % % Neutrophils # (1.6-8.9) K/mcL Lymphocytes # (0.6-4.6) K/mcL Monocytes # (0.0-1.3) K/mcL Eosinophils # (0.0-0.6) K/mcL Basophils # (0.0-0.2) K/mcL Platelet Estimate (Normal) Sodium (136-145) mEq/L Potassium (3.5-4.5) mEq/L Chloride (98-109) mEq/L Carbon Dioxide (19-29) mEq/L BUN (7-20) mg/dL Creatinine (0.57-1.11) mg/dL Est GFR ( Amer) (> 60) Est GFR (Non-Af Amer) (> 60) BUN/Creatinine Ratio (6-26) Glucose (70-99) mg/dL Calculated Osmolality (280-300) Lactic Acid (0.5-2.2) mmol/L Calcium (8.6-10.8) mg/dL Phosphorus (2.3-4.7) mg/dL Magnesium (1.6-2.6) mg/dL Total Bilirubin (0.2-1.2) mg/dL Direct Bilirubin (0.0-0.5) mg/dL Indirect Bilirubin (0.0-1.2) mg/dL AST (5-34) Units/L ALT (0-55) Units/L Alkaline Phosphatase (38-126) Units/L Troponin I (0-0.03) ng/mL Serum Total Protein (6.0-8.3) g/dL Albumin (3.5-5.0) g/dL Globulin (2.4-3.5) g/dL Albumin/Globulin Ratio (1.1-2.2) Urine Color Dark Yellow (Yellow) Urine Clarity Cloudy A (Clear) Urine pH 5.5 (5.0-8.0) pH Units Ur Specific [place] 1.026 H (1.010-1.025) Urine Protein Trace (Neg-Trace) mg/dL Urine Glucose (UA) Normal (Normal) mg/dL Urine Ketones 15 H (Negative) mg/dL Urine Blood Negative (Negative) Urine Nitrite Negative (Negative) Urine Bilirubin Small H (Negative) Urine Urobilinogen Normal (Normal) mg/dL Ur Leukocyte Esterase Trace H (Negative) Urine Microscopic RBC 0-3 (0-3) per hpf Urine Microscopic WBC 0-3 (0-3) per hpf Ur Squamous Epith Cells Many H (None-Few) per lpf Urine Bacteria None Seen (None-Few) per hpf Hyaline Casts None Seen (None-Few) per lpf Ur Culture Indicated? YES A (NO) Urine Opiates Screen Negative (Jatqbq=159) ng/mL Ur Barbiturates Screen Negative (Zdrmrl=955) ng/mL Carbamazepine 8.1 (4.0-12.0) mcg/mL Ur Phencyclidine Scrn Negative (Cutoff=25) ng/mL Ur Amphetamines Screen Negative (Cmbrkn=9439) ng/mL U Benzodiazepines Scrn Negative (Ebktts=265) ng/mL Urine Cocaine Screen Negative (Cutoff= 300) ng/mL U Marijuana (THC) Screen Negative (Cutoff = 50) ng/mL 04/01/17 04/01/17 Range/Units 11:09 11:09 WBC (4.3-11.1) K/mcL RBC (3.82-4.97) M/mcL Hgb (11.5-15.4) g/dL Hct (35.3-44.9) % MCV (83.0-100.0) fL MCH (28.0-33.3) pg MCHC (31.6-35.5) g/dL RDW (11.5-14.5) % Plt Count (140-400) K/mcL MPV (9.4-12.4) fL Immature Gran % (0-4) % Seg Neutrophils % % Lymphocytes % % Monocytes % % Eosinophils % % Basophils % % Neutrophils # (1.6-8.9) K/mcL Lymphocytes # (0.6-4.6) K/mcL Monocytes # (0.0-1.3) K/mcL Eosinophils # (0.0-0.6) K/mcL Basophils # (0.0-0.2) K/mcL Platelet Estimate (Normal) Sodium (136-145) mEq/L Potassium (3.5-4.5) mEq/L Chloride (98-109) mEq/L Carbon Dioxide (19-29) mEq/L BUN (7-20) mg/dL Creatinine (0.57-1.11) mg/dL Est GFR ( Amer) (> 60) Est GFR (Non-Af Amer) (> 60) BUN/Creatinine Ratio (6-26) Glucose (70-99) mg/dL Calculated Osmolality (280-300) Lactic Acid 2.4 H (0.5-2.2) mmol/L Calcium (8.6-10.8) mg/dL Phosphorus 3.6 (2.3-4.7) mg/dL Magnesium 2.5 (1.6-2.6) mg/dL Total Bilirubin (0.2-1.2) mg/dL Direct Bilirubin (0.0-0.5) mg/dL Indirect Bilirubin (0.0-1.2) mg/dL AST (5-34) Units/L ALT (0-55) Units/L Alkaline Phosphatase (38-126) Units/L Troponin I (0-0.03) ng/mL Serum Total Protein (6.0-8.3) g/dL Albumin (3.5-5.0) g/dL Globulin (2.4-3.5) g/dL Albumin/Globulin Ratio (1.1-2.2) Urine Color (Yellow) Urine Clarity (Clear) Urine pH (5.0-8.0) pH Units Ur Specific [place] (1.010-1.025) Urine Protein (Neg-Trace) mg/dL Urine Glucose (UA) (Normal) mg/dL Urine Ketones (Negative) mg/dL Urine Blood (Negative) Urine Nitrite (Negative) Urine Bilirubin (Negative) Urine Urobilinogen (Normal) mg/dL Ur Leukocyte Esterase (Negative) Urine Microscopic RBC (0-3) per hpf Urine Microscopic WBC (0-3) per hpf Ur Squamous Epith Cells (None-Few) per lpf Urine Bacteria (None-Few) per hpf Hyaline Casts (None-Few) per lpf Ur Culture Indicated? (NO) Urine Opiates Screen (Cjctlu=436) ng/mL Ur Barbiturates Screen (Pwatvm=518) ng/mL Carbamazepine (4.0-12.0) mcg/mL Ur Phencyclidine Scrn (Cutoff=25) ng/mL Ur Amphetamines Screen (Pjsgcn=0453) ng/mL U Benzodiazepines Scrn (Qjqzzb=582) ng/mL Urine Cocaine Screen (Cutoff= 300) ng/mL U Marijuana (THC) Screen (Cutoff = 50) ng/mL - Radiology Data Radiology results reviewed: Yes I reviewed the patient's radiology results. Chest X-Ray 04/01/17 08:55 IMPRESSION: 1. Opacities in the left mid to upper lung are suspicious for pneumonia. 2. Diffuse osteopenia. 3. Colonic dilation and distention similar to prior exam. D/ / 04/01/2017 10:12:21 Fabiola Goldberg MD / abraham Interpreting Provider: Fabiola Goldberg MD - EKG Data EKG #1 EKG attestation: Yes I reviewed and interpreted this EKG. EKG results narrative: Sinus tachycardia with a first-degree AV block rate of 106. IN interval is 226. QRS duration is 92. QT is 322. QTC is 384. No signs of acute ischemia. There is some worsening of R-wave progression from previous EKG dated 2016. EKG #2 EKG attestation: Yes I reviewed and interpreted this EKG. EKG results narrative: Sinus tachycardia with a first-degree AV block. Ventricular rate 106. IN interval of 226. QRS duration of 92. QT of 322. QTC of 384. No signs of acute ischemia. No changes from previous EKG done earlier today. There is still the poor R-wave progression from previous EKG that was done in February.
[2017-04-01 09:31] LABS: Basophils % 0.2 %; Immature Granulocytes % 0.6 % (0-4); Red Cell Distribution Width 13.1 % (11.5-14.5); Segmented Neutrophils % 90.8 %
[2017-04-01 09:34] LABS: Basophils # 0.1 K/mcL (0.0-0.2); Hematocrit 41.7 % (35.3-44.9); Hemoglobin 12.9 g/dL (11.5-15.4); Lymphocytes # 1.3 K/mcL (0.6-4.6); Lymphocytes % 4.8 %; Mean Corpuscular HGB Conc 30.9 g/dL (31.6-35.5); Monocytes # 0.9 K/mcL (0.0-1.3); Monocytes % 3.6 %; Neutrophils # 23.8 K/mcL (1.6-8.9); Platelet Count 318 K/mcL (140-400)
[2017-04-01 09:42] LABS: Alanine Aminotransferase 24 Units/L (0-55); Albumin 2.6 g/dL (3.5-5.0); Albumin/Globulin Ratio 0.6 (1.1-2.2); Alkaline Phosphatase 115 Units/L (38-126); Aspartate Amino Transferase 23 Units/L (5-34); BUN/Creatinine Ratio 83 (6-26); Bilirubin,Direct 0.3 mg/dL (0.0-0.5); Bilirubin,Indirect 0.4 mg/dL (0.0-1.2); Bilirubin,Total 0.7 mg/dL (0.2-1.2); Blood Urea Nitrogen 84 mg/dL (7-20); Carbon Dioxide 31 mEq/L (19-29); Chloride 112 mEq/L (98-109); Globulin 4.2 g/dL (2.4-3.5); Glucose 133 mg/dL (70-99); Osmolality,Calculated 343 (280-300); Potassium 3.8 mEq/L (3.5-4.5); Sodium 153 mEq/L (136-145); Total Protein 6.8 g/dL (6.0-8.3); eGFR For African Americans > 60 (> 60); eGFR For Non-African Americans 52 (> 60)
[2017-04-01 09:53] LABS: Platelet Estimate Normal (Normal)
[2017-04-01 09:58] LABS: Bilirubin,Urine Small (Negative); Blood,Urine Negative (Negative); Clarity,Urine Cloudy (Clear); Color,Urine Dark Yellow (Yellow); Glucose,Urine (UA) Normal (Normal); Ketones,Urine 15 mg/dL (Negative); Leukocyte Esterase,Urine Trace (Negative); Nitrite,Urine Negative (Negative); PH,Urine 5.5 pH Units (5.0-8.0); Protein,Urine Trace mg/dL (Neg-Trace); Specific Gravity,Urine 1.026 (1.010-1.025); Urobilinogen,Urine Normal (Normal)
[2017-04-01 09:59] LABS: Amphetamine Screen,Urine Negative ng/mL (Cutoff=1000); Barbiturate Screen,Urine Negative ng/mL (Cutoff=200); Benzodiazepines Screen,Urine Negative ng/mL (Cutoff=200); Cannabinoid Screen,Urine Negative ng/mL (Cutoff = 50); Cocaine Screen,Urine Negative ng/mL (Cutoff= 300); Opiate Screen,Urine Negative ng/mL (Cutoff=300); Phencyclidine Screen,Urine Negative ng/mL (Cutoff=25)
[2017-04-01 10:00] LABS: Bacteria,Urine None Seen per hpf (None-Few); Hyaline Casts,Urine None Seen per lpf (None-Few); RBC,Urine 0-3 per hpf (0-3); Squamous Epithelial Cell,Urine Many per lpf (None-Few); WBC,Urine 0-3 per hpf (0-3)
[2017-04-01] MEDS ORDERED: Levofloxacin 750 MG/150 ML 750 MG/150 ML BAG IVPB ONE (10:39)
[2017-04-01] MEDS ORDERED: 0.9 % Sodium Chloride 500 ML IVC ONE (10:41)
[2017-04-01 11:28] LABS: Magnesium 2.5 mg/dL (1.6-2.6); Phosphorous 3.6 mg/dL (2.3-4.7)
[2017-04-01] MEDS ORDERED: Albuterol 2.5 MG/3 ML NEBULIZER IH PRN (11:58)
[2017-04-01] MEDS ORDERED: Naloxone 0.4 MG/ML INJ IVP PRN (11:59)
[2017-04-01] MEDS ORDERED: *HR* Morphine 2 MG/ML SYRINGE IVP PRN ×3 (11:59→19:42)
[2017-04-01] MEDS ORDERED: Ondansetron 4 MG/2 ML VIAL IVP PRN (11:59)
[2017-04-01] MEDS ORDERED: *HR* FentaNYL PATCH 25 MCG PATCH TD SCH (12:00)
--- NOTE | 2017-04-01 12:12 | Internal Med History&Physical ---
Date of Encounter: 04/01/17 Time of Encounter: 12:08 Assessment and Plan (1) HCAP (healthcare-associated pneumonia) Current visit: Yes Status: Acute Patient presented with altered mental status, chest x-ray revealed opacities in the mid and upper left lung, consistent with pneumonia. Patient was recently discharged from the hospital in the last few weeks. White blood cell count elevated 26.2. Lactate elevated at 2.4. IV fluid boluses given in the ED for a total of 1500 mL Continue IV fluids D5-0.45 at 125mL per hour Vanc and Zosyn IV piggyback DuoNeb's 4 times a day Albuterol nebulizer every 2 when necessary Titrate oxygen to maintain saturation greater than 92% (2) Sepsis Current visit: Yes Status: Acute Patient with pneumonia on chest x-ray. She is tachycardic with heart rate in the 110s. Her blood cell count 26.2, lactate elevated at 2.4, meeting criteria for sepsis. Fluid boluses given in the ED with 0.9 normal saline for total of 1500 mL. Blood cultures drawn and sent Lactate elevated at 2.4, we will get repeat. Patient given Levaquin in ED, we will continue with zinc and Zosyn given patient 's recent hospital admission. Qualifiers: Sepsis type: sepsis due to unspecified organism Qualified Code(s): A41.9 - Sepsis, unspecified organism (3) Hypernatremia Current visit: Yes Status: Acute Sodium of 153. Patient appears dry and dehydrated. 1500 mL of 0.9 normal saline given and ED Change fluids to D5/0.45NS at 125mL/hr check sodium Q6hrs Check chemistry with morning labs (4) Dehydration Current visit: Yes Status: Acute Patient appears dehydrated with dry, furrowed tongue, dry skin. UA consistent with dehydration. BUN elevated to 84, sodium elevated to 153. 1.5L fluid bolus given in ED. Will continue with D5/0.45NS at 125mL/hr. Recheck chemistry in the morning. (5) Conjunctivitis Current visit: Yes Status: Acute Patient with cunjunctival injection and crusting bilaterally. Cipro eye drops Qualifiers: Conjunctivitis type: acute Acute conjunctivitis type: bacterial Laterality: bilateral Qualified Code(s): H10.33 - Unspecified acute conjunctivitis, bilateral (6) DVT prophylaxis Current visit: Yes Status: Acute anti-embolic stockings Heparin 5000u SQ TID Internal Medicine - H&P: HPI Chief complaint: AMS Admitted From: Emergency Dept Plans for Post Hospital Care: Home History of present illness: Ms. Smith is a 87 year old female with MRDD, lives in a detention, COPD, GERD, osteoporosis, who presents to the emergency department today with reports of altered mental status. Patient's caregiver reports that this morning when she went to wake the patient she did not respond, and was unable to take her medications. Patient's caregiver reports that at her baseline patient does verbally respond, does usually take her medications. Evaluation in emergency department revealed elevated white blood cell count of 26.2, chest x-ray showed opacities in mid and upper left lung consistent with pneumonia, patient was tachycardic with heart rate in the low 100s, lactate was elevated at 2.4, sodium was elevated at 153. UA was consistent with dehydration. On exam, patient appears cachexic, she opens her eyes to physical stimuli. Her tongue is dry and farrowed, she appears dry. Heart has regular rhythm with tachycardic rate lungs are clear to auscultation. Past Med Surg Social Fam HX - Past Medical History Medical history: COPD, GERD, osteoporosis, other Psychiatric history: schizophrenia - Past Surgical History Surgical History: colostomy - Social History Smoking Status: Unknown if ever smoked Smokeless Tobacco Status: No Alcohol use: unknown Drug use: unknown - Family History Mother Family Member Ethnicity: Non- Living Status: Father Family Member Ethnicity: Non- Living Status: Brother Family Member Ethnicity: Non- Living Status: Still Living Sister Family Member Ethnicity: Non- Living Status: Still Living Internal Medicine - H&P: Meds Budesonide Neb [Pulmicort Neb] 0.5 mg IH BIDR 04/29/16 [History] Calcium Carbonate/Vitamin D3 [Oyster Shell 500-Vit D3 200 Tb] 1 tab PO BID 04/29 [History] Famotidine [Pepcid] 20 mg PO HS 04/29/16 [History] Ferrous Sulfate [Iron Supplement] 325 mg PO BID 04/29/16 [History] Multivit-Min/FA/Lycopen/Lutein [Certavite Sr-Antioxidant Tab] 1 tab PO DAILY 01/10 [History] OLANZapine [Zyprexa Zydis] 10 mg PO HS 04/29/16 [History] Raloxifene [Evista] 60 mg PO DAILY 04/29/16 [History] carBAMazepine [Tegretol] 200 mg PO BID 04/29/16 [History] carBAMazepine [Tegretol] 400 mg PO HS 04/29/16 [History] Mirtazapine [Remeron] 22.5 mg PO HS 02/12/17 [History] Ipratropium/Albuterol Neb [Duoneb] 3 ml IH Q6HR 03/16/17 [History] Oxycodone HCl/Acetaminophen [Percocet 5-325 mg Tablet] 1 each PO BID #30 tablet 03/19/17 [Rx] Albuterol Neb [Proventil Neb] 2.5 mg IH Q6H PRN 04/01/17 [History] Bismuth Subsalicylate [Pepto-Bismol] 30 ml PO Q4H PRN 04/01/17 [History] GuaiFENesin/Dextromethorphan [Robitussin/DM] 10 ml PO Q4H PRN 04/01/17 [History] HYDROcodone/Acet 5/325 mg [[place] 5-325 mg] 1 tab PO Q4H PRN 04/01/17 [History] Mag Hydrox/Al Hydrox/Simeth [Masanti Liquid] 15 ml PO DAILY PRN 04/01/17 [ History] Magnesium Hydroxide [Milk of Magnesia] 30 ml PO DAILY PRN 04/01/17 [History] Phenol/Glycerin [Chloraseptic Max Sarver] 1 spray MM Q2H PRN 04/01/17 [History] Pseudoephedrine [Sudafed] 30 mg PO Q12H PRN 04/01/17 [History] Vits A and D/White Pet/Lanolin [A and D Ointment] 1 appl TP DAILY PRN 04/01/17 [ History] fentaNYL [Fentanyl] 25 mcg TP Q48H 04/01/17 [History] Allergies tb skin test Allergy (Uncoded 05/30/16 08:08) See Comments ROS unobtainable: due to mental status All Systems PM: A 10-system review of systems was performed and is negative for pertinent findings except as documented above in the HPI. - Constitutional Vitals: Temp Pulse Resp BP Pulse Ox 98.4 F 99 18 132/63 100 04/01/17 10:05 04/01/17 12:04 04/01/17 12:04 04/01/17 12:04 04/01/17 12:04 General appearance: Present: cachectic, A&O X 0, underweight - Head Head exam: Present: atraumatic, normocephalic - Eye Eye exam: Present: conjunctival injection, conjuntiva pink, sclera anicteric Pupils: Present: PERRL - Neck Neck exam general surgery: Present: supple, trachea midline. Absent: lymphadenopathy - Respiratory Respiratory exam: Present: CTAB. Absent: accessory muscle use, rales, rhonchi, wheezes - Cardiovascular Cardiovascular exam: Present: RRR, +S1, +S2, tachycardia. Absent: diastolic murmur, gallop, rubs, systolic murmur - GI/Abdominal GI/Abdominal exam: Present: normal bowel sounds, no peritoneal signs. Absent: distended, tenderness - Extremities Exam Extremities exam: Present: warm, radial pulses palpable and symetrical. Absent : calf tenderness, cyanotic, pedal edema - Neurological Exam Neurological exam: Present: facial droop (mouth droops on right side, caregiver reports this is baseline). Absent: alert - Skin Skin exam: Present: dry, intact Internal Med - H&P Results - Labs CBC & Chem 7: 04/01/17 09:19 04/01/17 19:06 Labs: All Lab Results (24 Hours) 04/01/17 04/01/17 04/01/17 Range/Units 09:19 09:19 09:19 WBC 26.2 H (4.3-11.1) K/mcL RBC 4.30 (3.82-4.97) M/mcL Hgb 12.9 (11.5-15.4) g/dL Hct 41.7 (35.3-44.9) % MCV 97.0 (83.0-100.0) fL MCH 30.0 (28.0-33.3) pg MCHC 30.9 L (31.6-35.5) g/dL RDW 13.1 (11.5-14.5) % Plt Count 318 (140-400) K/mcL MPV 11.0 (9.4-12.4) fL Immature Gran % 0.6 (0-4) % Seg Neutrophils % 90.8 % Lymphocytes % 4.8 % Monocytes % 3.6 % Eosinophils % 0.0 % Basophils % 0.2 % Neutrophils # 23.8 H (1.6-8.9) K/mcL Lymphocytes # 1.3 (0.6-4.6) K/mcL Monocytes # 0.9 (0.0-1.3) K/mcL Eosinophils # 0.0 (0.0-0.6) K/mcL Basophils # 0.1 (0.0-0.2) K/mcL Platelet Estimate Normal (Normal) Sodium 153 H (136-145) mEq/L Potassium 3.8 (3.5-4.5) mEq/L Chloride 112 H (98-109) mEq/L Carbon Dioxide 31 H (19-29) mEq/L BUN 84 H (7-20) mg/dL Creatinine 1.01 (0.57-1.11) mg/dL Est GFR ( Amer) > 60 (> 60) Est GFR (Non-Af Amer) 52 L (> 60) BUN/Creatinine Ratio 83 H (6-26) Glucose 133 H (70-99) mg/dL Calculated Osmolality 343 H (280-300) Lactic Acid (0.5-2.2) mmol/L Calcium 10.0 (8.6-10.8) mg/dL Phosphorus (2.3-4.7) mg/dL Magnesium (1.6-2.6) mg/dL Total Bilirubin 0.7 (0.2-1.2) mg/dL Direct Bilirubin 0.3 (0.0-0.5) mg/dL Indirect Bilirubin 0.4 (0.0-1.2) mg/dL AST 23 (5-34) Units/L ALT 24 (0-55) Units/L Alkaline Phosphatase 115 (38-126) Units/L Troponin I 0.03 (0-0.03) ng/mL Serum Total Protein 6.8 (6.0-8.3) g/dL Albumin 2.6 L (3.5-5.0) g/dL Globulin 4.2 H (2.4-3.5) g/dL Albumin/Globulin Ratio 0.6 L (1.1-2.2) Urine Color (Yellow) Urine Clarity (Clear) Urine pH (5.0-8.0) pH Units Ur Specific [place] (1.010-1.025) Urine Protein (Neg-Trace) mg/dL Urine Glucose (UA) (Normal) mg/dL Urine Ketones (Negative) mg/dL Urine Blood (Negative) Urine Nitrite (Negative) Urine Bilirubin (Negative) Urine Urobilinogen (Normal) mg/dL Ur Leukocyte Esterase (Negative) Urine Microscopic RBC (0-3) per hpf Urine Microscopic WBC (0-3) per hpf Ur Squamous Epith Cells (None-Few) per lpf Urine Bacteria (None-Few) per hpf Hyaline Casts (None-Few) per lpf Ur Culture Indicated? (NO) Urine Opiates Screen (Mugowp=738) ng/mL Ur Barbiturates Screen (Mjhcvf=088) ng/mL Carbamazepine (4.0-12.0) mcg/mL Ur Phencyclidine Scrn (Cutoff=25) ng/mL Ur Amphetamines Screen (Dgyvwt=6368) ng/mL U Benzodiazepines Scrn (Kptnml=249) ng/mL Urine Cocaine Screen (Cutoff= 300) ng/mL U Marijuana (THC) Screen (Cutoff = 50) ng/mL 04/01/17 04/01/17 04/01/17 Range/Units 09:19 09:42 09:42 WBC (4.3-11.1) K/mcL RBC (3.82-4.97) M/mcL Hgb (11.5-15.4) g/dL Hct (35.3-44.9) % MCV (83.0-100.0) fL MCH (28.0-33.3) pg MCHC (31.6-35.5) g/dL RDW (11.5-14.5) % Plt Count (140-400) K/mcL MPV (9.4-12.4) fL Immature Gran % (0-4) % Seg Neutrophils % % Lymphocytes % % Monocytes % % Eosinophils % % Basophils % % Neutrophils # (1.6-8.9) K/mcL Lymphocytes # (0.6-4.6) K/mcL Monocytes # (0.0-1.3) K/mcL Eosinophils # (0.0-0.6) K/mcL Basophils # (0.0-0.2) K/mcL Platelet Estimate (Normal) Sodium (136-145) mEq/L Potassium (3.5-4.5) mEq/L Chloride (98-109) mEq/L Carbon Dioxide (19-29) mEq/L BUN (7-20) mg/dL Creatinine (0.57-1.11) mg/dL Est GFR ( Amer) (> 60) Est GFR (Non-Af Amer) (> 60) BUN/Creatinine Ratio (6-26) Glucose (70-99) mg/dL Calculated Osmolality (280-300) Lactic Acid (0.5-2.2) mmol/L Calcium (8.6-10.8) mg/dL Phosphorus (2.3-4.7) mg/dL Magnesium (1.6-2.6) mg/dL Total Bilirubin (0.2-1.2) mg/dL Direct Bilirubin (0.0-0.5) mg/dL Indirect Bilirubin (0.0-1.2) mg/dL AST (5-34) Units/L ALT (0-55) Units/L Alkaline Phosphatase (38-126) Units/L Troponin I (0-0.03) ng/mL Serum Total Protein (6.0-8.3) g/dL Albumin (3.5-5.0) g/dL Globulin (2.4-3.5) g/dL Albumin/Globulin Ratio (1.1-2.2) Urine Color Dark Yellow (Yellow) Urine Clarity Cloudy A (Clear) Urine pH 5.5 (5.0-8.0) pH Units Ur Specific [place] 1.026 H (1.010-1.025) Urine Protein Trace (Neg-Trace) mg/dL Urine Glucose (UA) Normal (Normal) mg/dL Urine Ketones 15 H (Negative) mg/dL Urine Blood Negative (Negative) Urine Nitrite Negative (Negative) Urine Bilirubin Small H (Negative) Urine Urobilinogen Normal (Normal) mg/dL Ur Leukocyte Esterase Trace H (Negative) Urine Microscopic RBC 0-3 (0-3) per hpf Urine Microscopic WBC 0-3 (0-3) per hpf Ur Squamous Epith Cells Many H (None-Few) per lpf Urine Bacteria None Seen (None-Few) per hpf Hyaline Casts None Seen (None-Few) per lpf Ur Culture Indicated? YES A (NO) Urine Opiates Screen Negative (Smuhya=803) ng/mL Ur Barbiturates Screen Negative (Perqzt=993) ng/mL Carbamazepine 8.1 (4.0-12.0) mcg/mL Ur Phencyclidine Scrn Negative (Cutoff=25) ng/mL Ur Amphetamines Screen Negative (Xnoquz=9861) ng/mL U Benzodiazepines Scrn Negative (Dlxawm=549) ng/mL Urine Cocaine Screen Negative (Cutoff= 300) ng/mL U Marijuana (THC) Screen Negative (Cutoff = 50) ng/mL 04/01/17 04/01/17 Range/Units 11:09 11:09 WBC (4.3-11.1) K/mcL RBC (3.82-4.97) M/mcL Hgb (11.5-15.4) g/dL Hct (35.3-44.9) % MCV (83.0-100.0) fL MCH (28.0-33.3) pg MCHC (31.6-35.5) g/dL RDW (11.5-14.5) % Plt Count (140-400) K/mcL MPV (9.4-12.4) fL Immature Gran % (0-4) % Seg Neutrophils % % Lymphocytes % % Monocytes % % Eosinophils % % Basophils % % Neutrophils # (1.6-8.9) K/mcL Lymphocytes # (0.6-4.6) K/mcL Monocytes # (0.0-1.3) K/mcL Eosinophils # (0.0-0.6) K/mcL Basophils # (0.0-0.2) K/mcL Platelet Estimate (Normal) Sodium (136-145) mEq/L Potassium (3.5-4.5) mEq/L Chloride (98-109) mEq/L Carbon Dioxide (19-29) mEq/L BUN (7-20) mg/dL Creatinine (0.57-1.11) mg/dL Est GFR ( Amer) (> 60) Est GFR (Non-Af Amer) (> 60) BUN/Creatinine Ratio (6-26) Glucose (70-99) mg/dL Calculated Osmolality (280-300) Lactic Acid 2.4 H (0.5-2.2) mmol/L Calcium (8.6-10.8) mg/dL Phosphorus 3.6 (2.3-4.7) mg/dL Magnesium 2.5 (1.6-2.6) mg/dL Total Bilirubin (0.2-1.2) mg/dL Direct Bilirubin (0.0-0.5) mg/dL Indirect Bilirubin (0.0-1.2) mg/dL AST (5-34) Units/L ALT (0-55) Units/L Alkaline Phosphatase (38-126) Units/L Troponin I (0-0.03) ng/mL Serum Total Protein (6.0-8.3) g/dL Albumin (3.5-5.0) g/dL Globulin (2.4-3.5) g/dL Albumin/Globulin Ratio (1.1-2.2) Urine Color (Yellow) Urine Clarity (Clear) Urine pH (5.0-8.0) pH Units Ur Specific [place] (1.010-1.025) Urine Protein (Neg-Trace) mg/dL Urine Glucose (UA) (Normal) mg/dL Urine Ketones (Negative) mg/dL Urine Blood (Negative) Urine Nitrite (Negative) Urine Bilirubin (Negative) Urine Urobilinogen (Normal) mg/dL Ur Leukocyte Esterase (Negative) Urine Microscopic RBC (0-3) per hpf Urine Microscopic WBC (0-3) per hpf Ur Squamous Epith Cells (None-Few) per lpf Urine Bacteria (None-Few) per hpf Hyaline Casts (None-Few) per lpf Ur Culture Indicated? (NO) Urine Opiates Screen (Uwprik=500) ng/mL Ur Barbiturates Screen (Wdelrb=646) ng/mL Carbamazepine (4.0-12.0) mcg/mL Ur Phencyclidine Scrn (Cutoff=25) ng/mL Ur Amphetamines Screen (Eegges=1777) ng/mL U Benzodiazepines Scrn (Deemzz=601) ng/mL Urine Cocaine Screen (Cutoff= 300) ng/mL U Marijuana (THC) Screen (Cutoff = 50) ng/mL - Impressions ITS Impressions Chest X-Ray 04/01/17 08:55 IMPRESSION: 1. Opacities in the left mid to upper lung are suspicious for pneumonia. 2. Diffuse osteopenia. 3. Colonic dilation and distention similar to prior exam. D/ / 04/01/2017 10:12:21 Fabiola Goldberg MD / abraham Interpreting Provider: Fabiola Goldberg MD - Diagnostic Studies Chest x-ray Additional comments: Chest X-Ray 04/01/17 08:55
--- NOTE | 2017-04-01 12:51 | Event Note ---
Date of Encounter: 04/01/17 Time of Encounter: 12:44 Patient seen and examined with nurse practitioner. Patient presents with aspiration pneumonia, severe dehydration, hypernatremia from decrease free water intake, toxic metabolic encephalopathy. She was just here in the hospital 10 days ago. She will be treated for healthcare associated pneumonia with vancomycin and Zosyn. Keep NPO. Speech evaluated their last admission and she was supposed to be on pureed Diet. Once she has more awake and able to tolerate liquids she was need to get free water 250 mls with each meal. For now she will be on D5 half normal saline. She had received 1.5 L of normal saline for volume. Goals of care need to be discussed with power of tax attorney. She has a legal guardian which is a state and she is currently full code according to caregivers.
[2017-04-01] MEDS ORDERED: Vancomycin 750 MG in D5% in Water 250 ML IVPB SCH (13:00)
[2017-04-01] MEDS: *HR* Heparin 5,000 UNIT/ML VIAL SQ SCH ×2 (13:55→21:21)
[2017-04-01] MEDS: D5% in 0.45% NACL 1,000 ML IVC SCH ×2 (13:55→23:00)
[2017-04-01] MEDS ORDERED: Vancomycin 750 MG in D5% in Water 250 ML IVPB ONE (15:00)
[2017-04-01] MEDS: Piperacillin/Tazobactam 3.375 GM in D5% in Water (Mini-Bag+) 100 ML IVPB SCH ×2 (15:01→21:30)
[2017-04-01] MEDS: Ipratropium/Albuterol Neb 3 ML IH SCH ×3 (15:21→22:19)
[2017-04-01] MEDS: Ciprofloxacin OPTH Soln 2.5 ML BOTTLE BOTH EYES SCH ×2 (15:33→21:23)
[2017-04-01] MEDS ORDERED: Ciprofloxacin OPTH Soln 2.5 ML BOTTLE RIGHT EYE SCH (16:00)
[2017-04-01] MEDS: Budesonide/Formoterol 160/4.5 MDI IH SCH (22:19)
[2017-04-02] MEDS: Ciprofloxacin OPTH Soln 2.5 ML BOTTLE BOTH EYES SCH ×6 (01:02→22:22)
[2017-04-02] MEDS ORDERED: *HR* LORazepam 2 MG/ML VIAL IVP ONE (01:41)
[2017-04-02] MEDS: Ipratropium/Albuterol Neb 3 ML IH SCH ×4 (03:55→22:36)
[2017-04-02 04:50] LABS: BUN/Creatinine Ratio 67 (6-26); Carbon Dioxide 24 mEq/L (19-29); Chloride 118 mEq/L (98-109); Glucose 109 mg/dL (70-99); Osmolality,Calculated 315 (280-300); Potassium 3.2 mEq/L (3.5-4.5); Sodium 146 mEq/L (136-145); eGFR For African Americans > 60 (> 60); eGFR For Non-African Americans > 60 (> 60)
[2017-04-02 04:54] LABS: Blood Urea Nitrogen 47 mg/dL (7-20); Calcium 7.5 mg/dL (8.6-10.8)
[2017-04-02] MEDS: Piperacillin/Tazobactam 3.375 GM in D5% in Water (Mini-Bag+) 100 ML IVPB SCH ×2 (06:22→12:59)
[2017-04-02] MEDS: *HR* Heparin 5,000 UNIT/ML VIAL SQ SCH ×3 (06:23→13:54)
[2017-04-02 07:00] LABS: Hematocrit 26.8 % (35.3-44.9); Immature Platelets 8.7 % (1.1-6.1); Mean Corpuscular HGB Conc 32.5 g/dL (31.6-35.5); Mean Corpuscular Hemoglobin 30.7 pg (28.0-33.3); Mean Corpuscular Volume 94.7 fL (83.0-100.0); Mean Platelet Volume 11.4 fL (9.4-12.4); Platelet Count 204 K/mcL (140-400); Red Blood Count 2.83 M/mcL (3.82-4.97)
[2017-04-02 07:05] LABS: Hemoglobin 8.7 g/dL (11.5-15.4)
[2017-04-02 07:54] LABS: Lymphocytes # 2.7 K/mcL (0.6-4.6); Monocytes # 0.3 K/mcL (0.0-1.3); Neutrophils # 12.1 K/mcL (1.6-8.9); Platelet Estimate Normal (Normal)
[2017-04-02] MEDS: Budesonide/Formoterol 160/4.5 MDI IH SCH (10:21)
[2017-04-02] MEDS ORDERED: Levofloxacin 750 MG/150 ML 750 MG/150 ML BAG IVPB SCH (11:00)
[2017-04-02] MEDS ORDERED: D5% in 0.45% NACL w KCl 20 MEQ/1,000 ML MLS IVC SCH (11:45)
[2017-04-02] MEDS: *HR* FentaNYL PATCH 25 MCG PATCH TD SCH (13:00)
--- NOTE | 2017-04-02 14:01 | Internal Med Progress Note ---
Date of Encounter: 04/02/17 Time of Encounter: 10:30 - Assessment and plan (1) Anemia Current Visit: Yes Status: Suspected Assessment and plan: Hemoglobin 8.7 today. Patient having dark colored stools. We will check stool for occult blood. Also check iron, folic acid and B12 levels. Qualifiers: Anemia type: other cause Other causes of anemia: acute posthemorrhagic Qualified Code(s): D62 - Acute posthemorrhagic anemia (2) Diarrhea Current Visit: Yes Status: Acute Assessment and plan: C. difficile was negative. Will check stools for occult blood. Also check GI panel. If negative, we will start Imodium. Qualifiers: Diarrhea type: unspecified type Qualified Code(s): R19.7 - Diarrhea, unspecified (3) Conjunctivitis Current Visit: Yes Status: Acute Assessment and plan: Treating with ciprofloxacin eyedrops Qualifiers: Conjunctivitis type: acute Acute conjunctivitis type: bacterial Laterality: bilateral Qualified Code(s): H10.33 - Unspecified acute conjunctivitis, bilateral (4) Dehydration Current Visit: Yes Status: Acute Assessment and plan: Improving with IV hydration. Sodium is 145. (5) Failure to thrive Current Visit: Yes Status: Acute Assessment and plan: Consult older adult social work specialist, physical therapy evaluation. Qualifiers: Failure to thrive age range: in adult Qualified Code(s): R62.7 - Adult failure to thrive (6) HCAP (healthcare-associated pneumonia) Current Visit: Yes Status: Acute Assessment and plan: On broad-spectrum antibiotics. Blood cultures are negative. (7) Pneumonia Current Visit: Yes Status: Suspected Assessment and plan: Pneumonia and likely from aspiration. Also concern for healthcare associated pneumonia with MRSA. On broad-spectrum antibiotics. Follow culture results. Continue O2 supplementation. Qualifiers: Pneumonia type: aspiration pneumonia Laterality: left Lung location: upper lobe of lung Qualified Code(s): J69.0 - Pneumonitis due to inhalation of food and vomit (8) Sepsis Current Visit: Yes Status: Acute Assessment and plan: WBC count is improving. We will recheck lactate. Qualifiers: Sepsis type: sepsis due to unspecified organism Qualified Code(s): A41.9 - Sepsis, unspecified organism - Subjective Interval history: Patient is somnolent but awakes and is confused. Does not follow commands well. No reported fever since admission. On O2 supplementation with oxygen mask at 4 L/m. Patient has been having a lot of diarrhea with dark colored stools. - Constitutional Vitals: Temp Pulse Resp BP Pulse Ox 98.1 F 74 18 116/66 94 04/02/17 11:13 04/02/17 11:13 04/02/17 11:13 04/02/17 06:40 04/02/17 11:13 General appearance: Present: cachectic, A&O X 0, underweight. Absent: answers questions appropriately - Respiratory Respiratory exam: Present: CTAB. Absent: accessory muscle use, rales, rhonchi, wheezes - Cardiovascular Cardiovascular exam: Present: RRR, +S1, +S2. Absent: diastolic murmur, gallop, rubs, systolic murmur - Extremities Exam Extremities exam: Present: warm, radial pulses palpable and symetrical. Absent : calf tenderness, cyanotic, pedal edema - Neurological Exam Neurological exam: Absent: facial droop, speech deficit Additional comments: Unable to perform neurologic examination is patient not following commands Internal Medicine: Result - Labs CBC & Chem 7: 04/02/17 06:29 04/02/17 06:29 Labs: Short CBC 04/02/17 Range/Units 06:29 WBC 15.1 H (4.3-11.1) K/mcL Hgb 8.7 L D (11.5-15.4) g/dL Hct 26.8 L (35.3-44.9) % Plt Count 204 (140-400) K/mcL Neutrophils # 12.1 H (1.6-8.9) K/mcL BMP 04/01/17 04/02/17 04/02/17 19:06 00:26 04:07 Sodium 150 H 149 H 146 H Potassium 3.2 L Chloride 118 H Carbon Dioxide 24 BUN 47 H D Creatinine 0.70 Glucose 109 H Calcium 7.5 L D 04/02/17 06:29 Sodium 145 Potassium Chloride Carbon Dioxide BUN Creatinine Glucose Calcium - VTE Documentation of Mechanical Device: Graduated compression elastic hosiery Consult Discharge Plan - Plan Referrals: Dawit Baez MD [Primary Care Provider] - (web request 04/02/17) - Attending Attestation This document has been at least partially created by [employer] recognition technology by Dr. Waddell. Errors in grammar, wording or other phrases may exist. If errors are found after the documentation is signed, they will be addressed individually in the addendum section of this document when appropriate.
[2017-04-02 15:04] LABS: Eosinophils # 0.3 K/mcL (0.0-0.6); Hematocrit 31.7 % (35.3-44.9); Hemoglobin 9.9 g/dL (11.5-15.4); Immature Platelets 8.6 % (1.1-6.1); Mean Corpuscular HGB Conc 31.2 g/dL (31.6-35.5); Mean Corpuscular Hemoglobin 30.2 pg (28.0-33.3); Mean Corpuscular Volume 96.6 fL (83.0-100.0); Mean Platelet Volume 11.2 fL (9.4-12.4); Platelet Count 224 K/mcL (140-400); Red Blood Count 3.28 M/mcL (3.82-4.97); Red Cell Distribution Width 12.8 % (11.5-14.5)
[2017-04-02 15:27] LABS: Lymphocytes # 1.3 K/mcL (0.6-4.6); Monocytes # 0.3 K/mcL (0.0-1.3); Neutrophils # 13.9 K/mcL (1.6-8.9); Platelet Estimate Normal (Normal)
[2017-04-02 16:04] LABS: Adenovirus F 40/41 PCR Not detected (Not detect); Astrovirus PCR Not detected (Not detect); C.difficile Toxin A/B by PCR Not detected (Not detect); Campylobacter by PCR Not detected (Not detect); Cryptosporidium by PCR Not detected (Not detect); Cyclospora cayetanensis PCR Not detected (Not detect); E. coli O157 by PCR Not detected (Not detect); Entamoeba histolytica PCR Not detected (Not detect); Enteroaggregative E.coli(EAEC) ***DETECTED*** (Not detect); Enteropathogenic E.coli(EPEC) Not detected (Not detect); Enterotoxigenic E.coli (ETEC) Not detected (Not detect); Giardia lamblia PCR Not detected (Not detect); Norovirus GI/GII PCR Not detected (Not detect); Plesiomonas shigelloides PCR Not detected (Not detect); Rotavirus A PCR Not detected (Not detect); Salmonella PCR Not detected (Not detect); Sapovirus PCR Not detected (Not detect); Shig/EnteroinvasiveE coli EIEC Not detected (Not detect); Shigalike tox-prod E coli STEC Not detected (Not detect); Vibrio PCR Not detected (Not detect); Vibrio cholerae PCR Not detected (Not detect); Yersinia enterocolitica PCR Not detected (Not detect)
[2017-04-02] MEDS: Vancomycin 1,000 MG in D5% in Water 250 ML IVPB SCH (17:36)
[2017-04-02] MEDS: *HR* Morphine 2 MG/ML SYRINGE IVP PRN (17:37)
[2017-04-02] MEDS ORDERED: Acetaminophen IV 1,000 MG/100 ML INFUS..BTL IVPB ONE (17:50)
[2017-04-02] MEDS ORDERED: D5% in 0.2% NACL w KCl 1,000 ML IVC SCH (18:00)
[2017-04-02] MEDS ORDERED: OLANZapine 10 MG TAB.RAPDIS PO SCH (21:00)
[2017-04-02] MEDS: Budesonide Neb 0.5 MG/2 ML IH SCH (22:36)
--- NOTE | 2017-04-02 23:41 | Electrocardiograph Report ---
[address] [address] Test Date: 2017-04-01 Pat Name: Cheyenne Smith Department: 104 Room: 2A13 Gender: F [employer] Clerk: : [id number] Requested By: Jonathan Ramon Order Number: [id number] Reading MD: Bailey Arvizu Measurements Intervals [place] Rate: 101 P: 53 OR: 229 QRS: -33 QRSD: 89 T: 50 QT: 287 QTc: 345 Interpretive Statements SINUS TACHYCARDIA WITH FIRST DEGREE AV BLOCK MARKED LEFT AXIS DEVIATION NONSPECIFIC ST \T\ T-WAVE ABNORMALITY Electronically Signed On 04-02-2017 23:39:59 EDT by Bailey Arvizu
[2017-04-03] MEDS: Piperacillin/Tazobactam 3.375 GM in D5% in Water (Mini-Bag+) 100 ML IVPB SCH ×4 (00:45→17:17)
[2017-04-03] MEDS: Ciprofloxacin OPTH Soln 2.5 ML BOTTLE BOTH EYES SCH ×7 (00:49→23:38)
[2017-04-03] MEDS: Haloperidol Lactate 5 MG/ML VIAL IVP PRN (01:49)
[2017-04-03] MEDS: Ipratropium/Albuterol Neb 3 ML IH SCH ×4 (03:45→19:55)
[2017-04-03 04:54] LABS: Hematocrit 29.7 % (35.3-44.9); Hemoglobin 9.5 g/dL (11.5-15.4); Mean Corpuscular Hemoglobin 30.4 pg (28.0-33.3); Mean Corpuscular Volume 95.2 fL (83.0-100.0); Mean Platelet Volume 11.8 fL (9.4-12.4); Platelet Count 197 K/mcL (140-400); Red Blood Count 3.12 M/mcL (3.82-4.97); Red Cell Distribution Width 12.8 % (11.5-14.5)
[2017-04-03 05:09] LABS: % Iron Saturation 10 % (15-50); BUN/Creatinine Ratio 27 (6-26); Calcium 7.5 mg/dL (8.6-10.8); Carbon Dioxide 20 mEq/L (19-29); Chloride 115 mEq/L (98-109); Glucose 77 mg/dL (70-99); Iron 12 mcg/dL (50-170); Osmolality,Calculated 297 (280-300); Potassium 3.5 mEq/L (3.5-4.5); Sodium 143 mEq/L (136-145); Transferrin 83 mg/dL (180-382); eGFR For African Americans > 60 (> 60); eGFR For Non-African Americans > 60 (> 60)
[2017-04-03 05:10] LABS: Blood Urea Nitrogen 19 mg/dL (7-20)
[2017-04-03] MEDS: Acetaminophen IV 1,000 MG/100 ML INFUS..BTL IV PRN ×2 (05:21→23:25)
[2017-04-03 05:24] LABS: Lymphocytes # 1.6 K/mcL (0.6-4.6); Monocytes # 1.9 K/mcL (0.0-1.3); Neutrophils # 12.1 K/mcL (1.6-8.9); Platelet Estimate Normal (Normal)
[2017-04-03] MEDS: D5% in 0.2% NACL w KCl 1,000 ML IVC SCH ×2 (05:27→16:25)
[2017-04-03 05:53] LABS: Ferritin 467 ng/ml (5-204)
--- NOTE | 2017-04-03 09:17 | Palliative - Consult Note ---
Date of Encounter: 04/03/17 Time of Encounter: 09:15 - Assessment and Plan (1) Restlessness and agitation Current Visit: Yes Status: Acute Assessment and plan: Currently on Haloperidol 2mg every 6hr. PRN. She is currently NPO and unable to take her usual psych medications. Again - will discuss with guardian. (2) Chronic pain Current Visit: Yes Status: Acute Assessment and plan: Continue current Fentanyl patch as per home dose. She currently has low dose Morphine (1mg) for pain. She appears quite uncomfortable, but cannot rate pain. Attempting to reach guardian this am to discuss. May increase medication to improve her comfort after discussing with guardian. Qualifiers: Chronic pain type: other chronic pain Qualified Code(s): G89.29 - Other chronic pain (3) Therapeutic opioid-induced constipation (OIC) Current Visit: Yes Status: Acute Assessment and plan: Patient has history of chronic constipation/ileus and probably opioid induced constipation. She had multiple loose stools shortly after admission, and currently has rectal tube in place. Will monitor closely. From last discharge a few weeks ago, appears she was sent out on Senokot and Lactulose. (4) Counseling regarding advanced care planning and goals of care Current Visit: Yes Status: Acute Assessment and plan: Spoke with pt guardian, Sarahy Goldberg re: goals of care. Patient DNR-CC paperwork has been completed and approval letter from [employer] in pt file. DNRCC form faxed to guardian's office per request. Sarahy requests [facility] referral - she has to coordinate enrollment. Guardian will be out of town all day tomorrow but can be available Saturday. Plan to work on comfort medications here while admitted and d/c on Saturday with [facility]. D/W Dr. Waddell. (5) Aspiration pneumonia Current Visit: Yes Status: Acute Qualifiers: Aspiration pneumonia type: unspecified Laterality: left Lung location: upper lobe of lung Qualified Code(s): J69.0 - Pneumonitis due to inhalation of food and vomit (6) Debility Current Visit: Yes Status: Acute (7) Protein calorie malnutrition Current Visit: Yes Status: Acute Palliative-CN HPI - Data of Consult Consult date: 04/03/17 Requesting Physician: Donovan Waddell MD Primary Care Provider: Dawit Baez MD - Consult Narrative History of present illness: Ms. Smith is a 87 year old female who has history of schizophrenia/MRDD and is a resident of a [facility] home. She was admitted with Altered mental status. She has history of chronic pain syndrome and has been on pain meds correction, including Fentanyl patch and Percocet. She also has history of ileus and constipation possibly r/t opioid use. She has also has suspected aspiration pneumonia and is currently being treated for another aspiration event. CXR on admission demonstrated MICK opacity, she also had fever and leukocytosis with WBC 26.2. Today that has decreased to 15.5, however she still had fever of 100.6 last night. Upon my visit, she is restless and agitated. She is on oxygen at 5 LPM. Resp are shallow with a rate of 30. She smiles when examined, but does not follow any commands or answer questions. No visitors are present. Patient has guardian from [facility], Sarahy Goldberg ( [phone], ext [phone]) in [facility]. CC: Donovan Waddell MD Past Med Surg Social Fam HX - Past Medical History Medical history: COPD, GERD, osteoporosis, other Psychiatric history: schizophrenia - Past Surgical History Surgical History: colostomy - Social History Smoking Status: Unknown if ever smoked Smokeless Tobacco Status: No Alcohol use: unknown Drug use: unknown - Family History Mother Family Member Ethnicity: Non- Living Status: Father Family Member Ethnicity: Non- Living Status: Brother Family Member Ethnicity: Non- Living Status: Still Living Sister Family Member Ethnicity: Non- Living Status: Still Living Medications and Allergies Budesonide Neb [Pulmicort Neb] 0.5 mg IH BIDR 04/29/16 [History] Calcium Carbonate/Vitamin D3 [Oyster Shell 500-Vit D3 200 Tb] 1 tab PO BID 04/29 [History] Famotidine [Pepcid] 20 mg PO HS 04/29/16 [History] Ferrous Sulfate [Iron Supplement] 325 mg PO BID 04/29/16 [History] Multivit-Min/FA/Lycopen/Lutein [Certavite Sr-Antioxidant Tab] 1 tab PO DAILY 01/10 [History] OLANZapine [Zyprexa Zydis] 10 mg PO HS 04/29/16 [History] Raloxifene [Evista] 60 mg PO DAILY 04/29/16 [History] carBAMazepine [Tegretol] 200 mg PO BID 04/29/16 [History] carBAMazepine [Tegretol] 400 mg PO HS 04/29/16 [History] Mirtazapine [Remeron] 22.5 mg PO HS 02/12/17 [History] Ipratropium/Albuterol Neb [Duoneb] 3 ml IH Q6HR 03/16/17 [History] Oxycodone HCl/Acetaminophen [Percocet 5-325 mg Tablet] 1 each PO BID #30 tablet 03/19/17 [Rx] Albuterol Neb [Proventil Neb] 2.5 mg IH Q6H PRN 04/01/17 [History] Bismuth Subsalicylate [Pepto-Bismol] 30 ml PO Q4H PRN 04/01/17 [History] GuaiFENesin/Dextromethorphan [Robitussin/DM] 10 ml PO Q4H PRN 04/01/17 [History] HYDROcodone/Acet 5/325 mg [[place] 5-325 mg] 1 tab PO Q4H PRN 04/01/17 [History] Mag Hydrox/Al Hydrox/Simeth [Masanti Liquid] 15 ml PO DAILY PRN 04/01/17 [ History] Magnesium Hydroxide [Milk of Magnesia] 30 ml PO DAILY PRN 04/01/17 [History] Phenol/Glycerin [Chloraseptic Max [place]] 1 spray MM Q2H PRN 04/01/17 [History] Pseudoephedrine [Sudafed] 30 mg PO Q12H PRN 04/01/17 [History] Vits A and D/White Pet/Lanolin [A and D Ointment] 1 appl TP DAILY PRN 04/01/17 [ History] fentaNYL [Fentanyl] 25 mcg TP Q48H 04/01/17 [History] Allergies tb skin test Allergy (Uncoded 05/30/16 08:08) See Comments ROS unobtainable: due to mental status Palliative Care-Exam - Constitutional Vitals: Temp Pulse Resp BP Pulse Ox 99.5 F 120 18 139/80 91 04/03/17 06:47 04/03/17 06:47 04/03/17 06:47 04/03/17 03:36 04/03/17 06:47 General appearance: Present: mild distress - Head Head Exam: Present: normal inspection, normocephalic - Eye Eye exam: Present: normal appearance, PERRL - Respiratory Additional comments: Lungs with diminished breath sounds, no rhonchi appreciated, however, pt with shallow inspiratory effort - Cardiovascular Cardiovascular exam: Present: +S1, +S2 - Rectal Additional comments: Rectal tube in place with brownish green stool - Extremities Exam Extremities exam: Present: normal capillary refill - Neurological Exam Neurological exam: Present: alert Additional comments: Awake and restless, unable to communicate verbally at this time. Does not follow commands. Smiles when spoke to - Skin Skin exam: Present: dry, pallor, warm Internal Medicine - CN: Reslt - Labs CBC & Chem 7: 04/03/17 04:36 04/03/17 04:36 Labs: Short CBC 04/01/17 04/02/17 04/02/17 Range/Units 19:06 00:26 01:06 WBC (4.3-11.1) K/mcL RBC (3.82-4.97) M/mcL Hgb (11.5-15.4) g/dL Hct (35.3-44.9) % MCV (83.0-100.0) fL MCH (28.0-33.3) pg MCHC (31.6-35.5) g/dL RDW (11.5-14.5) % Plt Count (140-400) K/mcL MPV (9.4-12.4) fL Immature Gran % Seg Neutrophils % % Band Neutrophils % (0-4) % Lymphocytes % % Monocytes % % Eosinophils % % Basophils % Neutrophils # (1.6-8.9) K/mcL Lymphocytes # (0.6-4.6) K/mcL Monocytes # (0.0-1.3) K/mcL Eosinophils # (0.0-0.6) K/mcL Basophils # Platelet Estimate (Normal) Immature Plt Fraction (1.1-6.1) % Sodium 150 H 149 H (136-145) mEq/L Potassium (3.5-4.5) mEq/L Chloride (98-109) mEq/L Carbon Dioxide (19-29) mEq/L BUN (7-20) mg/dL Creatinine (0.57-1.11) mg/dL Est GFR ( Amer) (> 60) Est GFR (Non-Af Amer) (> 60) BUN/Creatinine Ratio (6-26) Glucose (70-99) mg/dL POC Glucose 88 (58-89) Calculated Osmolality (280-300) Lactic Acid (0.5-2.2) mmol/L Calcium (8.6-10.8) mg/dL Iron (50-170) mcg/dL % Saturation (15-50) % Transferrin (180-382) mg/dL Ferritin (5-204) ng/ml Vitamin B12 (213-816) pg/mL Stool Occult Blood (Negative) Stl C. cayetanensis PCR (Not detect) Stool Rotavirus A PCR (Not detect) Stl Adenov F 40/41 PCR (Not detect) Stool Astrovirus (PCR) (Not detect) Stool Campylobacter PCR (Not detect) Stl C. diff Tox B Gene (Negative) Stl C. diff Tox A/B PCR (Not detect) Stool Cryptosporidium PCR (Not detect) Stl Sh Tox Pr E STEC PCR (Not detect) Stool E coli O157 PCR (Not detect) Stl Enterotoxigenic E PCR (Not detect) Stool EPEC (PCR) (Not detect) Stool EAEC (PCR) (Not detect) Stl E. histolytica PCR (Not detect) Stool Giardia Lamblia PCR (Not detect) Stool Salmonella PCR (Not detect) Stool Sapovirus (PCR) (Not detect) Stl P. shigelloides PCR (Not detect) Stl Shigella/EIEC PCR (Not detect) St Y.enterocolitica PCR (Not detect) Stool Vibrio (PCR) (Not detect) Stl Vibrio cholerae PCR (Not detect) Stl Norovirus GI/GII PCR (Not detect) Stl GI Panel (PCR) Com Random Vancomycin mcg/mL Specimen Rejected 04/02/17 04/02/17 04/02/17 Range/Units 04:07 04:07 04:45 WBC (4.3-11.1) K/mcL RBC (3.82-4.97) M/mcL Hgb (11.5-15.4) g/dL Hct (35.3-44.9) % MCV (83.0-100.0) fL MCH (28.0-33.3) pg MCHC (31.6-35.5) g/dL RDW (11.5-14.5) % Plt Count (140-400) K/mcL MPV (9.4-12.4) fL Immature Gran % Seg Neutrophils % % Band Neutrophils % (0-4) % Lymphocytes % % Monocytes % % Eosinophils % % Basophils % Neutrophils # (1.6-8.9) K/mcL Lymphocytes # (0.6-4.6) K/mcL Monocytes # (0.0-1.3) K/mcL Eosinophils # (0.0-0.6) K/mcL Basophils # Platelet Estimate (Normal) Immature Plt Fraction (1.1-6.1) % Sodium 146 H (136-145) mEq/L Potassium 3.2 L (3.5-4.5) mEq/L Chloride 118 H (98-109) mEq/L Carbon Dioxide 24 (19-29) mEq/L BUN 47 H D (7-20) mg/dL Creatinine 0.70 (0.57-1.11) mg/dL Est GFR ( Amer) > 60 (> 60) Est GFR (Non-Af Amer) > 60 (> 60) BUN/Creatinine Ratio 67 H (6-26) Glucose 109 H (70-99) mg/dL POC Glucose (58-89) Calculated Osmolality 315 H (280-300) Lactic Acid (0.5-2.2) mmol/L Calcium 7.5 L D (8.6-10.8) mg/dL Iron (50-170) mcg/dL % Saturation (15-50) % Transferrin (180-382) mg/dL Ferritin (5-204) ng/ml Vitamin B12 (213-816) pg/mL Stool Occult Blood (Negative) Stl C. cayetanensis PCR (Not detect) Stool Rotavirus A PCR (Not detect) Stl Adenov F 40/41 PCR (Not detect) Stool Astrovirus (PCR) (Not detect) Stool Campylobacter PCR (Not detect) Stl C. diff Tox B Gene Negative (Negative) Stl C. diff Tox A/B PCR (Not detect) Stool Cryptosporidium PCR (Not detect) Stl Sh Tox Pr E STEC PCR (Not detect) Stool E coli O157 PCR (Not detect) Stl Enterotoxigenic E PCR (Not detect) Stool EPEC (PCR) (Not detect) Stool EAEC (PCR) (Not detect) Stl E. histolytica PCR (Not detect) Stool Giardia Lamblia PCR (Not detect) Stool Salmonella PCR (Not detect) Stool Sapovirus (PCR) (Not detect) Stl P. shigelloides PCR (Not detect) Stl Shigella/EIEC PCR (Not detect) St Y.enterocolitica PCR (Not detect) Stool Vibrio (PCR) (Not detect) Stl Vibrio cholerae PCR (Not detect) Stl Norovirus GI/GII PCR (Not detect) Stl GI Panel (PCR) Com Random Vancomycin 8.0 mcg/mL Specimen Rejected 04/02/17 04/02/17 04/02/17 Range/Units 05:09 05:52 06:29 WBC (4.3-11.1) K/mcL RBC 2.83 L (3.82-4.97) M/mcL Hgb (11.5-15.4) g/dL Hct (35.3-44.9) % MCV 94.7 (83.0-100.0) fL MCH 30.7 (28.0-33.3) pg MCHC 32.5 (31.6-35.5) g/dL RDW 13.0 (11.5-14.5) % Plt Count (140-400) K/mcL MPV 11.4 (9.4-12.4) fL Immature Gran % Seg Neutrophils % 76.0 % Band Neutrophils % 4.0 (0-4) % Lymphocytes % 18.0 % Monocytes % 2.0 % Eosinophils % % Basophils % Neutrophils # (1.6-8.9) K/mcL Lymphocytes # 2.7 (0.6-4.6) K/mcL Monocytes # 0.3 (0.0-1.3) K/mcL Eosinophils # (0.0-0.6) K/mcL Basophils # Platelet Estimate Normal (Normal) Immature Plt Fraction 8.7 H (1.1-6.1) % Sodium (136-145) mEq/L Potassium (3.5-4.5) mEq/L Chloride (98-109) mEq/L Carbon Dioxide (19-29) mEq/L BUN (7-20) mg/dL Creatinine (0.57-1.11) mg/dL Est GFR ( Amer) (> 60) Est GFR (Non-Af Amer) (> 60) BUN/Creatinine Ratio (6-26) Glucose (70-99) mg/dL POC Glucose 133 H (58-89) Calculated Osmolality (280-300) Lactic Acid (0.5-2.2) mmol/L Calcium (8.6-10.8) mg/dL Iron (50-170) mcg/dL % Saturation (15-50) % Transferrin (180-382) mg/dL Ferritin (5-204) ng/ml Vitamin B12 (213-816) pg/mL Stool Occult Blood (Negative) Stl C. cayetanensis PCR (Not detect) Stool Rotavirus A PCR (Not detect) Stl Adenov F 40/41 PCR (Not detect) Stool Astrovirus (PCR) (Not detect) Stool Campylobacter PCR (Not detect) Stl C. diff Tox B Gene (Negative) Stl C. diff Tox A/B PCR (Not detect) Stool Cryptosporidium PCR (Not detect) Stl Sh Tox Pr E STEC PCR (Not detect) Stool E coli O157 PCR (Not detect) Stl Enterotoxigenic E PCR (Not detect) Stool EPEC (PCR) (Not detect) Stool EAEC (PCR) (Not detect) Stl E. histolytica PCR (Not detect) Stool Giardia Lamblia PCR (Not detect) Stool Salmonella PCR (Not detect) Stool Sapovirus (PCR) (Not detect) Stl P. shigelloides PCR (Not detect) Stl Shigella/EIEC PCR (Not detect) St Y.enterocolitica PCR (Not detect) Stool Vibrio (PCR) (Not detect) Stl Vibrio cholerae PCR (Not detect) Stl Norovirus GI/GII PCR (Not detect) Stl GI Panel (PCR) Com Random Vancomycin mcg/mL Specimen Rejected Miscellaneous 04/02/17 04/02/17 04/02/17 Range/Units 06:29 11:14 14:14 WBC 15.8 H (4.3-11.1) K/mcL RBC 3.28 L (3.82-4.97) M/mcL Hgb 9.9 L (11.5-15.4) g/dL Hct 31.7 L (35.3-44.9) % MCV 96.6 (83.0-100.0) fL MCH 30.2 (28.0-33.3) pg MCHC 31.2 L (31.6-35.5) g/dL RDW 12.8 (11.5-14.5) % Plt Count 224 (140-400) K/mcL MPV 11.2 (9.4-12.4) fL Immature Gran % Seg Neutrophils % % Band Neutrophils % (0-4) % Lymphocytes % % Monocytes % % Eosinophils % % Basophils % Neutrophils # (1.6-8.9) K/mcL Lymphocytes # (0.6-4.6) K/mcL Monocytes # (0.0-1.3) K/mcL Eosinophils # (0.0-0.6) K/mcL Basophils # Platelet Estimate (Normal) Immature Plt Fraction 8.6 H (1.1-6.1) % Sodium 145 (136-145) mEq/L Potassium (3.5-4.5) mEq/L Chloride (98-109) mEq/L Carbon Dioxide (19-29) mEq/L BUN (7-20) mg/dL Creatinine (0.57-1.11) mg/dL Est GFR ( Amer) (> 60) Est GFR (Non-Af Amer) (> 60) BUN/Creatinine Ratio (6-26) Glucose (70-99) mg/dL POC Glucose 95 H (58-89) Calculated Osmolality (280-300) Lactic Acid (0.5-2.2) mmol/L Calcium (8.6-10.8) mg/dL Iron (50-170) mcg/dL % Saturation (15-50) % Transferrin (180-382) mg/dL Ferritin (5-204) ng/ml Vitamin B12 (213-816) pg/mL Stool Occult Blood (Negative) Stl C. cayetanensis PCR (Not detect) Stool Rotavirus A PCR (Not detect) Stl Adenov F 40/41 PCR (Not detect) Stool Astrovirus (PCR) (Not detect) Stool Campylobacter PCR (Not detect) Stl C. diff Tox B Gene (Negative) Stl C. diff Tox A/B PCR (Not detect) Stool Cryptosporidium PCR (Not detect) Stl Sh Tox Pr E STEC PCR (Not detect) Stool E coli O157 PCR (Not detect) Stl Enterotoxigenic E PCR (Not detect) Stool EPEC (PCR) (Not detect) Stool EAEC (PCR) (Not detect) Stl E. histolytica PCR (Not detect) Stool Giardia Lamblia PCR (Not detect) Stool Salmonella PCR (Not detect) Stool Sapovirus (PCR) (Not detect) Stl P. shigelloides PCR (Not detect) Stl Shigella/EIEC PCR (Not detect) St Y.enterocolitica PCR (Not detect) Stool Vibrio (PCR) (Not detect) Stl Vibrio cholerae PCR (Not detect) Stl Norovirus GI/GII PCR (Not detect) Stl GI Panel (PCR) Com Random Vancomycin mcg/mL Specimen Rejected 04/02/17 04/02/17 04/02/17 Range/Units 14:15 14:36 14:36 WBC (4.3-11.1) K/mcL RBC (3.82-4.97) M/mcL Hgb (11.5-15.4) g/dL Hct (35.3-44.9) % MCV (83.0-100.0) fL MCH (28.0-33.3) pg MCHC (31.6-35.5) g/dL RDW (11.5-14.5) % Plt Count (140-400) K/mcL MPV (9.4-12.4) fL Immature Gran % Seg Neutrophils % % Band Neutrophils % (0-4) % Lymphocytes % % Monocytes % % Eosinophils % % Basophils % Neutrophils # (1.6-8.9) K/mcL Lymphocytes # (0.6-4.6) K/mcL Monocytes # (0.0-1.3) K/mcL Eosinophils # (0.0-0.6) K/mcL Basophils # Platelet Estimate (Normal) Immature Plt Fraction (1.1-6.1) % Sodium (136-145) mEq/L Potassium (3.5-4.5) mEq/L Chloride (98-109) mEq/L Carbon Dioxide (19-29) mEq/L BUN (7-20) mg/dL Creatinine (0.57-1.11) mg/dL Est GFR ( Amer) (> 60) Est GFR (Non-Af Amer) (> 60) BUN/Creatinine Ratio (6-26) Glucose (70-99) mg/dL POC Glucose (58-89) Calculated Osmolality (280-300) Lactic Acid (0.5-2.2) mmol/L Calcium (8.6-10.8) mg/dL Iron (50-170) mcg/dL % Saturation (15-50) % Transferrin (180-382) mg/dL Ferritin (5-204) ng/ml Vitamin B12 177 L (213-816) pg/mL Stool Occult Blood Negative (Negative) Stl C. cayetanensis PCR Not detected (Not detect) Stool Rotavirus A PCR Not detected (Not detect) Stl Adenov F 40/41 PCR Not detected (Not detect) Stool Astrovirus (PCR) Not detected (Not detect) Stool Campylobacter PCR Not detected (Not detect) Stl C. diff Tox B Gene (Negative) Stl C. diff Tox A/B PCR Not detected (Not detect) Stool Cryptosporidium PCR Not detected (Not detect) Stl Sh Tox Pr E STEC PCR Not detected (Not detect) Stool E coli O157 PCR Not detected (Not detect) Stl Enterotoxigenic E PCR Not detected (Not detect) Stool EPEC (PCR) Not detected (Not detect) Stool EAEC (PCR) DETECTED A (Not detect) Stl E. histolytica PCR Not detected (Not detect) Stool Giardia Lamblia PCR Not detected (Not detect) Stool Salmonella PCR Not detected (Not detect) Stool Sapovirus (PCR) Not detected (Not detect) Stl P. shigelloides PCR Not detected (Not detect) Stl Shigella/EIEC PCR Not detected (Not detect) St Y.enterocolitica PCR Not detected (Not detect) Stool Vibrio (PCR) Not detected (Not detect) Stl Vibrio cholerae PCR Not detected (Not detect) Stl Norovirus GI/GII PCR Not detected (Not detect) Stl GI Panel (PCR) Com See below Random Vancomycin mcg/mL Specimen Rejected 04/02/17 04/02/17 04/02/17 Range/Units 14:39 14:50 18:05 WBC (4.3-11.1) K/mcL RBC (3.82-4.97) M/mcL Hgb (11.5-15.4) g/dL Hct (35.3-44.9) % MCV (83.0-100.0) fL MCH (28.0-33.3) pg MCHC (31.6-35.5) g/dL RDW (11.5-14.5) % Plt Count (140-400) K/mcL MPV (9.4-12.4) fL Immature Gran % Test Not Performed Seg Neutrophils % 84.0 % Band Neutrophils % 4.0 (0-4) % Lymphocytes % 8.0 % Monocytes % 2.0 % Eosinophils % 2.0 % Basophils % Test Not Performed Neutrophils # 13.9 H (1.6-8.9) K/mcL Lymphocytes # 1.3 (0.6-4.6) K/mcL Monocytes # 0.3 (0.0-1.3) K/mcL Eosinophils # 0.3 (0.0-0.6) K/mcL Basophils # Test Not Performed Platelet Estimate Normal (Normal) Immature Plt Fraction (1.1-6.1) % Sodium (136-145) mEq/L Potassium (3.5-4.5) mEq/L Chloride (98-109) mEq/L Carbon Dioxide (19-29) mEq/L BUN (7-20) mg/dL Creatinine (0.57-1.11) mg/dL Est GFR ( Amer) (> 60) Est GFR (Non-Af Amer) (> 60) BUN/Creatinine Ratio (6-26) Glucose (70-99) mg/dL POC Glucose 106 H (58-89) Calculated Osmolality (280-300) Lactic Acid (0.5-2.2) mmol/L Calcium (8.6-10.8) mg/dL Iron (50-170) mcg/dL % Saturation (15-50) % Transferrin (180-382) mg/dL Ferritin (5-204) ng/ml Vitamin B12 (213-816) pg/mL Stool Occult Blood (Negative) Stl C. cayetanensis PCR (Not detect) Stool Rotavirus A PCR (Not detect) Stl Adenov F 40/41 PCR (Not detect) Stool Astrovirus (PCR) (Not detect) Stool Campylobacter PCR (Not detect) Stl C. diff Tox B Gene (Negative) Stl C. diff Tox A/B PCR (Not detect) Stool Cryptosporidium PCR (Not detect) Stl Sh Tox Pr E STEC PCR (Not detect) Stool E coli O157 PCR (Not detect) Stl Enterotoxigenic E PCR (Not detect) Stool EPEC (PCR) (Not detect) Stool EAEC (PCR) (Not detect) Stl E. histolytica PCR (Not detect) Stool Giardia Lamblia PCR (Not detect) Stool Salmonella PCR (Not detect) Stool Sapovirus (PCR) (Not detect) Stl P. shigelloides PCR (Not detect) Stl Shigella/EIEC PCR (Not detect) St Y.enterocolitica PCR (Not detect) Stool Vibrio (PCR) (Not detect) Stl Vibrio cholerae PCR (Not detect) Stl Norovirus GI/GII PCR (Not detect) Stl GI Panel (PCR) Com Random Vancomycin mcg/mL Specimen Rejected MCV Delta 04/03/17 04/03/17 04/03/17 Range/Units 04:36 04:36 04:36 WBC 15.5 H (4.3-11.1) K/mcL RBC 3.12 L (3.82-4.97) M/mcL Hgb 9.5 L (11.5-15.4) g/dL Hct 29.7 L (35.3-44.9) % MCV 95.2 (83.0-100.0) fL MCH 30.4 (28.0-33.3) pg MCHC 32.0 (31.6-35.5) g/dL RDW 12.8 (11.5-14.5) % Plt Count 197 (140-400) K/mcL MPV 11.8 (9.4-12.4) fL Immature Gran % Seg Neutrophils % 62.0 % Band Neutrophils % 16.0 H (0-4) % Lymphocytes % 10.0 % Monocytes % 12.0 % Eosinophils % % Basophils % Neutrophils # 12.1 H (1.6-8.9) K/mcL Lymphocytes # 1.6 (0.6-4.6) K/mcL Monocytes # 1.9 H (0.0-1.3) K/mcL Eosinophils # (0.0-0.6) K/mcL Basophils # Platelet Estimate Normal (Normal) Immature Plt Fraction (1.1-6.1) % Sodium 143 (136-145) mEq/L Potassium 3.5 (3.5-4.5) mEq/L Chloride 115 H (98-109) mEq/L Carbon Dioxide 20 (19-29) mEq/L BUN 19 D (7-20) mg/dL Creatinine 0.70 (0.57-1.11) mg/dL Est GFR ( Amer) > 60 (> 60) Est GFR (Non-Af Amer) > 60 (> 60) BUN/Creatinine Ratio 27 H (6-26) Glucose 77 (70-99) mg/dL POC Glucose (58-89) Calculated Osmolality 297 (280-300) Lactic Acid 1.4 (0.5-2.2) mmol/L Calcium 7.5 L (8.6-10.8) mg/dL Iron 12 L (50-170) mcg/dL % Saturation 10 L (15-50) % Transferrin 83 L (180-382) mg/dL Ferritin 467 H (5-204) ng/ml Vitamin B12 (213-816) pg/mL Stool Occult Blood (Negative) Stl C. cayetanensis PCR (Not detect) Stool Rotavirus A PCR (Not detect) Stl Adenov F 40/41 PCR (Not detect) Stool Astrovirus (PCR) (Not detect) Stool Campylobacter PCR (Not detect) Stl C. diff Tox B Gene (Negative) Stl C. diff Tox A/B PCR (Not detect) Stool Cryptosporidium PCR (Not detect) Stl Sh Tox Pr E STEC PCR (Not detect) Stool E coli O157 PCR (Not detect) Stl Enterotoxigenic E PCR (Not detect) Stool EPEC (PCR) (Not detect) Stool EAEC (PCR) (Not detect) Stl E. histolytica PCR (Not detect) Stool Giardia Lamblia PCR (Not detect) Stool Salmonella PCR (Not detect) Stool Sapovirus (PCR) (Not detect) Stl P. shigelloides PCR (Not detect) Stl Shigella/EIEC PCR (Not detect) St Y.enterocolitica PCR (Not detect) Stool Vibrio (PCR) (Not detect) Stl Vibrio cholerae PCR (Not detect) Stl Norovirus GI/GII PCR (Not detect) Stl GI Panel (PCR) Com Random Vancomycin mcg/mL Specimen Rejected BMP 04/03/17 04:36 Sodium 143 Potassium 3.5 Chloride 115 H Carbon Dioxide 20 BUN 19 D Creatinine 0.70 Glucose 77 Calcium 7.5 L - Impressions Impressions Videofluoroscopic Swallow 04/02/17 07:00 IMPRESSION: Attempted barium swallow, terminated prematurely, as patient could not cooperate. Please see separate speech pathology report for full discussion of findings and recommendations. D/ / 04/02/2017 16:35:16 Kami Goldberg MD / abraham Interpreting Provider: Kami Goldberg MD Consult Discharge Plan - Plan Referrals: Dawit Baez MD [Primary Care Provider] - (web request 04/02/17) Palliative Quality Palliative Quality: Screen for Code Status: NA (awaiting contact of guardian), Screen for Goals of Care: NA, Screen for Pain: NA, If Pain Regimen Started, Initiate Bowel Regimen: NA, Screen for Nausea/Vomitting: NA Code Status: 04/01/17 11:59 Resuscitation Status: Active [RES] Routine Comment: Resuscitation Status: [id number] Resuscitation Status: Active [RES] Routine Comment: Resuscitation Status: DNR-Comfort Care
[2017-04-03] MEDS: *HR* Morphine 2 MG/ML SYRINGE IVP PRN (09:38)
[2017-04-03] MEDS: Budesonide Neb 0.5 MG/2 ML IH SCH ×2 (10:22→19:55)
[2017-04-03] MEDS: *HR* Morphine 2 MG/ML SYRINGE IVP SCH ×3 (12:33→23:39)
[2017-04-03] MEDS: Ketorolac 15 MG/ML VIAL IVP PRN (13:38)
[2017-04-03] MEDS: Vancomycin 1,000 MG in D5% in Water 250 ML IVPB SCH (14:54)
--- NOTE | 2017-04-03 15:27 | Electrocardiograph Report ---
[facility] Test Date: 2017-04-01 Pat Name: Cheyenne Smith Department: 104 Room: 2A13 Gender: F [employer]: : 1930 Requested By: Judith Thompson Order Number: [id number] Reading MD: Ke Hurtado MD Measurements Intervals Ault Rate: 106 P: 57 [place]: 226 QRS: -40 QRSD: 92 T: 46 QT: 322 QTc: 384 Interpretive Statements SINUS TACHYCARDIA WITH FIRST DEGREE AV BLOCK MARKED LEFT AXIS DEVIATION NONSPECIFIC ST \T\ T-WAVE ABNORMALITY Electronically Signed On 04-03-2017 15:25:53 EDT by Ke Hurtado MD
[2017-04-03] MEDS ORDERED: Valproic Acid INJ 250 MG in 0.9 % Sodium Chloride 100 ML IVPB SCH ×2 (16:00→20:00)
--- NOTE | 2017-04-03 16:10 | Internal Med Progress Note ---
Date of Encounter: 04/03/17 Time of Encounter: 16:08 - Assessment and plan (1) Sepsis Current Visit: Yes Status: Acute Assessment and plan: Possibly due to aspiration pneumonia. Leukocytosis persists. On broad- spectrum antibiotics. High risk for complications. Qualifiers: Sepsis type: sepsis due to unspecified organism Qualified Code(s): A41.9 - Sepsis, unspecified organism (2) Pneumonia Current Visit: Yes Status: Suspected Assessment and plan: On IV antibiotics for possible aspiration pneumonia. Nothing by mouth and aspiration precautions. Qualifiers: Pneumonia type: aspiration pneumonia Laterality: left Lung location: upper lobe of lung Qualified Code(s): J69.0 - Pneumonitis due to inhalation of food and vomit (3) Failure to thrive Current Visit: Yes Status: Acute Assessment and plan: Poor nutrition. Failed dysphagia evaluation as patient was unable to participate yesterday. Currently nothing by mouth. Palliative care on board and have discussed with the POA. They do not wish to place feeding tube at this time and are considering hospice. Will proceed with their wishes. For now continue supportive care and IV hydration. Qualifiers: Failure to thrive age range: in adult Qualified Code(s): R62.7 - Adult failure to thrive (4) Anemia Current Visit: Yes Status: Chronic Assessment and plan: Hemoglobin levels are currently stable. Patient has low iron levels. We will replace. Continue to monitor blood counts. Stool negative for occult blood. Patient has low iron and vitamin B12 levels. Qualifiers: Anemia type: iron deficiency Iron deficiency anemia type: inadequate dietary iron intake Qualified Code(s): D50.8 - Other iron deficiency anemias (5) Diarrhea Current Visit: Yes Status: Acute Assessment and plan: Stools positive for EAEC by PCR. Symptomatic care and treatment Qualifiers: Diarrhea type: unspecified type Qualified Code(s): R19.7 - Diarrhea, unspecified (6) Conjunctivitis Current Visit: Yes Status: Acute Assessment and plan: Treating with ciprofloxacin eyedrops Qualifiers: Conjunctivitis type: acute Acute conjunctivitis type: bacterial Laterality: bilateral Qualified Code(s): H10.33 - Unspecified acute conjunctivitis, bilateral (7) Dehydration Current Visit: Yes Status: Acute Assessment and plan: Continue IV hydration. (8) HCAP (healthcare-associated pneumonia) Current Visit: Yes Status: Acute Assessment and plan: On broad-spectrum antibiotics due to recent hospitalization. We will de- escalate antibiotics from tomorrow if cultures remain negative (9) Acute respiratory failure with hypoxia Current Visit: Yes Status: Acute (10) Protein calorie malnutrition Current Visit: Yes Status: Acute Assessment and plan: Poor nutrition. Nutrition has been consulted. Patient nothing by mouth and per guardian, no plans for feeding tube. Recommend hospice. - Subjective Interval history: Patient with underlying mental development disorder with decreased speech. Does not follow commands or answer questions. Currently on O2 supplementation with oxygen mask at 5 L/m. Also tachycardic. - Constitutional Vitals: Temp Pulse Resp BP Pulse Ox 98.4 F 111 20 127/65 98 04/03/17 15:54 04/03/17 15:54 04/03/17 15:54 04/03/17 15:54 04/03/17 15:54 General appearance: Present: cachectic, A&O X 0, underweight. Absent: answers questions appropriately - Head Head exam: Present: atraumatic, normocephalic - Eye Eye exam: Present: conjuntiva pink, sclera anicteric - ENT ENT exam: Present: mucous membranes dry - Respiratory Respiratory exam: Present: accessory muscle use, respiratory distress. Absent: rales, rhonchi, wheezes - Cardiovascular Cardiovascular exam: Present: RRR, +S1, +S2, tachycardia. Absent: diastolic murmur, gallop, rubs, systolic murmur - Extremities Exam Extremities exam: Present: warm, radial pulses palpable and symetrical. Absent : calf tenderness, cyanotic, pedal edema - Neurological Exam Neurological exam: Absent: facial droop, speech deficit Additional comments: Hyperreflexia and contractures present in all 4 extremities - Skin Skin exam: Present: dry, intact Internal Medicine: Result - Labs CBC & Chem 7: 04/03/17 04:36 04/03/17 04:36 Labs: Short CBC 04/03/17 Range/Units 04:36 WBC 15.5 H (4.3-11.1) K/mcL Hgb 9.5 L (11.5-15.4) g/dL Hct 29.7 L (35.3-44.9) % Plt Count 197 (140-400) K/mcL Neutrophils # 12.1 H (1.6-8.9) K/mcL BMP 04/03/17 04:36 Sodium 143 Potassium 3.5 Chloride 115 H Carbon Dioxide 20 BUN 19 D Creatinine 0.70 Glucose 77 Calcium 7.5 L - Impressions Impressions Videofluoroscopic Swallow 04/02/17 07:00 IMPRESSION: Attempted barium swallow, terminated prematurely, as patient could not cooperate. Please see separate speech pathology report for full discussion of findings and recommendations. D/ / 04/02/2017 16:35:16 Kami Goldberg MD / bcarter Interpreting Provider: Kami Goldberg MD - VTE Documentation of Mechanical Device: Graduated compression elastic hosiery Consult Discharge Plan - Plan Referrals: Dawit Baez MD [Primary Care Provider] - (web request 04/02/17) - Attending Attestation This document has been at least partially created by Technical Machine recognition technology by Dr. Waddell. Errors in grammar, wording or other phrases may exist. If errors are found after the documentation is signed, they will be addressed individually in the addendum section of this document when appropriate.
[2017-04-03] MEDS ORDERED: Sodium Ferric Gluconat/Sucrose 125 MG in 0.9 % Sodium Chloride 100 ML IVPB SCH (16:17)
[2017-04-03] MEDS: *HR* Heparin 5,000 UNIT/ML VIAL SQ SCH (18:12)
[2017-04-03] MEDS: Cyanocobalamin (B-12) 1,000 MCG/ML VIAL SQ SCH (18:12)
[2017-04-03] MEDS: Sodium Ferric Gluconat/Sucrose 125 MG in 0.9 % Sodium Chloride 100 ML IVPB SCH (21:23)
[2017-04-04] MEDS: Piperacillin/Tazobactam 3.375 GM in D5% in Water (Mini-Bag+) 100 ML IVPB SCH ×3 (00:39→18:15)
[2017-04-04] MEDS: Ipratropium/Albuterol Neb 3 ML IH SCH ×4 (03:00→22:07)
[2017-04-04] MEDS: Ciprofloxacin OPTH Soln 2.5 ML BOTTLE BOTH EYES SCH ×5 (03:10→20:36)
[2017-04-04] MEDS: Haloperidol Lactate 5 MG/ML VIAL IVP PRN (04:44)
[2017-04-04] MEDS: D5% in 0.2% NACL w KCl 1,000 ML IVC SCH ×2 (05:40→23:53)
[2017-04-04] MEDS: *HR* Morphine 2 MG/ML SYRINGE IVP SCH ×4 (05:41→23:45)
[2017-04-04] MEDS: *HR* Heparin 5,000 UNIT/ML VIAL SQ SCH ×2 (05:47→18:16)
[2017-04-04 05:51] LABS: Basophils % 0.1 %; Hemoglobin 9.5 g/dL (11.5-15.4); Immature Granulocytes % 0.4 % (0-4); Lymphocytes # 1.4 K/mcL (0.6-4.6); Lymphocytes % 9.8 %; Mean Corpuscular HGB Conc 31.7 g/dL (31.6-35.5); Mean Corpuscular Hemoglobin 30.2 pg (28.0-33.3); Mean Corpuscular Volume 95.2 fL (83.0-100.0); Mean Platelet Volume 12.2 fL (9.4-12.4); Monocytes # 0.9 K/mcL (0.0-1.3); Monocytes % 6.5 %; Platelet Count 199 K/mcL (140-400); Red Blood Count 3.15 M/mcL (3.82-4.97); Red Cell Distribution Width 12.7 % (11.5-14.5); Segmented Neutrophils % 83.2 %
[2017-04-04 05:58] LABS: Neutrophils # 11.5 K/mcL (1.6-8.9)
[2017-04-04 06:09] LABS: BUN/Creatinine Ratio 17 (6-26); Blood Urea Nitrogen 14 mg/dL (7-20); Calcium 7.2 mg/dL (8.6-10.8); Carbon Dioxide 18 mEq/L (19-29); Chloride 110 mEq/L (98-109); Glucose 74 mg/dL (70-99); Osmolality,Calculated 289 (280-300); Potassium 3.5 mEq/L (3.5-4.5); Sodium 140 mEq/L (136-145); eGFR For African Americans > 60 (> 60); eGFR For Non-African Americans > 60 (> 60)
[2017-04-04 06:25] LABS: Platelet Estimate Normal (Normal)
[2017-04-04 06:26] LABS: Large Platelets Present (Not Present)
[2017-04-04] MEDS: Ketorolac 15 MG/ML VIAL IVP PRN (07:49)
[2017-04-04] MEDS: Cyanocobalamin (B-12) 1,000 MCG/ML VIAL SQ SCH (07:53)
[2017-04-04] MEDS: Budesonide Neb 0.5 MG/2 ML IH SCH ×2 (11:28→22:07)
--- NOTE | 2017-04-04 12:25 | Palliative Progress Note ---
Date of Encounter: 04/04/17 Time of Encounter: 09:45 - Assessment and plan (1) Counseling regarding advanced care planning and goals of care Current Visit: Yes Status: Acute Assessment and plan: Plans for [facility] back [facility] tomorrow. (2) Chronic pain Current Visit: Yes Status: Acute Assessment and plan: Continue with fentanyl patch and morphine. Qualifiers: Chronic pain type: other chronic pain Qualified Code(s): G89.29 - Other chronic pain (3) Restlessness and agitation Current Visit: Yes Status: Acute Assessment and plan: Haloperidol 2mg every 6 hours as needed. Will transition to oral concentrate upon discharge. (4) Therapeutic opioid-induced constipation (OIC) Current Visit: Yes Status: Acute Assessment and plan: Continue to monitor. (5) Aspiration pneumonia Current Visit: Yes Status: Acute Qualifiers: Aspiration pneumonia type: unspecified Laterality: left Lung location: upper lobe of lung Qualified Code(s): J69.0 - Pneumonitis due to inhalation of food and vomit (6) Debility Current Visit: Yes Status: Acute - Time Spent With Patient Total time spent is greater than 50% in coordination of care (as documented) at patient's floor/unit and/or counseling patient: - Subjective Interval history: Ms. Smith is lying in bed, continues to be restless with agitation. She had used morphine every 6 hours and Haldol 2mg every 6 hours as needed. - Constitutional Vitals: Abnormal lab results WBC 13.8 K/mcL (4.3-11.1) H 04/04/17 04:40 RBC 3.15 M/mcL (3.82-4.97) L 04/04/17 04:40 Hgb 9.5 g/dL (11.5-15.4) L 04/04/17 04:40 Hct 30.0 % (35.3-44.9) L 04/04/17 04:40 Band Neutrophils % 16.0 % (0-4) H 04/03/17 04:36 Neutrophils # 11.5 K/mcL (1.6-8.9) H 04/04/17 04:40 Large Platelets Present (Not Present) A 04/04/17 04:40 Immature Plt Fraction 8.6 % (1.1-6.1) H 04/02/17 14:14 Chloride 110 mEq/L (98-109) H 04/04/17 04:40 Carbon Dioxide 18 mEq/L (19-29) L 04/04/17 04:40 Calcium 7.2 mg/dL (8.6-10.8) L 04/04/17 04:40 Iron 12 mcg/dL (50-170) L 04/03/17 04:36 % Saturation 10 % (15-50) L 04/03/17 04:36 Transferrin 83 mg/dL (180-382) L 04/03/17 04:36 Ferritin 467 ng/ml (5-204) H 04/03/17 04:36 Albumin 2.6 g/dL (3.5-5.0) L 04/01/17 09:19 Globulin 4.2 g/dL (2.4-3.5) H 04/01/17 09:19 Albumin/Globulin Ratio 0.6 (1.1-2.2) L 04/01/17 09:19 Vitamin B12 177 pg/mL (213-816) L 04/02/17 14:15 Urine Clarity Cloudy (Clear) A 04/01/17 09:42 Ur Specific [place] 1.026 (1.010-1.025) H 04/01/17 09:42 Urine Ketones 15 mg/dL (Negative) H 04/01/17 09:42 Urine Bilirubin Small (Negative) H 04/01/17 09:42 Ur Leukocyte Esterase Trace (Negative) H 04/01/17 09:42 Ur Squamous Epith Cells Many per lpf (None-Few) H 04/01/17 09:42 Ur Culture Indicated? YES (NO) A 04/01/17 09:42 Stool EAEC (PCR) DETECTED (Not detect) A 04/02/17 14:36 Exam: 87 year old female, agitated and restless, unable to follow commands. - ENT ENT exam: Present: mucous membranes dry - Respiratory Respiratory exam: Present: decreased breath sounds, rhonchi - Cardiovascular Cardiovascular exam: Present: RRR - GI/Abdominal GI/Abdominal exam: Present: normal bowel sounds. Absent: tenderness - Extremities Exam Additional comments: poor muscle tone - Neurological Exam Neurological exam: Present: alert, strengths equal and symetr throughout. Absent: oriented X3 Additional comments: unable to follow commands - Skin Skin exam: Present: dry, warm Palliative Quality Palliative Quality: Screen for Code Status: NA (awaiting contact of guardian), Screen for Goals of Care: NA, Screen for Pain: NA, If Pain Regimen Started, Initiate Bowel Regimen: NA, Screen for Nausea/Vomitting: NA Code Status: 04/01/17 11:59 Resuscitation Status: Active [RES] Routine Comment: Resuscitation Status: [id number] Resuscitation Status: Active [RES] Routine Comment: Resuscitation Status: DNR-Comfort Care - Labs CBC & Chem 7: 04/04/17 04:40 04/04/17 04:40 Labs: Laboratory Results - last 24 hr 04/03/17 04/03/17 04/03/17 00:39 06:52 10:23 WBC RBC Hgb Hct MCV MCH MCHC RDW Plt Count MPV Immature Gran % Seg Neutrophils % Lymphocytes % Monocytes % Eosinophils % Basophils % Neutrophils # Lymphocytes # Monocytes # Eosinophils # Basophils # Platelet Estimate Large Platelets Sodium Potassium Chloride Carbon Dioxide BUN Creatinine Est GFR ( Amer) Est GFR (Non-Af Amer) BUN/Creatinine Ratio Glucose POC Glucose 113 H 96 H 72 Calculated Osmolality Calcium 04/03/17 04/03/17 04/04/17 15:50 19:55 04:40 WBC 13.8 H RBC 3.15 L Hgb 9.5 L Hct 30.0 L MCV 95.2 MCH 30.2 MCHC 31.7 RDW 12.7 Plt Count 199 MPV 12.2 Immature Gran % 0.4 Seg Neutrophils % 83.2 Lymphocytes % 9.8 Monocytes % 6.5 Eosinophils % 0.0 Basophils % 0.1 Neutrophils # 11.5 H Lymphocytes # 1.4 Monocytes # 0.9 Eosinophils # 0.0 Basophils # 0.0 Platelet Estimate Normal Large Platelets Present A Sodium Potassium Chloride Carbon Dioxide BUN Creatinine Est GFR ( Amer) Est GFR (Non-Af Amer) BUN/Creatinine Ratio Glucose POC Glucose 115 H 74 Calculated Osmolality Calcium 04/04/17 04:40 WBC RBC Hgb Hct MCV MCH MCHC RDW Plt Count MPV Immature Gran % Seg Neutrophils % Lymphocytes % Monocytes % Eosinophils % Basophils % Neutrophils # Lymphocytes # Monocytes # Eosinophils # Basophils # Platelet Estimate Large Platelets Sodium 140 Potassium 3.5 Chloride 110 H Carbon Dioxide 18 L BUN 14 Creatinine 0.82 Est GFR ( Amer) > 60 Est GFR (Non-Af Amer) > 60 BUN/Creatinine Ratio 17 Glucose 74 POC Glucose Calculated Osmolality 289 Calcium 7.2 L Consult Discharge Plan - Plan Referrals: Dawit Baez MD [Primary Care Provider] - (web request 04/02/17)
[2017-04-04] MEDS ORDERED: Aminoglycoside Consult 1 EACH MC ONE (12:29)
[2017-04-04] MEDS: *HR* LORazepam 2 MG/ML VIAL IVP SCH ×2 (13:05→20:25)
--- NOTE | 2017-04-04 13:11 | Internal Med Progress Note ---
Date of Encounter: 04/04/17 Time of Encounter: 08:30 - Assessment and plan (1) Sepsis Current Visit: Yes Status: Acute Assessment and plan: Continue Zosyn. We will stop vancomycin. WBC count is slowly improving. patient is being transitioned to hospice Qualifiers: Sepsis type: sepsis due to unspecified organism Qualified Code(s): A41.9 - Sepsis, unspecified organism (2) Pneumonia Current Visit: Yes Status: Suspected Qualifiers: Pneumonia type: aspiration pneumonia Laterality: left Lung location: upper lobe of lung Qualified Code(s): J69.0 - Pneumonitis due to inhalation of food and vomit (3) Failure to thrive Current Visit: Yes Status: Acute Assessment and plan: Poor overall prognosis. Palliative care following. We will transition to hospice Qualifiers: Failure to thrive age range: in adult Qualified Code(s): R62.7 - Adult failure to thrive (4) Anemia Current Visit: Yes Status: Chronic Assessment and plan: Stable Qualifiers: Anemia type: iron deficiency Iron deficiency anemia type: inadequate dietary iron intake Qualified Code(s): D50.8 - Other iron deficiency anemias (5) Diarrhea Current Visit: Yes Status: Resolved Assessment and plan: With EAEC + in stools. Improved Qualifiers: Diarrhea type: unspecified type Qualified Code(s): R19.7 - Diarrhea, unspecified (6) Conjunctivitis Current Visit: Yes Status: Acute Assessment and plan: Continue Cipro eyedrops Qualifiers: Conjunctivitis type: acute Acute conjunctivitis type: bacterial Laterality: bilateral Qualified Code(s): H10.33 - Unspecified acute conjunctivitis, bilateral (7) Dehydration Current Visit: Yes Status: Acute Assessment and plan: Continue IV hydration (8) HCAP (healthcare-associated pneumonia) Current Visit: Yes Status: Acute (9) Acute respiratory failure with hypoxia Current Visit: Yes Status: Acute Assessment and plan: Due to pneumonia. Continue O2 supplementation (10) Protein calorie malnutrition Current Visit: Yes Status: Acute Assessment and plan: Patient currently nothing by mouth due to aspiration risk. Being transitioned to hospice - Subjective Interval history: Remains nonverbal. No improvement in overall status. - Constitutional Vitals: Temp Pulse Resp BP Pulse Ox 101.1 F H 131 20 110/44 100 04/04/17 12:12 04/04/17 12:12 04/04/17 11:28 04/04/17 07:16 04/04/17 11:28 General appearance: Present: cachectic, A&O X 0, underweight. Absent: answers questions appropriately - ENT ENT exam: Present: mucous membranes dry - Respiratory Respiratory exam: Present: rales (bilateral). Absent: accessory muscle use, rhonchi, wheezes - Cardiovascular Cardiovascular exam: Present: RRR, +S1, +S2. Absent: diastolic murmur, gallop, rubs, systolic murmur - Neurological Exam Neurological exam: Absent: facial droop, speech deficit Additional comments: Hyperreflexia and contractures - Skin Skin exam: Present: dry, intact Internal Medicine: Result - Labs CBC & Chem 7: 04/04/17 04:40 04/04/17 04:40 Labs: Short CBC 04/04/17 Range/Units 04:40 WBC 13.8 H (4.3-11.1) K/mcL Hgb 9.5 L (11.5-15.4) g/dL Hct 30.0 L (35.3-44.9) % Plt Count 199 (140-400) K/mcL Neutrophils # 11.5 H (1.6-8.9) K/mcL BMP 04/04/17 04:40 Sodium 140 Potassium 3.5 Chloride 110 H Carbon Dioxide 18 L BUN 14 Creatinine 0.82 Glucose 74 Calcium 7.2 L - VTE Documentation of Mechanical Device: Graduated compression elastic hosiery Consult Discharge Plan - Plan Referrals: Dawit Baez MD [Primary Care Provider] - (web request 04/02/17) - Attending Attestation This document has been at least partially created by xkoto recognition technology by Dr. Waddell. Errors in grammar, wording or other phrases may exist. If errors are found after the documentation is signed, they will be addressed individually in the addendum section of this document when appropriate.
[2017-04-04] MEDS: Acetaminophen IV 1,000 MG/100 ML INFUS..BTL IV PRN (14:19)
[2017-04-04] MEDS ORDERED: Vancomycin 1,250 MG in D5% in Water 250 ML IVPB SCH (14:30)
[2017-04-04] MEDS: Sodium Ferric Gluconat/Sucrose 125 MG in 0.9 % Sodium Chloride 100 ML IVPB SCH (22:50)
[2017-04-05] MEDS: Piperacillin/Tazobactam 3.375 GM in D5% in Water (Mini-Bag+) 100 ML IVPB SCH ×2 (00:45→08:25)
[2017-04-05] MEDS: Ciprofloxacin OPTH Soln 2.5 ML BOTTLE BOTH EYES SCH ×4 (00:52→11:30)
[2017-04-05] MEDS: *HR* LORazepam 2 MG/ML VIAL IVP SCH ×2 (03:36→11:30)
[2017-04-05] MEDS: Ipratropium/Albuterol Neb 3 ML IH SCH ×2 (04:08→10:48)
[2017-04-05] MEDS: *HR* Heparin 5,000 UNIT/ML VIAL SQ SCH (06:11)
[2017-04-05] MEDS: *HR* Morphine 2 MG/ML SYRINGE IVP SCH ×2 (06:25→11:30)
[2017-04-05 07:03] VITALS: BP 81/53
[2017-04-05] MEDS: D5% in 0.2% NACL w KCl 1,000 ML IVC SCH ×2 (08:19→10:00)
[2017-04-05] MEDS: Cyanocobalamin (B-12) 1,000 MCG/ML VIAL SQ SCH (08:25)
--- NOTE | 2017-04-05 09:43 | Discharge Summary ---
Date of Encounter: 04/05/17 Time of Encounter: 09:41 - Discharge Diagnosis (1) Sepsis Priority: Primary Status: Acute Qualifiers: Sepsis type: sepsis due to unspecified organism Qualified Code(s): A41.9 - Sepsis, unspecified organism (2) Pneumonia Priority: Secondary Status: Acute Qualifiers: Pneumonia type: aspiration pneumonia Laterality: left Lung location: upper lobe of lung Qualified Code(s): J69.0 - Pneumonitis due to inhalation of food and vomit (3) Failure to thrive Priority: Secondary Status: Acute Qualifiers: Failure to thrive age range: in adult Qualified Code(s): R62.7 - Adult failure to thrive (4) Anemia Priority: Secondary Status: Chronic Qualifiers: Anemia type: iron deficiency Iron deficiency anemia type: inadequate dietary iron intake Qualified Code(s): D50.8 - Other iron deficiency anemias (5) Diarrhea Priority: Secondary Status: Resolved Qualifiers: Diarrhea type: unspecified type Qualified Code(s): R19.7 - Diarrhea, unspecified (6) Conjunctivitis Priority: Secondary Status: Acute Qualifiers: Conjunctivitis type: acute Acute conjunctivitis type: bacterial Laterality: bilateral Qualified Code(s): H10.33 - Unspecified acute conjunctivitis, bilateral (7) Dehydration Priority: Secondary Status: Acute (8) HCAP (healthcare-associated pneumonia) Priority: Secondary Status: Acute (9) Acute respiratory failure with hypoxia Priority: Secondary Status: Acute (10) Protein calorie malnutrition Priority: Secondary Status: Acute - Discharge Medications Prescriptions: Hyoscyamine SL [Levsin SL] 0.125 mg SL Q4HR #12 tab.subl FentaNYL PATCH [Duragesic] 1 each TD Q72H #3 patch.td72 Haloperidol Oral Conc [Haldol] 2 mg PO Q4H PRN #15 mls PRN Reason: Agitation LORazepam [Lorazepam Intensol] 1 mg PO Q4H PRN #15 oral.conc PRN Reason: anxiety/restlessness Morphine Oral CONC [Roxanol] 0.5 - 1 ml PO Q1H PRN #15 ml PRN Reason: pain/dyspnea Home Medications: Budesonide Neb [Pulmicort Neb] 0.5 mg IH BIDR 04/29/16 [History] Ipratropium/Albuterol Neb [Duoneb] 3 ml IH Q6HR 03/16/17 [History] Albuterol Neb [Proventil Neb] 2.5 mg IH Q6H PRN 04/01/17 [History] Phenol/Glycerin [Chloraseptic Max [place]] 1 spray MM Q2H PRN 04/01/17 [History] FentaNYL PATCH [Duragesic] 1 each TD Q72H #3 patch.td72 04/05/17 [Rx] Haloperidol Oral Conc [Haldol] 2 mg PO Q4H PRN #15 mls 04/05/17 [Rx] Hyoscyamine SL [Levsin SL] 0.125 mg SL Q4HR #12 tab.subl 04/05/17 [Rx] LORazepam [Lorazepam Intensol] 1 mg PO Q4H PRN #15 oral.conc 04/05/17 [Rx] Morphine Oral CONC [Roxanol] 0.5 - 1 ml PO Q1H PRN #15 ml 04/05/17 [Rx] Allergies/Adverse Reactions: Allergies tb skin test Allergy (Uncoded 05/30/16 08:08) See Comments Date of admission: 04/01/17 16:11 Primary care physician: Dawit Baez MD Consults: 04/02/17 15:33 Consult to Palliative Care [CONS] Routine Comment: Consulting Provider: Palliative Care [place] Reason for Consult: 87 MRDD patient who cannot swallow and is FTT. Patient is a sims of the [facility] Time Notified: 15:33 Call Completed: Yes 04/02/17 16:11 Consult to Nutrition [CONS] Routine Comment: alternative means of nutrition Consulting Provider: NUTRITION Reason for Dietary Consult: Other Discharging clinician: Donovan Waddell Anticipated date of discharge: 04/05/17 - Patient Status Disposition: Hospice - Home Condition: Undetermined Functional capacity at discharge: bed bound Overall status at discharge: patient is not back to baseline - Discharge Instructions Instructions: Sepsis (DC) Follow Up With: Dawit Baez MD [Primary Care Provider] - (web request 04/02/17) Forms: ED Satisfaction Letter - Diet and Activity Activity: wear oxygen at all times Diet: other (NPO / Pureed diet for comfort) Hospital course: Ms. Smith is a 87 year old female patient with history of mental development disorder, COPD, osteoporosis, who lives in a retirement was admitted here with acute respiratory failure and sepsis related to possible aspiration pneumonia. She was found to be having an elevated lactate along with leukocytosis and tachycardia. She was also having altered mental status and failure to thrive at home with decreased nutrition. Her blood work also showed hypernatremia and dehydration. She was started on treatment for these conditions with IV antibiotics, O2 supplementation, IV fluids. While her sepsis seems to be improving, she remains altered. Speech therapy evaluated the patient and patient did not perform well with a barium swallow and was not able to follow instructions. As such she was placed nothing by mouth. She has a state appointed guardian was informed of the patient's condition and after discussing with the palliative care team, she was made DNR comfort care and they also decided that the patient would not be a candidate for feeding to other mechanisms including feeding tubes due to poor chance of recovery. As such she was transitioned to hospice and will be discharged to hospice at home today. - Time Spent with Patient Total time spent providing and/or coordinating discharge services: Less than 30 minutes (25 min) - Constitutional Vitals: Temp Pulse Resp BP Pulse Ox 97.8 F 71 17 81/53 99 04/05/17 07:01 04/05/17 07:01 04/05/17 07:01 04/05/17 07:01 04/05/17 07:01 General appearance: Present: cachectic, A&O X 0, underweight. Absent: answers questions appropriately - Respiratory Respiratory exam: Present: prolonged expiratory phase. Absent: accessory muscle use, rales, rhonchi, wheezes Additional comments: coarse breath sounds bilaterally - Cardiovascular Cardiovascular exam: Present: RRR, +S1, +S2. Absent: diastolic murmur, gallop, rubs, systolic murmur - Extremities Exam Extremities exam: Present: warm, radial pulses palpable and symetrical. Absent : calf tenderness, cyanotic, pedal edema - VTE Documentation of Mechanical Device: Graduated compression elastic hosiery - Attending Attestation This document has been at least partially created by En[employer] recognition technology by Dr. Waddell. Errors in grammar, wording or other phrases may exist. If errors are found after the documentation is signed, they will be addressed individually in the addendum section of this document when appropriate.
[2017-04-05] MEDS: Haloperidol Lactate 5 MG/ML VIAL IVP PRN (09:58)
--- NOTE | 2017-04-05 09:58 | Physician Discharge Referral ---
Home Health/Hosp Referral Info Transfer to: Hospice Provider in Charge Post Discharge: Credit Negotiator - Diagnosis (1) Sepsis Priority: Primary Status: Acute (2) Pneumonia Priority: Secondary Status: Acute (3) Failure to thrive Priority: Secondary Status: Acute (4) Anemia Priority: Secondary Status: Chronic (5) Diarrhea Priority: Secondary Status: Resolved (6) Conjunctivitis Priority: Secondary Status: Acute (7) Dehydration Priority: Secondary Status: Acute (8) HCAP (healthcare-associated pneumonia) Priority: Secondary Status: Acute (9) Acute respiratory failure with hypoxia Priority: Secondary Status: Acute (10) Protein calorie malnutrition Priority: Secondary Status: Acute - Respiratory Orders Oxygen / L per min (keep sats >88%) Smoking Cessation: Smoking cessation has been advised. For more information, call the [employer] Quit Line at [phone]. - Diet/Nutrition Diet/Nutrition Orders: Pureed (for comfort) - Activity Activity Orders: Bedrest - Services Needed Following services are medically necessary services: Nursing - Transfer Medications Prescriptions: Hyoscyamine SL [Levsin SL] 0.125 mg SL Q4HR #12 tab.subl FentaNYL PATCH [Duragesic] 1 each TD Q72H #3 patch.td72 Haloperidol Oral Conc [Haldol] 2 mg PO Q4H PRN #15 mls PRN Reason: Agitation LORazepam [Lorazepam Intensol] 1 mg PO Q4H PRN #15 oral.conc PRN Reason: anxiety/restlessness Morphine Oral CONC [Roxanol] 0.5 - 1 ml PO Q1H PRN #15 ml PRN Reason: pain/dyspnea Home Medications: Budesonide Neb [Pulmicort Neb] 0.5 mg IH BIDR 04/29/16 [History] Ipratropium/Albuterol Neb [Duoneb] 3 ml IH Q6HR 03/16/17 [History] Albuterol Neb [Proventil Neb] 2.5 mg IH Q6H PRN 04/01/17 [History] Phenol/Glycerin [Chloraseptic Max [place]] 1 spray MM Q2H PRN 04/01/17 [History] FentaNYL PATCH [Duragesic] 1 each TD Q72H #3 patch.td72 04/05/17 [Rx] Haloperidol Oral Conc [Haldol] 2 mg PO Q4H PRN #15 mls 04/05/17 [Rx] Hyoscyamine SL [Levsin SL] 0.125 mg SL Q4HR #12 tab.subl 04/05/17 [Rx] LORazepam [Lorazepam Intensol] 1 mg PO Q4H PRN #15 oral.conc 04/05/17 [Rx] Morphine Oral CONC [Roxanol] 0.5 - 1 ml PO Q1H PRN #15 ml 04/05/17 [Rx] Allergies/Adverse Reactions: Allergies tb skin test Allergy (Uncoded 05/30/16 08:08) See Comments Certification: Further, I certify that my clinical findings support that this patient is homebound (i.e. absences from home require considerable and taxing effort and are for medical reasons or restorationism services or infrequently or short duration when for other reasons) because: Homebound Reason: Patient requires assistance of a person or device to safely leave home, Altered mental status requiring supervision when leaving home, Severity of cardiac or pulmonary status limits activity tolerance Attestation: My signature below is to certify that this patient is under my care and that I, or nurse practitioner, or a physician's graduate assistant athletic trainer working with me, has a face-to -face encounter with this patient.
[2017-04-05] MEDS: Budesonide Neb 0.5 MG/2 ML IH SCH (10:48)
--- NOTE | 2017-04-05 11:25 | Palliative Progress Note ---
Date of Encounter: 04/05/17 Time of Encounter: 09:00 - Assessment and plan (1) Restlessness and agitation Current Visit: Yes Status: Acute Assessment and plan: Continues with Haloperidol/Lorazepam. Will write prescriptions for [facility] (2) Chronic pain Current Visit: Yes Status: Acute Assessment and plan: Continue Fentanyl patch and Roxanol concentrate for breakthrough. Prescriptions prepared for hospice. Qualifiers: Chronic pain type: other chronic pain Qualified Code(s): G89.29 - Other chronic pain (3) Therapeutic opioid-induced constipation (OIC) Current Visit: Yes Status: Acute (4) Counseling regarding advanced care planning and goals of care Current Visit: Yes Status: Acute Assessment and plan: Spoke with Dr. Waddell and manager distribution Imelda Guillen for [facility]. Patient to be discharged with [facility] today. Telephone conversation with Evelyne Moise - [facility], she will be enrolled after discharge at the [facility]. Prescriptions for hospice faxed to pharmacy. (5) Aspiration pneumonia Current Visit: Yes Status: Acute Qualifiers: Aspiration pneumonia type: unspecified Laterality: left Lung location: upper lobe of lung Qualified Code(s): J69.0 - Pneumonitis due to inhalation of food and vomit (6) Debility Current Visit: Yes Status: Acute (7) Protein calorie malnutrition Current Visit: Yes Status: Acute - Time Spent With Patient Total time spent is greater than 50% in coordination of care (as documented) at patient's floor/unit and/or counseling patient: 25 - 35 minutes - Subjective Interval history: Patient awake and alert. Restless. Unable to understand speech. No family present. - Constitutional Vitals: Abnormal lab results WBC 13.8 K/mcL (4.3-11.1) H 04/04/17 04:40 RBC 3.15 M/mcL (3.82-4.97) L 04/04/17 04:40 Hgb 9.5 g/dL (11.5-15.4) L 04/04/17 04:40 Hct 30.0 % (35.3-44.9) L 04/04/17 04:40 Band Neutrophils % 16.0 % (0-4) H 04/03/17 04:36 Neutrophils # 11.5 K/mcL (1.6-8.9) H 04/04/17 04:40 Large Platelets Present (Not Present) A 04/04/17 04:40 Immature Plt Fraction 8.6 % (1.1-6.1) H 04/02/17 14:14 Chloride 110 mEq/L (98-109) H 04/04/17 04:40 Carbon Dioxide 18 mEq/L (19-29) L 04/04/17 04:40 POC Glucose 161 (58-89) H 04/05/17 01:01 Calcium 7.2 mg/dL (8.6-10.8) L 04/04/17 04:40 Iron 12 mcg/dL (50-170) L 04/03/17 04:36 % Saturation 10 % (15-50) L 04/03/17 04:36 Transferrin 83 mg/dL (180-382) L 04/03/17 04:36 Ferritin 467 ng/ml (5-204) H 04/03/17 04:36 Albumin 2.6 g/dL (3.5-5.0) L 04/01/17 09:19 Globulin 4.2 g/dL (2.4-3.5) H 04/01/17 09:19 Albumin/Globulin Ratio 0.6 (1.1-2.2) L 04/01/17 09:19 Vitamin B12 177 pg/mL (213-816) L 04/02/17 14:15 Urine Clarity Cloudy (Clear) A 04/01/17 09:42 Ur Specific Hilger 1.026 (1.010-1.025) H 04/01/17 09:42 Urine Ketones 15 mg/dL (Negative) H 04/01/17 09:42 Urine Bilirubin Small (Negative) H 04/01/17 09:42 Ur Leukocyte Esterase Trace (Negative) H 04/01/17 09:42 Ur Squamous Epith Cells Many per lpf (None-Few) H 04/01/17 09:42 Ur Culture Indicated? YES (NO) A 04/01/17 09:42 Stool EAEC (PCR) DETECTED (Not detect) A 04/02/17 14:36 General appearance: Present: no acute distress - Respiratory Respiratory exam: Present: decreased breath sounds, CTAB - Cardiovascular Cardiovascular exam: Present: +S1, +S2 - GI/Abdominal GI/Abdominal exam: Present: normal bowel sounds, soft - Neurological Exam Neurological exam: Present: alert - Skin Skin exam: Present: dry, pallor, warm Palliative Quality Palliative Quality: Screen for Code Status: NA (awaiting contact of guardian), Screen for Goals of Care: NA, Screen for Pain: NA, If Pain Regimen Started, Initiate Bowel Regimen: NA, Screen for Nausea/Vomitting: NA Code Status: 04/01/17 11:59 Resuscitation Status: Active [RES] Routine Comment: Resuscitation Status: [id number] Resuscitation Status: Active [RES] Routine Comment: Resuscitation Status: DNR-Comfort Care - Labs CBC & Chem 7: 04/04/17 04:40 04/04/17 04:40 Labs: Laboratory Results - last 24 hr 04/04/17 04/04/17 04/04/17 07:15 12:14 13:12 POC Glucose 73 104 H Vancomycin Trough 12.5 04/04/17 04/05/17 19:48 01:01 POC Glucose 171 H 161 H Vancomycin Trough - Impressions Impressions Videofluoroscopic Swallow 04/02/17 07:00 IMPRESSION: Attempted barium swallow, terminated prematurely, as patient could not cooperate. Please see separate speech pathology report for full discussion of findings and recommendations. D/ / 04/02/2017 16:35:16 Kami Goldberg MD / abraham Interpreting Provider: Kami Goldberg MD Consult Discharge Plan - Plan Instructions: Sepsis (DC) Referrals: Dawit Baez MD [Primary Care Provider] - (web request 04/02/17) Prescriptions: Hyoscyamine SL [Levsin SL] 0.125 mg SL Q4HR #12 tab.subl FentaNYL PATCH [Duragesic] 1 each TD Q72H #3 patch.[id number] Haloperidol Oral Conc [Haldol] 2 mg PO Q4H PRN #15 mls PRN Reason: Agitation LORazepam [Lorazepam Intensol] 1 mg PO Q4H PRN #15 oral.conc PRN Reason: anxiety/restlessness Morphine Oral CONC [Roxanol] 0.5 - 1 ml PO Q1H PRN #15 ml PRN Reason: pain/dyspnea
[2017-04-05] MEDS: *HR* FentaNYL PATCH 25 MCG PATCH TD SCH (11:30)
== END 2017-04-05 12:30 | disposition hospice, home (50) | DRG 871 ==
LOC: EMEROO 08:51 → SUATTDRO 16:11 → 2ANU 16:11
PROVIDERS: ADMIT Hospitalist; ATTEND Internal Medicine